=== PATIENT | female | born 1965 | race Caucasian/White ===

== ENCOUNTER 2023-05-10 09:08 | Outpatient (OUT) | payer OTHER, SELFPAY ==
[2023-05-10 09:35] LABS: Basophils Percent Auto 0.9 % (0.2-2.0); Eosinophils Absolute Auto 0.1 10^3/uL (0.0-0.7); Eosinophils Percent Auto 1.9 % (0.9-7.0); Hemoglobin 13.7 g/dL (12.0-16.0); Immature Granulocytes Abs Auto 0.01 10^3/uL (0.00-0.03); Immature Granulocytes Pct Auto 0.2 % (0.0-0.5); Mean Corpuscular HGB Conc 32.6 g/dL (29.9-35.2); Mean Corpuscular Volume 91.9 fL (81.0-99.0); Mean Platelet Volume 9.3 fL (9.5-13.5); Monocytes Absolute Auto 0.4 10^3/uL (0.3-0.8); Monocytes Percent Auto 9.8 % (1.7-12.0); Neutrophils Absolute Auto 2.7 10^3/uL (1.4-6.5); Neutrophils Percent Auto 63.2 % (43.0-75.0); Platelet Count 328 10^3/uL (150-450); Red Blood Count 4.57 10^6/uL (4.20-5.40); Red Cell Distribution Width 13.1 % (11.0-15.0); White Blood Count 4.3 10^3/uL (4.0-11.0)
[2023-05-10 12:14] LABS: Alanine Aminotransferase 19 U/L (14-59); Albumin Globulin Ratio 1.1; Albumin Level 4.1 g/dL (3.4-5.0); Alkaline Phosphatase 72 U/L (46-116); Aspartate Amino Transferase 21 U/L (15-37); BUN Creatinine Ratio 9.6; Bilirubin Total 0.5 mg/dL (0.2-1.0); Calcium 9.7 mg/dL (8.5-10.1); Carbon Dioxide 28.6 mmol/L (21.0-32.0); Chloride 102 mmol/L (98-107); Chol HDL Ratio 2.2; Cholesterol 181 mg/dL (<=200); Estimated GFR (African America >60 (>=60); Estimated GFR (Non-African Ame >60 (>=60); Free T3 2.38 pg/mL (2.18-3.98); Globulin 3.9 g/dL; Glucose 100 mg/dL (74-106); HDL Cholesterol 84 mg/dL (40-60); Potassium 4.6 mmol/L (3.5-5.1); Sodium 139 mmol/L (136-145); Thyroid Stimulating Hormone 3.138 uIU/mL (0.358-3.740); Triglycerides 51 mg/dL (<=150); VLDL CHOLESTEROL 10.2 mg/dL
[2023-05-10 12:55] LABS: Estimated Average Glucose 114 mg/dL; Glycohemoglobin A1C 5.6 % (4.5-6.2)
[2023-05-11 12:09] LABS: Insulin 4.5 uIU/mL (2.6-24.9)
== END 2023-05-10 09:09 | disposition home or self-care (01) ==
LOC: LAB 09:13
PROVIDERS: PCP Family Medicine; Visit Provider Nurse Practitioner Family
DX: Z00.00 Encounter for general adult medical examination without abnormal findings (principal)
CPT/HCPCS: 36415; 80053; 80061; 82306; 83036; 83525; 83540; 84436; 84443; 84481; 85025

== ENCOUNTER 2023-08-09 09:24 | Outpatient (OUT) | payer OTHER, SELFPAY ==
--- NOTE | 2023-08-09 | XR_ITS ---
The [address] [address] Patient Name: CORA HERNÁNDEZ MRN: [id number] date: 1965 Sex: F Assigned Patient Location: [facility] Current Patient Location: LAB Accession/Order Number: [id number] Exam Date: 08/09/2023 09:34 Report Date: 08/10/2023 06:46 At the request of: SÁNCHEZ SHARIF Procedure: XR hip LT 2V w/ pelvis PROCEDURE: XR hip LT 2V w/ pelvis HISTORY: M25.50 Arthralgia ; chronic hip pain COMPARISON: None. FINDINGS: BONES:No fracture, acute abnormality, or significant arthropathy. SOFT TISSUES:No visible soft tissue swelling. EFFUSION:None visible. OTHER: Suspect narrowing of the L4-5 disc space. XR/XR hip LT 2V w/ pelvis IMPRESSION: 1. Normal appearance of the hip joints. 2. Suspect degenerative disc disease of lower lumbar spine. Electronically authenticated by: TIMOTHY ABARCA Date: 08/10/2023 06:46
== END 2023-08-09 09:25 | disposition home or self-care (01) ==
LOC: RAD 09:25
PROVIDERS: PCP Family Medicine; Visit Provider Family Medicine
DX: M25.50 Pain in unspecified joint (principal)
CPT/HCPCS: 73502

== ENCOUNTER 2023-08-10 06:31 | Outpatient (OUT) | payer OTHER, SELFPAY ==
[2023-08-10 07:05] LABS: Basophils Absolute Auto 0.1 10^3/uL (0.0-0.1); Basophils Percent Auto 0.8 % (0.2-2.0); Eosinophils Absolute Auto 0.2 10^3/uL (0.0-0.7); Eosinophils Percent Auto 3.3 % (0.9-7.0); Hematocrit 39.9 % (36.0-48.0); Hemoglobin 13.1 g/dL (12.0-16.0); Immature Granulocytes Abs Auto 0.01 10^3/uL (0.00-0.03); Immature Granulocytes Pct Auto 0.2 % (0.0-0.5); Lymphocytes Absolute Auto 1.3 10^3/uL (1.2-3.8); Mean Corpuscular HGB Conc 32.8 g/dL (29.9-35.2); Mean Corpuscular Volume 91.5 fL (81.0-99.0); Mean Platelet Volume 9.3 fL (9.5-13.5); Monocytes Absolute Auto 0.6 10^3/uL (0.3-0.8); Monocytes Percent Auto 10.3 % (1.7-12.0); Neutrophils Absolute Auto 3.8 10^3/uL (1.4-6.5); Neutrophils Percent Auto 63.4 % (43.0-75.0); Platelet Count 321 10^3/uL (150-450); Red Blood Count 4.36 10^6/uL (4.20-5.40); Red Cell Distribution Width 13.2 % (11.0-15.0)
[2023-08-10 07:57] LABS: Alanine Aminotransferase 21 U/L (14-59); Albumin Globulin Ratio 1.1; Albumin Level 3.6 g/dL (3.4-5.0); Alkaline Phosphatase 60 U/L (46-116); Anion Gap 12.3; Aspartate Amino Transferase 24 U/L (15-37); BUN Creatinine Ratio 17.7; Bilirubin Total 0.5 mg/dL (0.2-1.0); Calcium 9.3 mg/dL (8.5-10.1); Carbon Dioxide 31.7 mmol/L (21.0-32.0); Chloride 102 mmol/L (98-107); Estimated GFR (African America >60 (>=60); Estimated GFR (Non-African Ame >60 (>=60); Globulin 3.4 g/dL; Glucose 83 mg/dL (74-106); Sodium 142 mmol/L (136-145); Thyroid Stimulating Hormone 2.753 uIU/mL (0.358-3.740); Uric Acid 4.8 mg/dL (2.6-6.0)
[2023-08-10 08:12] LABS: C Reactive Protein <0.2 mg/dL (<=1.0)
[2023-08-10 10:33] LABS: Free T4 0.89 ng/dL (0.76-1.46)
[2023-08-11 06:09] LABS: Antistreptolysin O Ab 271.4 IU/mL (0.0-200.0); Rheumatoid Factor (RF) 11.8 IU/mL (<14.0)
[2023-08-14 09:10] LABS: Antinuclear Antibodies, IFA Positive (.)
== END 2023-08-10 06:32 | disposition home or self-care (01) ==
PROVIDERS: PCP Family Medicine; Visit Provider Family Medicine
DX: M25.50 Pain in unspecified joint (principal)
CPT/HCPCS: 36415; 80053; 84439; 84443; 84550; 85025; 86038; 86060; 86140; 86430; 86431

== ENCOUNTER 2023-09-01 07:35 | Outpatient (OUT) | payer OTHER, SELFPAY ==
[2023-09-01 08:29] LABS: Creatinine Urine Random 147.94 mg/dL (20.00-300.00); Protein Creatinine Ratio Urine 0.09; Total Protein Urine Random 13.2 mg/dL (<=11.9)
[2023-09-03 12:08] LABS: Anti-Centromere B Antibodies <0.2 AI (0.0-0.9); Anti-DNA (DS) Ab Qn 2 IU/mL (0-9); Anti-Jo-1 <0.2 AI (0.0-0.9); Antichromatin Antibodies <0.2 AI (0.0-0.9); Antiribosomal P Antibodies <0.2 AI (0.0-0.9); Antiscleroderma-70 Antibodies <0.2 AI (0.0-0.9); RNP Antibodies <0.2 AI (0.0-0.9); Sjogren's Anti-SS-A <0.2 AI (0.0-0.9); Sjogren's Anti-SS-B <0.2 AI (0.0-0.9); Smith/RNP Antibodies <0.2 AI (0.0-0.9)
== END 2023-09-01 07:36 | disposition home or self-care (01) ==
PROVIDERS: PCP Family Medicine
DX: R76.8 Other specified abnormal immunological findings in serum (principal)
CPT/HCPCS: 36415; 82570; 83516; 84156; 86225; 86235

== ENCOUNTER 2024-04-28 09:18 | Outpatient (OUT) | payer OTHER, SELFPAY ==
--- OUTSIDE RECORDS SUMMARY | 2024-04-28 09:31 | XMS_ITS ---
Patient Summarization (C-CDA 2.1 CCD) Created on: April 28, 2024 JAICNTA DHALIWAL : 1965 Sex: Female Author Organization Sample organization Care Team Providers Care Backend Python Developer Name Role Phone CHANTE, DR POZO Attending Unavailable HOY, DR POZO Consulting Unavailable HOY, DR POZO Primary Care Unavailable HOY, DR POZO Admitting Unavailable WEST, DR KEVIN Alberto Consulting Unavailable HOY, DR POZO Consulting Unavailable HOY, DR POZO Primary Care Unavailable HOY, DR POZO Admitting Unavailable HOY, DR POZO Attending Unavailable WEST, DR KEVIN Alberto Consulting Unavailable HOY, DR POZO Consulting Unavailable HOY, DR POZO Primary Care Unavailable HOY, DR POZO Admitting Unavailable HOY, DR POZO Referring Unavailable HOY, DR POZO Attending Unavailable WEST, DR KEVIN Alberto Consulting Unavailable Allyn, Paula Unavailable Encounters Encounter Date Encounter Type Care Provider Facility Start: 03-24-2023 End: 03-24-2023 ambulatory Paula Gruber Other [facility] Other Start: 03-24-2023 Office outpatient vi sit 15 minutes Paulabrea Gruber [facility] Start: 02-11-2023 End: 02-11-2023 ambulatory Paula Gruber Other [facility] Other Start: 02-11-2023 Office outpatient vi sit 15 minutes Paulabrea Gruber [facility] Start: 05-08-2022 End: 05-09-[address] SÁNCHEZ CORDOBA Facility:[facility] Start: 05-04-2022 Encounter for genera l adult medical examination without abnormal findings DR SÁNCHEZ CORDOBA [facility] Start: 04-27-2022 End: 04-28-[address] SÁNCHEZ CORDOBA Facility:[facility] Start: 04-27-2022 End: 04-28-2022 Encounter for general adult medical examination without abnormal findings DR SÁNCHEZ CORDOBA Facility:[facility] Start: 05-18-2021 End: 05-19-[address] SÁNCHEZ CORDOBA Facility:[facility] Medications Current Medications Medication Drug Class(es) Dates Sig (Normalized) Sig (Original) [id number] 200 actuat albuterol 0.09 mg/actuat metered dose inhaler (1 source) beta2-Adrenergic Agonist Start: 03-24-2023 take 2 puff(s) by inhalation four times daily as needed Albuterol Sulfate HFA 108 (90 Base) MCG/ACT 2 puffs Inhalation 4 times a day prn February, Active amoxicillin 875 mg / clavulanate 125 mg oral tablet (1 source) Penicillin-class Antibacterial Start: 03-24-2023 take 1 tablet by mouth every twelve hours Amoxicillin-Pot Clavulanate 875-125 MG 1 tablet Orally every 12 hrs for 10 day(s) February, Active ciprofloxacin 3 mg/ml ophthalmic solution (2 sources) Quinolone Antimicrobial Start: 02-11-2023 take 1 drop(s) into the eye(s) every four hours Ciloxan 0.3 % 1 drop each eye every 4 hrs for 5 days Start this prescription if you begin to have drainage or crusting of your eyes. Jan, Active Escitalopram (3 sources) Serotonin Reuptake Inhibitor Escitalopram Oxalate 10 MG Oral for 30 Days Not-Taking Lexapro Active fluticasone propionate 0.05 mg/actuat metered dose nasal spray (1 source) Corticosteroid Start: 03-24-2023 take 2 spray(s) nasal route once daily Fluticasone Propionate 50 MCG/ACT 2 sprays Nasally Once a day for 14 day(s) February, Active meloxicam (2 sources) Nonsteroidal Anti-inflammatory Drug Mobic Active olopatadine 2 mg/ml ophthalmic solution (2 sources) Histamine-1 Receptor Inhibitor Start: 02-11-2023 take 1 drop(s) into the eye(s) once daily Pataday 0.2 % 1 drop into affected eye Ophthalmic Once a day Start this prescription today Jan, Active predniSONE 20 mg oral tablet (1 source) Start: 03-24-2023 take 1 tablet by mouth every twelve hours predniSONE 20 MG 1 tablet Orally bid for 5 day(s) February, Active Payers Date Payer Category Payer Unknown [id number] 1965 Unknown [id number] 1965 Unknown [id number] 1957 Unknown [id number] Problems Active Problems Problem Classification Problem Date Documented Date Episodic/Chronic Inflammation; infection of eye (except that caused by tuberculosis or sexually transmitteddisease) (1 source) Unspecified conjunctivitis Episodic Other connective tissue disease (1 source) Impingement syndrome of left shoulder; Translations: [IMPINGEMENT SYNDROME LEFT SHOULDER] Onset: 05-04-2022 Episodic Other screening for suspected conditions (not mental disorders or infectious disease) (4 sources) Encounter for screening mammogram for malignant neoplasm of breast; Translations: [ENC SCR MAMMO MALIG NEOPLASM BREAST] Onset: 05-08-2022 Episodic Other upper respiratory infections (1 source) Acute sinusitis, unspecified Episodic Residual codes; unclassified (1 source) Family history of malignant neoplasm of trachea, bronchus and lung; Translations: [FAM HX MALIG NEOPLSM TRACH BRON LNG] Onset: 05-10-2022 Episodic Past or Other Problems Problem Classification Problem Date Documented Date Episodic/Chronic Sprains and strains (4 sources) Sprain of interphalangeal joint of right great toe, sequela; Translations: [SPRAIN IP JOINT RT GREAT TOE SEQ] Onset: 05-18-2021 Episodic Results Test Name Value Interpretation Reference Range Facility MG MAMM SCREEN 3D BUFFY CADon 05-08-2022 MG MAMM SCREEN 3D BUFFY CAD Patient: JACINTA DHALIWAL Exam Date: 05/08/2022 : 1965 Gender:F Ordering : DR SÁNCHEZ CORDOBA . Admission #: [id number] Family : Order #: [id number] CLICK HERE TO VIEW EXAM RADIOLOGY REPORT PROCEDURE: MAMMOGRAM SCREENING 3D BILATERAL CAD COMPARISON: MG MAMM BUFFY DIAG W CAD, 08/12/2020. MG MAMM BUFFY DIAG FU, 03/23/2020. INDICATIONS: Screening mammography Calculator Name NCI Breast Cancer Risk Assessment Tool 5 Year Breast Cancer Risk 1.00% Lifetime Breast Cancer Risk 7.50% Personal Breast Cancer No Personal Ovarian Cancer No Treatments None Family Cancers Father with lung cancer at age 70. LOCATION: [facility] BREAST COMPOSITION: Heterogeneously dense,which may obscure small masses. FINDINGS: DIAGNOSTIC CATEGORY 2--BENIGN FINDING. NO CHANGE FROM COMPARISON. Scattered benign-appearing nodules are present. Scattered benign-appearing calcifications are present. Scattered benign-appearing lymph nodes are present. RIGHT BREAST: No significant suspicious finding. LEFT BREAST: No significant suspicious finding. Stable focal asymmetry inner outer quadrant, posterior breast RECOMMENDATIONS: ROUTINE MAMMOGRAM AND CLINICAL EVALUATION IN 12 MONTHS. PLEASE NOTE: A NORMAL MAMMOGRAM DOES NOT EXCLUDE THE POSSIBILITY OF BREAST CANCER. A CLINICALLY SUSPICIOUS PALPABLE LUMP SHOULD BE BIOPSIED. Dictated by: Kevin Ta MD on 05/08/2022 at 09:02 Approved by: Kevin Ta MD on 05/08/2022 at 09:04 Normal [facility] CBC AUTO DIFFon 04-27-2022 BASO # 0.0 103/ul Normal 0.0-0.1 [facility] Comment on above: Performed By: #### C BC #### [facility] [address] [address] [address] Lisbeth Parks Basophils/100 WBC (Bld) 0.9 % Normal 0.2-2.0 [facility] Comment on above: Performed By: #### C BC #### [facility] [address] [place] [address] Dr. Lisbeth Parks EO # 0.1 103/ul Normal 0.0-0.7 [facility] Comment on above: Performed By: #### C BC #### [facility] [address] [address] [address] Lisbeth Parks Eosinophils/100 WBC (Bld) 3.0 % Normal 0.9-7.0 [facility] Comment on above: Performed By: #### C BC #### [facility] [address] [place] [address] Dr. Lisbeth Parks Erythrocyte distribution width (RBC) [Ratio] 13.1 % Normal 11.0-15.0 [facility] Comment on above: Performed By: #### C BC #### [facility] [address] [address] [address] Lisbeth Parks Hematocrit (Bld) [Volume fraction] 41.5 % Normal 36.0-48.0 [facility] Comment on above: Performed By: #### C BC #### [facility] [address] [place] [address] Dr. Lisbeth Parks Hemoglobin (Bld) [Mass/Vol] 13.4 g/dL Normal 12.0-16.0 [facility] Comment on above: Performed By: #### C BC #### [facility] [address] [place] [address] Dr. Lisbeth Parks IG # 0.01 10e3/ul Normal 0.00-0.03 [facility] Comment on above: Performed By: #### C BC #### [facility] [address] [place] [address] Dr. Lisbeth Parks IG % 0.2 % Normal 0.0-0.5 [facility] Comment on above: Performed By: #### C BC #### [facility] [address] [place] [address] Dr. Lisbeth Parks LYMPH # 1.5 103/ul Normal 1.2-3.8 [facility] Comment on above: Performed By: #### C BC #### [facility] [address] [place] [address] Dr. Lisbeth Parks Lymphocytes/100 WBC (Bld) 34.4 % Normal 20.5-60.0 [facility] Comment on above: Performed By: #### C BC #### [facility] [address] [place] [address] Dr. Lisbeth Parks MANUAL DIFF REQ NO Normal [facility] Comment on above: Performed By: #### C BC #### [facility] [address] [place] [address] Dr. Lisbeth Parks MCH (RBC) [Entitic mass] 30.7 pg Normal 26.7-34.0 [facility] Comment on above: Performed By: #### C BC #### [facility] [address] [address] [address] Lisbeth Parks MCHC (RBC) [Mass/Vol] 32.3 g/dL Normal 29.9-35.2 [facility] Comment on above: Performed By: #### C BC #### [facility] [address] [address] [address] Lisbeth Parks MCV (RBC) [Entitic vol] 95.0 fL Normal 81.0-99.0 [facility] Comment on above: Performed By: #### C BC #### [facility] [address] [address] [address] Lisbeth Parks MONO # 0.4 103/ul Normal 0.3-0.8 [facility] Comment on above: Performed By: #### C BC #### [facility] [address] [place] [address] Dr. Lisbeth Parks Monocytes/100 WBC (Bld) 10.1 % Normal 1.7-12.0 [facility] Comment on above: Performed By: #### C BC #### [facility] [address] [place] [address] Dr. Lisbeth Parks NEUT # 2.2 103/ul Normal 1.4-6.5 [facility] Comment on above: Performed By: #### C BC #### [facility] [address] [place] [address] Dr. Lisbeth Parks Neutrophils/100 WBC (Bld) 51.4 % Normal 43.0-75.0 [facility] Comment on above: Performed By: #### C BC #### [facility] [address] [place] [address] Dr. Lisbeth Parks Platelet mean volume (Bld) [Entitic vol] 9.4 fL Critically low 9.5-13.5 [facility] Comment on above: Performed By: #### C BC #### [facility] [address] [place] [address] Dr. Lisbeth Parks PLT 363 103/ul Normal 150-450 [facility] Comment on above: Performed By: #### C BC #### [facility] [address] [address] [address] Lisbeth Parks RBC 4.37 106/ul Normal 4.20-5.40 [facility] Comment on above: Performed By: #### C BC #### [facility] [address] [place] [address] Dr. Lisbeth Parks WBC 4.3 103/ul Normal 4.0-11.0 [facility] Comment on above: Performed By: #### C BC #### [facility] [address] [place] [address] Dr. Lisbeth Parks FREE THYROXINE INDEX T7on FTI 2.53 Normal 1.30-4.50 [facility] Comment on above: Performed By: #### T SH, LIPID, T7, CMP #### [facility] [address] [place] [address] Dr. Lisbeth Parks T3U 32.0 % Normal 30.0-39.0 [facility] Comment on above: Performed By: #### T SH, LIPID, T7, CMP #### [facility] [address] [place] [address] Dr. Lisbeth Parks T4 [Mass/Vol] 7.90 ug/dL Normal 4.80-13.90 [facility] Comment on above: Performed By: #### T SH, LIPID, T7, CMP #### [facility] [address] [place] [address] Dr. Lisbeth Parks GLYCOHEMOGLOBIN A1Con 2021 ADA RECOMMENDATION SEE BELOW Normal [facility] Comment on above: Result Comment: ADA RECOMMENDED LIMIT 4.0 - 6.0 ADA THERAPEUTIC TARGET < 7.0 ACTION SUGGESTED > 7.0 Performed By: #### T SH, LIPID, T7, CMP #### [facility] [address] [place] [address] Dr. Lisbeth Parks Glucose [Mass/Vol] 120 mg/dL Normal [facility] Comment on above: Performed By: #### T SH, LIPID, T7, CMP #### [facility] [address] [place] [address] Dr. Lisbeth Parks HbA1c (Bld) [Mass fraction] 5.8 % Normal 4.5-6.2 [facility] Comment on above: Performed By: #### T SH, LIPID, T7, CMP #### [facility] [address] [address] [address] Lisbeth Parks IRONon 04-27-2022 Iron [Mass/Vol] 113.0 ug/dL Normal 50.0-170.0 [facility] Comment on above: Performed By: #### T SH, LIPID, T7, CMP #### [facility] [address] [place] [address] Dr. Lisbeth Parks LIPID PROFILEon 04-27-2022 CHOL-HDL RATIO NORM SEE BELOW Normal [facility] Comment on above: Result Comment: 3.3 - 4.4 LOW RISK 4.4 - 7.1 AVERAGE RISK 7.1 - 11.0 MODERATE RISK >11.0 HIGH RISK Performed By: #### T SH, LIPID, T7, CMP #### [facility] [address] [place] [address] Dr. Lisbeth Parks Cholesterol [Mass/Vol] 177 mg/dL Normal <=200 [facility] Comment on above: Performed By: #### T SH, LIPID, T7, CMP #### [facility] [address] [place] [address] Dr. Lisbeth Parks Cholesterol in HDL [Mass/Vol] 83 mg/dL Critically high 40-60 [facility] Comment on above: Performed By: #### T SH, LIPID, T7, CMP #### [facility] [address] [place] [address] Dr. Lisbeth Parks Cholesterol in LDL [Mass/Vol] 83.4 mg/dL Normal [facility] Comment on above: Performed By: #### T SH, LIPID, T7, CMP #### [facility] [address] [place] [address] Dr. Lisbeth Parks Cholesterol.total/Cho lesterol in HDL [Mass ratio] 2.1 {ratio} Normal [facility] Comment on above: Performed By: #### T SH, LIPID, T7, CMP #### [facility] [address] [place] [address] Dr. Lisebth Parks HDL NORMAL > or = 60 mg/dl - LO W CARDIOVASCULAR RISK <40 mg/dl - HIGH CARDIOVASCULAR RISK Normal [facility] Comment on above: Performed By: #### T SH, LIPID, T7, CMP #### [facility] [address] [address] [address] Lisbeth Parks LDL CALC NORMAL SEE BELOW Normal [facility] Comment on above: Result Comment: <100 mg/dl OPTIMAL 100 - 129 mg/dl NEAR OR ABOVE OPTIMAL 130 - 159 mg/dl BORDERLINE HIGH 160 - 189 mg/dl HIGH >190 mg/dl VERY HIGH Performed By: #### T SH, LIPID, T7, CMP #### [facility] [address] [address] [address] Lisbeth Parks Triglyceride [Mass/Vol] 53 mg/dL Normal <=150 [facility] Comment on above: Performed By: #### T SH, LIPID, T7, CMP #### [facility] [address] [address] [address] Lisbeth Parks VLDL CALC 10.6 mg/dL Normal [facility] Comment on above: Performed By: #### T SH, LIPID, T7, CMP #### [facility] [address] [address] [address] Lisbeth Parks PROF 14(COMP METB)on 022 Albumin [Mass/Vol] 4.1 g/dL Normal 3.4-5.0 [facility] Comment on above: Performed By: #### T SH, LIPID, T7, CMP #### [facility] [address] [address] [address] Lisbeth Parks Albumin/Globulin [Mass ratio] 1.1 {ratio} Normal [facility] Comment on above: Performed By: #### T SH, LIPID, T7, CMP #### [facility] [address] [address] [address] Lisbeth Parks ALP [Catalytic activity/Vol] 72 U/L Normal 46-116 [facility] Comment on above: Performed By: #### T SH, LIPID, T7, CMP #### [facility] [address] [address] [address] Lisbeth Parks ALT [Catalytic activity/Vol] 19 U/L Normal 14-59 [facility] Comment on above: Performed By: #### T SH, LIPID, T7, CMP #### [facility] [address] [address] [address] Lisbeth Parks Anion gap [Moles/Vol] 8.7 mmol/L Normal [facility] Comment on above: Performed By: #### T SH, LIPID, T7, CMP #### [facility] [address] [address] [address] Lisbeth Parks AST [Catalytic activity/Vol] 18 U/L Normal 15-37 [facility] Comment on above: Performed By: #### T SH, LIPID, T7, CMP #### [facility] [address] [place] [address] Dr. Lisbeth Parks Bilirubin [Mass/Vol] 0.4 mg/dL Normal 0.2-1.0 [facility] Comment on above: Performed By: #### T SH, LIPID, T7, CMP #### [facility] [address] [place] [address] Dr. Lisbeth Parks Calcium [Mass/Vol] 9.3 mg/dL Normal 8.5-10.1 [facility] Comment on above: Performed By: #### T SH, LIPID, T7, CMP #### [facility] [address] [place] [address] Dr. Lisbeth Parks Chloride [Moles/Vol] 102 mmol/L Normal 98-107 [facility] Comment on above: Performed By: #### T SH, LIPID, T7, CMP #### [facility] [address] [place] [address] Dr. Lisbeth Parks CO2 [Moles/Vol] 31.9 mmol/L Normal 21.0-32.0 [facility] Comment on above: Performed By: #### T SH, LIPID, T7, CMP #### [facility] [address] [place] [address] Dr. Lisbeth Parks Creatinine [Mass/Vol] 0.87 mg/dL Normal 0.55-1.02 [facility] Comment on above: Performed By: #### T SH, LIPID, T7, CMP #### [facility] [address] [address] [address] Lisbeth Parks EGFR-AF P[place] >60 Normal >=60 [facility] Comment on above: Performed By: #### T SH, LIPID, T7, CMP #### [facility] [address] [address] [address] Lisbeth Parks EGFR-NON AF [place] >60 Normal >=60 [facility] Comment on above: Performed By: #### T SH, LIPID, T7, CMP #### [facility] [address] [address] [address] Lisbeth Parks Globulin (S) [Mass/Vol] 3.7 g/dL Normal [facility] Comment on above: Performed By: #### T SH, LIPID, T7, CMP #### [facility] [address] [place] [address] Dr. Lisbeth Parks Glucose [Mass/Vol] 93 mg/dL Normal 74-106 [facility] Comment on above: Performed By: #### T SH, LIPID, T7, CMP #### [facility] [address] [address] [address] Lisbeth Parks Potassium [Moles/Vol] 4.6 mmol/L Normal 3.5-5.1 [facility] Comment on above: Performed By: #### T SH, LIPID, T7, CMP #### [facility] [address] [address] [address] Lisbeth Parks Protein [Mass/Vol] 7.8 g/dL Normal 6.4-8.2 [facility] Comment on above: Performed By: #### T SH, LIPID, T7, CMP #### [facility] [address] [address] [address] Lisbeth Parks Sodium [Moles/Vol] 138 mmol/L Normal 136-145 [facility] Comment on above: Performed By: #### T SH, LIPID, T7, CMP #### [facility] [address] [address] [address] Lisbeth Parks Urea nitrogen [Mass/Vol] 7.0 mg/dL Normal 7.0-18.0 [facility] Comment on above: Performed By: #### T SH, LIPID, T7, CMP #### [facility] [address] [place] [address] Dr. Lisbeth Parks Urea nitrogen/Creatinine [Mass ratio] 8.0 mg/mg Normal [facility] Comment on above: Performed By: #### T SH, LIPID, T7, CMP #### [facility] [address] [place] [address] Dr. Lisbeth Parks TSHon 04-27-2022 TSH 3.256 uIU/mL Normal 0.358-3.740 [facility] Comment on above: Performed By: #### T SH, LIPID, T7, CMP #### [facility] [address] [place] [address] Dr. Lisbeth Parks CBC AUTO DIFFon 05-18-2021 BASO # 0.0 103/ul Normal 0.0-0.1 [facility] Comment on above: Performed By: #### C BC #### [facility] [address] [place] [address] Ross Lisa Basophils/100 WBC (Bld) 0.5 % Normal 0.2-2.0 [facility] Comment on above: Performed By: #### C BC #### [facility] [address] [place] [address] Ross Lisa EO # 0.0 103/ul Normal 0.0-0.7 [facility] Comment on above: Performed By: #### C BC #### [facility] [address] [place] [address] Ross Lisa Eosinophils/100 WBC (Bld) 0.7 % Critically low 0.9-7.0 [facility] Comment on above: Performed By: #### C BC #### [facility] [address] [place] [address] Ross Lisa Erythrocyte distribution width (RBC) [Ratio] 13.2 % Normal 11.0-15.0 [facility] Comment on above: Performed By: #### C BC #### [facility] [address] [place] [address] Rosschele Gonzalez Hematocrit (Bld) [Volume fraction] 41.8 % Normal 36.0-48.0 [facility] Comment on above: Performed By: #### C BC #### [facility] [address] [place] [address] Ross Lisa Hemoglobin (Bld) [Mass/Vol] 13.6 g/dL Normal 12.0-16.0 [facility] Comment on above: Performed By: #### C BC #### [facility] [address] [place] [address] Ross Lisa IG # 0.01 10e3/ul Normal 0.00-0.03 [facility] Comment on above: Performed By: #### C BC #### [facility] [address] [place] [address] Ross Lisa IG % 0.2 % Normal 0.0-0.5 [facility] Comment on above: Performed By: #### C BC #### [facility] [address] [place] [address] Ross Lisa LYMPH # 1.4 103/ul Normal 1.2-3.8 [facility] Comment on above: Performed By: #### C BC #### [facility] [address] [place] [address] Ross Gonzalez Lymphocytes/100 WBC (Bld) 24.5 % Normal 20.5-60.0 [facility] Comment on above: Performed By: #### C BC #### [facility] [address] [place] [address] Ross Gonzalez MANUAL DIFF REQ NO Normal [facility] Comment on above: Performed By: #### C BC #### [facility] [address] [place], [place] [id number] Rosschele Gonzalez MCH (RBC) [Entitic mass] 30.4 pg Normal 26.7-34.0 [facility] Comment on above: Performed By: #### C BC #### [facility] [address] [place] [address] Rosschele Dollen MCHC (RBC) [Mass/Vol] 32.5 g/dL Normal 29.9-35.2 [facility] Comment on above: Performed By: #### C BC #### [facility] [address] [place], [place] [id number] Ross Gonzalez MCV (RBC) [Entitic vol] 93.5 fL Normal 81.0-99.0 [facility] Comment on above: Performed By: #### C BC #### [facility] [facility] [address] [place], [place] [id number] Rosschele Gonzalez MONO # 0.5 103/ul Normal 0.3-0.8 [facility] Comment on above: Performed By: #### C BC #### [facility] [address] [place] [address] Ross Gonzalez Monocytes/100 WBC (Bld) 9.6 % Normal 1.7-12.0 [facility] Comment on above: Performed By: #### C BC #### [facility] [address] [place] [address] Rosschele Dollen NEUT # 3.6 103/ul Normal 1.4-6.5 [facility] Comment on above: Performed By: #### C BC #### [facility] [address] [place], [place] [id number] Ross Gonzalez Neutrophils/100 WBC (Bld) 64.5 % Normal 43.0-75.0 [facility] Comment on above: Performed By: #### C BC #### [facility] [address] [place], [place] [id number] Rosschele Gonzalez Platelet mean volume (Bld) [Entitic vol] 9.7 fL Normal 9.5-13.5 [facility] Comment on above: Performed By: #### C BC #### [facility] [address] [place], [place] [id number] Ross Lisa PLT 298 103/ul Normal 150-450 [facility] Comment on above: Performed By: #### C BC #### [facility] [address] [place] [address] Ross Lisa RBC 4.47 106/ul Normal 4.20-5.40 [facility] Comment on above: Performed By: #### C BC #### [facility] [address] [address] Ross Gonzalez WBC 5.5 103/ul Normal 4.0-11.0 [facility] Comment on above: Performed By: #### C BC #### [facility] [address] [place], [place] [address] Ross Gonzalez SED RATE WESTERGRENon 2020 SED RATE 9 mm/hr Normal <=30 [facility] Comment on above: Performed By: #### S EDR #### [facility] [address] [address] Ross Gonzalez URIC ACID SERUMon 05-18-2021 Urate [Mass/Vol] 5.0 mg/dL Normal 2.5-6.2 [facility] Comment on above: Performed By: #### T SH, LIPID, T7, CMP #### [facility] [id number] Lisbeth Parks Outside Colonoscopyon 2020 Outside Colonoscopy [id number]. 00CD:127 Normal [facility] Lab Reportson 04-12-2021 Lab Reports [id number]. 00CD:127 Normal [facility] Pre-Certification Formon Pre-Certification Form [id number] .[id number]:127 Normal [facility] Consent for Procedure/Surger yon 03-30-2021 Consent for Procedure/Surgery [id number] .[id number]:127 Normal [facility] March 30, 2021 Sánchez Cordoba, [address] [place] [id number] Re: JACINTA DHALIWAL Date of : 1965 Thank you for your referral of Jacinta Dhaliwal who was seen on consultation for screening colonoscopy. I have enclosed my consultation notes for your review and will be happy to follow Jacinta. Sincerely, Edvin Padgett MD General Surgery Normal [facility] Ambulatory Clinical Summaryo n 03-29-2021 Ambulatory Clinical Summary {[id number]}CD:[id number] Normal [facility] Patient Educationon 03-29-20 21 Patient Education Colonoscopy A colonoscopy is an exam to evaluate your entire colon. In this exam, your colon is cleansed. A long fiberoptic tube is inserted through your rectum and into your colon. The fiberoptic scope (endoscope ) is a long bundle of enclosed and very flexible fibers. These fibers transmit light to the area examined and send images from that area to your caregiver. Discomfort is usually minimal. You may be given a drug to help you sleep (sedative ) during or prior to the procedure. This exam helps to detect lumps (tumors ), polyps, inflammation, and areas of bleeding. Your caregiver may also take a small piece of tissue (biopsy ) that will be examined under a microscope. LET YOUR CAREGIVER KNOW ABOUT: ? Allergies to food or medicine. ? Medicines taken, including vitamins, herbs, eyedrops, payz-npd-wzxyuuj medicines, and creams. ? Use of steroids (by mouth or creams). ? Previous problems with anesthetics or numbing medicines. ? History of bleeding problems or blood clots. ? Previous surgery. ? Other health problems, including diabetes and kidney problems. ? Possibility of , if this applies. BEFORE THE PROCEDURE ? A clear liquid diet may be required for 2 days before the exam. ? Ask your caregiver about changing or stopping your regular medications. ? Liquid injections (enemas ) or laxatives may be required. ? A large amount of electrolyte solution may be given to you to drink over a short period of time. This solution is used to clean out your colon. ? You should be present 60 minutes prior to your procedure or as directed by your caregiver. AFTER THE PROCEDURE ? If you received a sedative or pain relieving medication, you will need to arrange for someone to drive you home. ? Occasionally, there is a little blood passed with the first bowel movement. Do not be concerned. FINDING OUT THE RESULTS OF YOUR TEST Not all test results are available during your visit. If your test results are not back during the visit, make an appointment with your caregiver to find out the results. Do not assume everything is normal if you have not heard from your caregiver or the medical facility. It is important for you to follow up on all of your test results. HOME CARE INSTRUCTIONS ? It is not unusual to pass moderate amounts of gas and experience mild abdominal cramping following the procedure. This is due to air being used to inflate your colon during the exam. Walking or a warm pack on your belly (abdomen ) may help. ? You may resume all normal meals and activities after sedatives and medicines have worn off. ? Only take iekh-emv-kszhoni or prescription medicines for pain, discomfort, or fever as directed by your caregiver. Do not use aspirin or blood thinners if a biopsy was taken. Consult your caregiver for medicine usage if biopsies were taken. SEEK IMMEDIATE MEDICAL CARE IF: ? You have a fever. ? You pass large blood clots or fill a toilet with blood following the procedure. This may also occur 10 to 14 days following the procedure. This is more likely if a biopsy was taken. ? You develop abdominal pain that keeps getting worse and cannot be relieved with medicine. Document Released: 10/12/2001 Document Revised: 01/06/2013 Document Reviewed: 05/27/2009 ExitCare? Patient Information ?2013 [employer]. Radiology Colonoscopy, Adult, Care After This sheet gives you information about how to care for yourself after your procedure. Your health care provider may also give you more specific instructions. If you have problems or questions, contact your health care provider. What can I expect after the procedure? After the procedure, it is common to have: ? A small amount of blood in your stool for 24 hours after the procedure. ? Some gas. ? Mild abdominal cramping or bloating. Follow these instructions at home: General instructions ? For the first 24 hours after the procedure: ? Do not drive or use machinery. ? Do not sign important documents. ? Do not drink alcohol. ? Do your regular daily activities at a slower pace than normal. ? Eat soft, loas-nr-driwox foods. ? Take vaca-emj-dbsdrub or prescription medicines only as told by your health care provider. Relieving cramping and bloating ? Try walking around when you have cramps or feel bloated. ? Apply heat to your abdomen as told by your health care provider. Use a heat source that your health care provider recommends, such as a moist heat pack or a heating pad. ? Place a towel between your skin and the heat source. ? Leave the heat on for 20?30 minutes. ? Remove the heat if your skin turns bright red. This is especially important if you are unable to feel pain, heat, or cold. You may have a greater risk of getting burned. Eating and drinking ? Drink enough fluid to keep your urine pale yellow. ? Resume your normal diet as instructed by your h (more content not included)... Normal [facility] Physician Referralon 021 Physician Referral [id number] .[id number]:127 [facility] Social History Date Type Detail Facility Unknown if ever smoked [facility] Other Sex Assigned At Sex Assigned At Bir th [facility] Other Vital Signs Date Time Vital Sign Value Performing Clinician Facility 03-24-2023 09:15-0400 Body height 160.02 cm Paula Gruber Other [facility] Other 03-24-2023 09:15-0400 Body mass index (BMI) [Ratio] 20.69 kg/m2 Paula Gruber Other [facility] Other 03-24-2023 09:15-0400 Body temperature 98 [degF] Paula Gruber Other [facility] Other 03-24-2023 09:15-0400 Body weight 52.98 kg Paula Gruber Other [facility] Other 03-24-2023 09:15-0400 Respiratory rate 18 /min Paula Gruber Other [facility] Other 03-24-2023 09:15-0400 SaO2% (BldA) [Mass fraction] 98 % Paula Gruber Other [facility] Other 02-11-2023 10:05-0400 Body height 160.02 cm Paula Gruber Other [facility] Other 02-11-2023 10:05-0400 Body mass index (BMI) [Ratio] 20.9 kg/m2 Paula Grubre Other [facility] Other 02-11-2023 10:05-0400 Body temperature 98.6 [degF] Paula Gruber Other [facility] Other 02-11-2023 10:05-0400 Body weight 53.52 kg Paula Gruber Other [facility] Other 02-11-2023 10:05-0400 Respiratory rate 18 /min Paula Gruber Other [facility] Other 02-11-2023 10:05-0400 SaO2% (BldA) [Mass fraction] 99 % Paula Gruber Other [facility] Other Evaluation note 03-24-2023 Note Date & Type Note Facility 03-24-2023 Evaluation note Encounter Date Diagnosis Assessment Notes February, Acute sinusitis, recurrence not specified, unspecified location (ICD-10 - J01.90) Sinusitis home care material was printed Drink plenty fluids, get plenty of rest. Take the amoxicillin with clavulanate and prednisone as prescribed until gone. Use the Flonase inhaler as prescribed until your symptoms improve. Continue take your Shirley daily. Follow-up with your family physician if no improvement in 2 to 3-day [facility] Other Evaluation note 02-11-2023 Note Date & Type Note Facility 02-11-2023 Evaluation note Encounter Date Diagnosis Assessment Notes Jan, Conjunctivitis of both eyes, unspecified conjunctivitis type (ICD-10 - H10.9) Drink plenty fluids, get plenty of rest. Use the Pataday as prescribed until your symptoms improved. If you develop drainage and crusting of your eyes, stop the Pataday and begin the Ciloxan drops. Take Zyrtec or Claritin daily anterior symptoms improved. Follow-up with your family physician if no improvement in 2 to 3 days. Jan, Other Conjunctivitis material was printed [facility] Other Clinical Note 04-27-2022 Note Date & Type Note Facility 04-27-2022 Note PROCEDURE: XR SHOULD ER LT 2V or > COMPARISON: None. HISTORY: Impingement syndrome of shoulder region FINDINGS: BONES:No fracture, acute abnormality, or significant arthropathy. SOFT TISSUES:Negative. No visible soft tissue swelling. EFFUSION:None visible. OTHER: Negative. IMPRESSION: No acute abnormality Electronically authenticated by: KEVIN TA Date: 2022-04-27 17:20 [facility] Clinical Note 05-18-2021 Note Date & Type Note Facility 05-18-2021 Note PROCEDURE: XR FOOT R T MIN 3 VIEWS COMPARISON: None. HISTORY: Sprain of collateral ligament of interphalangeal joint of great toe FINDINGS: BONES:No acute fracture or dislocation. Moderate degenerative changes of the first metatarsal-phalangeal joint with joint space narrowing and marginal osteophyte formation and subchondral sclerosis SOFT TISSUES:Negative. No visible soft tissue swelling. EFFUSION:None visible. OTHER: Negative. IMPRESSION: Moderate osteoarthritis first metatarsal phalangeal joint Electronically authenticated by: KEVIN TA Date: 2021-05-18 13:48 [facility] Clinical Note 03-29-2021 Note Date & Type Note Facility 03-29-2021 Note Chief Complaint Consultation for Screening Colonoscopy HPI Staff 55 year old female referred by Dr. Cordoba for Screening Colonoscopy. No previous colonoscopy completed. Denies symptoms of rectal pain/bleeding, abdominal pain, constipation or diarrhea. No family history of colon cancer. History of Present Illness 55 yo female referred for colorectal screening, denies change in bms or blood in stools, no abdominal complaints; no previous colonoscopy or abdominal operations; no asa or NSAID use, no SBE prophylaxis; no fmhx of GI malignancy or IBD. Review of Systems PHQ Score Initial Depression Screen Score: 0 Physical Exam Vitals & Measurements T: 36.7 ?C (Tympanic) BP: 118/78 HT: 160.02 cm HT: 160.0 cm WT: 52.18 kg WT: 52.2 kg BMI: 20.38 HEENT: normal conjunctiva, sclera clear, no scleral icterus, EOM intact, PERRLA, oral mucosa moist without lesions. Neck: trachea midline, no mass, symmetric, no thyromegaly or nodules, no adenopathy Respiratory: lungs CTA, respirations non labored. Cardiovascular: regular rate and rhythm, no murmur, no pedal edema or varicosities. Gastrointestinal: soft, non distended, no tenderness, no masses, no palpable hernias, diastasis recti no, no hepatosplenomegaly; normal bs Lymphatic: no cervical adenopathy, Musculoskeletal: normal gait, digits and nails without infection, nodes, cyanosis, clubbing. Skin: no rashes, no lesions, no ulcers, no subcutaneous nodules, induration. Psychiatric/Neuro: oriented to time, place, person, judgement normal, affect appropriate for age, insight intact, no focal deficits. Tests: review of old records completed, Discussed surgical options, risks, and possible complications with patient. Assessment/Plan 1. Screening for malignant neoplasm of colon (Z12.11: Encounter for screening for malignant neoplasm of colon) plan colonoscopy under anesthesia, informed consent obtained. Follow-up No qualifying data available Patient Education Colonoscopy, Adult, Care After Colonoscopy Problem List/Past Medical History Ongoing Anxiety BMI 20.0-20.9, adult COVID-19 Eczema Insomnia Screening for malignant neoplasm of colon Historical No qualifying data Medications escitalopram 10 mg Tab, 10 mg= 1 tab(s), Oral, Daily Allergies No Known Allergies Social History Tobacco Never (less than 100 in lifetime) Tobacco Use:., 03/29/2021 Family History Cancer: Father. Hypertension: Mother. Immunizations Vaccine Date Status SARS-CoV-2 (COVID-19) mRNA-1273 vaccine 01/21/2021 Recorded SARS-CoV-2 (COVID-19) mRNA-1273 vaccine 12/22/2020 Recorded [facility] Comment on above: Result Comment: Elec tronically Signed By: JOHN UGARTE, Edvin Boo\Date and Time Signed: 03/29/21 13:57 EDT History general Narrative - Reported Note Date & Type Note Facility History general Narrative - Reported Type Medical History anxiety Medical History Arthritis [facility] Other Summary Purpose Family History No Family History Records FoundNo Family History Records Found Advance Directives No Advanced Directives Records FoundNo Advanced Directives Records Found Additional Source Comments INFORMATION SOURCE (unrecogn ized section and content) DATE CREATED AUTHOR 04/15/2021 [facility] DATE CREATED AUTHOR AUTHOR'S ORGANIZ ATION 05/17/2022 [facility] REASON FOR VISIT (unrecogniz ed section and content) EYE IRRITATION, POSS PINK EY Ebelieves she has a sinus infection FOR RECORDS PERTAINING TO PATIENTS WHO ARE OR HAVE BEEN ENROLLED IN A CHEMICAL DEPENDENCY/SUBSTANCEABUSE PROGRAM, SOME INFORMATION MAY BE OMITTED. This clinical summary was aggregated from multiple sources. Caution should be exercised in using it in the provision of clinical care. This summary normalizes information from multiple sources, and as a consequence, information in this document may materially change the coding, format and clinical context of patient data. In addition, data may be omitted in some cases. CLINICAL DECISIONS SHOULD BE BASED ON THE PRIMARY CLINICAL RECORDS. [employer] provides no warranty or guarantee of the accuracy or completeness of information in this document.
[2024-04-28 09:56] LABS: Basophils Absolute Auto 0.1 10^3/uL (0.0-0.1); Basophils Percent Auto 0.9 % (0.2-2.0); Eosinophils Absolute Auto 0.1 10^3/uL (0.0-0.7); Eosinophils Percent Auto 1.1 % (0.9-7.0); Hematocrit 42.6 % (36.0-48.0); Hemoglobin 13.8 g/dL (12.0-16.0); Immature Granulocytes Abs Auto 0.03 10^3/uL (0.00-0.03); Immature Granulocytes Pct Auto 0.4 % (0.0-0.5); Lymphocytes Absolute Auto 2.9 10^3/uL (1.2-3.8); Lymphocytes Percent Auto 41.5 % (20.5-60.0); Mean Corpuscular HGB Conc 32.4 g/dL (29.9-35.2); Mean Corpuscular Hemoglobin 30.1 pg (26.7-34.0); Mean Platelet Volume 9.5 fL (9.5-13.5); Monocytes Absolute Auto 0.6 10^3/uL (0.3-0.8); Monocytes Percent Auto 9.1 % (1.7-12.0); Neutrophils Absolute Auto 3.3 10^3/uL (1.4-6.5); Platelet Count 437 10^3/uL (150-450); Red Blood Count 4.58 10^6/uL (4.20-5.40); Red Cell Distribution Width 13.2 % (11.0-15.0)
[2024-04-28 10:00] LABS: Estimated Average Glucose 108 mg/dL; Glycohemoglobin A1C 5.4 % (4.5-6.2)
[2024-04-28 10:59] LABS: Alanine Aminotransferase 21 U/L (14-59); Alkaline Phosphatase 78 U/L (46-116); Anion Gap 11.9; Aspartate Amino Transferase 19 U/L (15-37); BUN Creatinine Ratio 14.3; Bilirubin Total 0.5 mg/dL (0.2-1.0); Calcium 9.4 mg/dL (8.5-10.1); Carbon Dioxide 30.9 mmol/L (21.0-32.0); Chloride 100 mmol/L (98-107); Chol HDL Ratio 2.5; Cholesterol 215 mg/dL (<=200); Estimated GFR (African America >60 (>=60); Estimated GFR (Non-African Ame >60 (>=60); Globulin 4.1 g/dL; Glucose 94 mg/dL (74-106); HDL Cholesterol 86 mg/dL (40-60); Potassium 3.8 mmol/L (3.5-5.1); Sodium 139 mmol/L (136-145); Thyroid Stimulating Hormone 3.829 uIU/mL (0.358-3.740); Total Protein 8.1 g/dL (6.4-8.2); Triglycerides 102 mg/dL (<=150); VLDL CHOLESTEROL 20.4 mg/dL
[2024-04-28 11:08] LABS: Free T4 1.07 ng/dL (0.76-1.46)
== END 2024-04-28 09:19 | disposition home or self-care (01) ==
LOC: LAB 09:19
PROVIDERS: PCP Family Medicine; Visit Provider Family Medicine
DX: Z00.00 Encounter for general adult medical examination without abnormal findings (principal)
CPT/HCPCS: 36415; 80053; 80061; 83036; 84439; 84443; 85025

== ENCOUNTER 2024-05-21 09:23 | Outpatient (OUT) | payer OTHER, SELFPAY ==
--- NOTE | 2024-05-21 09:31 | MM_ITS ---
Patient Name: CORA HERNÁNDEZ MR#: [id number] : 1965 Exam Date: 05/21/2024 Ordering Doctor: DR Johnny Cordoba . RADIOLOGY REPORT PROCEDURE: MM TOMOSYNTHESIS SCREENING BI COMPARISON: MG MAMM SCREEN 3D BUFFY CAD, 05/08/2022. MG MAMM BUFFY DIAG W CAD, 08/12/2020. INDICATIONS: Screening Calculator Name NCI Breast Cancer Risk Assessment Tool 5 Year Breast Cancer Risk 1.10% Lifetime Breast Cancer Risk 7.20% Personal Breast Cancer No Personal Ovarian Cancer No Treatments None Family Cancers Father with lung cancer at age 70. LOCATION: [facility] BREAST COMPOSITION: The breasts are heterogeneously dense,which may obscure small masses. FINDINGS: DIAGNOSTIC CATEGORY 1--NEGATIVE. NO CHANGE FROM COMPARISON ASSESSMENT. RIGHT BREAST: No significant suspicious finding. LEFT BREAST: No significant suspicious finding. Focal asymmetry upper outer quadrant in the axillary tail, stable RECOMMENDATIONS: ROUTINE MAMMOGRAM AND CLINICAL EVALUATION IN 12 MONTHS. PLEASE NOTE: A NORMAL MAMMOGRAM DOES NOT EXCLUDE THE POSSIBILITY OF BREAST CANCER. A CLINICALLY SUSPICIOUS PALPABLE LUMP SHOULD BE BIOPSIED. Dictated by: Eliel Christiansen MD on 05/21/2024 at 10:29 Approved by: Eliel Christiansen MD on 05/21/2024 at 10:30
== END 2024-05-21 09:24 | disposition home or self-care (01) ==
LOC: MAMMO 09:23
PROVIDERS: PCP Family Medicine; Visit Provider Family Medicine
DX: Z12.31 Encounter for screening mammogram for malignant neoplasm of breast (principal); Z80.1 Family history of malignant neoplasm of trachea, bronchus and lung
CPT/HCPCS: 77063; 77067

== ENCOUNTER 2024-05-26 06:38 | Outpatient (OUT) | payer OTHER, SELFPAY ==
--- NOTE | 2024-05-26 06:42 | MR_ITS ---
The [address] [address] Patient Name: CORA HERNÁNDEZ MRN: [id number] date: 1965 Sex: F Assigned Patient Location: MRI Current Patient Location: MRI Accession/Order Number: [id number] Exam Date: 05/26/2024 06:50 Report Date: 05/26/2024 13:44 At the request of: SÁNCHEZ SHARIF Procedure: MR head/brain wo/w con EXAMINATION: MR head/brain wo/w con HISTORY: M79.7 Fibromyalgia COMPARISON: No relevant comparison available. TECHNIQUE: A variety of imaging planes and parameters were utilized for visualization of suspected pathology. Images were performed without and with Dotarem contrast. FINDINGS: CEREBRUM: No edema, hemorrhage, mass, acute infarction, or inappropriate atrophy. CEREBELLUM: No edema, hemorrhage, mass, acute infarction, or inappropriate atrophy. BRAINSTEM: No edema, hemorrhage, mass, acute infarction, or inappropriate atrophy. CSF SPACES: Ventricles, cisterns, and sulci are appropriate for age. No hydrocephalus, subarachnoid hemorrhage, or mass. SKULL: No mass or other significant visible lesion. SINUSES: Limited views demonstrate no significant mucosal thickening or fluid. ORBITS: Limited views are unremarkable. OTHER: No abnormal meningeal or parenchymal enhancement. MR/MR head/brain wo/w con IMPRESSION: 1. No suspicious findings to account for patient's symptoms. Electronically authenticated by: TIMOTHY ABARCA Date: 05/26/2024 13:44
--- OUTSIDE RECORDS SUMMARY | 2024-05-26 06:43 | XMS_ITS | CCD ---
Author Organization [facility] Care Team Providers Care Rolls Baker Name Role Phone CHANTE, DR POZO Attending Unavailable CHANTE, DR POZO Consulting Unavailable CHANTE, DR POZO Primary Care Unavailable CHANTE, DR POZO Admitting Unavailable CELY, DR KEVIN Alberto Consulting Unavailable CHANTE, DR POZO Consulting Unavailable CHANTE, DR POZO Primary Care Unavailable CHANTE, DR POZO Admitting Unavailable CHANTE, DR POZO Attending Unavailable CELY, DR KEVIN Alberto Consulting Unavailable CHANTE, DR POZO Consulting Unavailable CHANTE, DR OPZO Primary Care Unavailable CHANTE, DR POZO Admitting Unavailable CHANTE, DR POZO Referring Unavailable CHANTE, DR POZO Attending Unavailable CELY, DR KEVIN Alberto Consulting Unavailable Paula Gruber Unavailable Medications Current Medications Medication Drug Class(es) Dates Sig (Normalized) Sig (Original) [id number] 200 actuat albuterol 0.09 mg/actuat metered dose [...] have drainage or crusting of your eyes. 16 Jan, 2023 Active Escitalopram (3 sources) Serotonin Reuptake Inhibitor [...] Orally bid for 5 day(s) February, Active Problems Active Problems Problem Classification Problem Date [...] : DR SÁNCHEZ CORDOBA . Admission #: [id number] Family : Order #: [id number] CLICK HERE TO VIEW EXAM RADIOLOGY REPORT [...] lung cancer at age 72. LOCATION: [facility] BREAST COMPOSITION: Heterogeneously dense,which may [...] MD on 05/08/2022 at 09:04 Normal [facility] CBC AUTO DIFFon 04-27-2022 BASO # 0.0 103/ul Normal 0.0-0.1 [facility] Comment on above: Performed By: #### C BC #### [facility] [address] [place] [address] Dr. Lisbeth Parks Basophils/100 WBC (Bld) 0.9 % Normal 0.2-2.0 [facility] Comment on above: Performed By: #### C BC #### [facility] [address] [place] [address] Dr. Lisbeth Parks EO # 0.1 103/ul Normal 0.0-0.7 [facility] Comment on above: Performed By: #### C BC #### [facility] [address] [place] [address] Dr. Lisbeth Parks Eosinophils/100 WBC (Bld) 3.0 % Normal 0.9-7.0 [facility] Comment on above: Performed By: #### C BC #### [facility] [address] [place] [address] Dr. Lisbeth Parks Erythrocyte distribution width (RBC) [Ratio] 13.1 % Normal 11.0-15.0 [facility] Comment on above: Performed By: #### C BC #### [facility] [address] [place] [address] Dr. Lisbeth Parks Hematocrit (Bld) [Volume fraction] 41.5 % Normal 36.0-48.0 [facility] Comment on above: Performed By: #### C BC #### [facility] [address] [place] [address] Dr. Lisbeth Parks Hemoglobin (Bld) [Mass/Vol] 13.4 g/dL Normal 12.0-16.0 [facility] Comment on above: Performed By: #### C BC #### [facility] [address] [place] [address] Dr. Lisbeth Parks IG # 0.01 10e3/ul Normal 0.00-0.03 [facility] Comment on above: Performed By: #### C BC #### [facility] [address] [place] [address] Dr. Lisbeth Parks IG % 0.2 % Normal 0.0-0.5 [facility] Comment on above: Performed By: #### C BC #### [facility] [address] [place] [address] Dr. Lisbeth Parks LYMPH # 1.5 103/ul Normal 1.2-3.8 [facility] Comment on above: Performed By: #### C BC #### [facility] [address] [place] [address] Dr. Lisbeth Parks Lymphocytes/100 WBC (Bld) 34.4 % Normal 20.5-60.0 [facility] Comment on above: Performed By: #### C BC #### [facility] [address] [place] [address] Dr. Lisbeth Parks MANUAL DIFF REQ NO Normal [facility] Comment on above: Performed By: #### C BC #### [facility] [address] [place] [address] Dr. Lisbeth Parks MCH (RBC) [Entitic mass] 30.7 pg Normal 26.7-34.0 [facility] Comment on above: Performed By: #### C BC #### [facility] [address] [place] [address] Dr. Lisbeth Parks MCHC (RBC) [Mass/Vol] 32.3 g/dL Normal 29.9-35.2 [facility] Comment on above: Performed By: #### C BC #### [facility] [address] [place] [address] Dr. Lisbeth Parks MCV (RBC) [Entitic vol] 95.0 fL Normal 81.0-99.0 [facility] Comment on above: Performed By: #### C BC #### [facility] [address] [place] [address] Dr. Lisbeth Parks MONO # 0.4 103/ul Normal 0.3-0.8 [facility] Comment on above: Performed By: #### C BC #### [facility] [address] [place] [address] Dr. Lisbeth Parks Monocytes/100 WBC (Bld) 10.1 % Normal 1.7-12.0 [facility] Comment on above: Performed By: #### C BC #### [facility] [address] [place] [address] Dr. Lisbeth Parks NEUT # 2.2 103/ul Normal 1.4-6.5 [facility] Comment on above: Performed By: #### C BC #### [facility] [address] [place] [address] Dr. Lisbeth Parks Neutrophils/100 WBC (Bld) 51.4 % Normal 43.0-75.0 [facility] Comment on above: Performed By: #### C BC #### [facility] [address] [place] [address] Dr. Lisbeth Parks Platelet mean volume (Bld) [Entitic vol] 9.4 fL Critically low 9.5-13.5 [facility] Comment on above: Performed By: #### C BC #### [facility] [address] [place] [address] Dr. Lisbeth Parks PLT 363 103/ul Normal 150-450 [facility] Comment on above: Performed By: #### C BC #### [facility] [address] [place] [address] Dr. Lisbeth Parks RBC 4.37 106/ul Normal 4.20-5.40 [facility] Comment on above: Performed By: #### C BC #### [facility] [address] [place] [address] Dr. Lisbeth Parks WBC 4.3 103/ul Normal 4.0-11.0 [facility] Comment on above: Performed By: #### C BC #### [facility] [address] [place] [address] Dr. Lisbeth Parks FREE THYROXINE INDEX T7on FTI 2.53 Normal 1.30-4.50 [facility] Comment on above: Performed By: #### T SH, LIPID, T7, CMP #### [facility] [address] [place] [address] Dr. Lisbeth Parks T3U 32.0 % Normal 30.0-39.0 [facility] Comment on above: Performed By: #### T SH, LIPID, T7, CMP #### [facility] [address] [place] [address] Dr. Lisbeth Parks T4 [Mass/Vol] 7.90 ug/dL Normal 4.80-13.90 [facility] Comment on above: Performed By: #### T SH, LIPID, T7, CMP #### [facility] [address] [place] [address] Dr. Lisbeth Parks GLYCOHEMOGLOBIN A1Con 2021 ADA RECOMMENDATION SEE BELOW Normal [facility] Comment on above: Result Comment: ADA RECOMMENDED LIMIT 4.0 - 6.0 ADA THERAPEUTIC TARGET < 7.0 ACTION SUGGESTED > 7.0 Performed By: #### T SH, LIPID, T7, CMP #### [facility] [address] [address] [address] Lisbeth Parks Glucose [Mass/Vol] 120 mg/dL Normal [facility] Comment on above: Performed By: #### T SH, LIPID, T7, CMP #### [facility] [address] [address] [address] Lisbeth Parks HbA1c (Bld) [Mass fraction] 5.8 % Normal 4.5-6.2 [facility] Comment on above: Performed By: #### T SH, LIPID, T7, CMP #### [facility] [address] [address] [address] Lisbeth Parks IRONon 04-27-2022 Iron [Mass/Vol] 113.0 ug/dL Normal 50.0-170.0 [facility] Comment on above: Performed By: #### T SH, LIPID, T7, CMP #### [facility] [address] [place] [address] Dr. Lisbeth Parks LIPID PROFILEon 04-27-2022 CHOL-HDL RATIO NORM SEE BELOW Normal [facility] Comment on above: Result Comment: 3.3 - 4.4 LOW RISK 4.4 - 7.1 AVERAGE RISK 7.1 - 11.0 MODERATE RISK >11.0 HIGH RISK Performed By: #### T SH, LIPID, T7, CMP #### [facility] [address] [place] [address] Dr. Lisbeth Parks Cholesterol [Mass/Vol] 177 mg/dL Normal <=200 [facility] Comment on above: Performed By: #### T SH, LIPID, T7, CMP #### [facility] [address] [address] [address] Lisbeth Parks Cholesterol in HDL [Mass/Vol] 83 mg/dL Critically high 40-60 [facility] Comment on above: Performed By: #### T SH, LIPID, T7, CMP #### [facility] [address] [address] [address] Lisbeth Parks Cholesterol in LDL [Mass/Vol] 83.4 mg/dL Normal [facility] Comment on above: Performed By: #### T SH, LIPID, T7, CMP #### [facility] [address] [address] [address] Lisbeth Parks Cholesterol.total/Cho lesterol in HDL [Mass ratio] 2.1 {ratio} Normal [facility] Comment on above: Performed By: #### T SH, LIPID, T7, CMP #### [facility] [address] [address] [address] Lisbeth Parks HDL NORMAL > or = 60 mg/dl - LO W CARDIOVASCULAR RISK <40 mg/dl - HIGH CARDIOVASCULAR RISK Normal [facility] Comment on above: Performed By: #### T SH, LIPID, T7, CMP #### [facility] [address] [place] [address] Dr. Lisbeth Parks LDL CALC NORMAL SEE BELOW Normal [facility] Comment on above: Result Comment: <100 mg/dl OPTIMAL 100 - 129 mg/dl NEAR OR ABOVE OPTIMAL 130 - 159 mg/dl BORDERLINE HIGH 160 - 189 mg/dl HIGH >190 mg/dl VERY HIGH Performed By: #### T SH, LIPID, T7, CMP #### [facility] [address] [place] [address] Dr. Lisbeth Parks Triglyceride [Mass/Vol] 53 mg/dL Normal <=150 [facility] Comment on above: Performed By: #### T SH, LIPID, T7, CMP #### [facility] [address] [address] [address] Lisbeth Parks VLDL CALC 10.6 mg/dL Normal [facility] Comment on above: Performed By: #### T SH, LIPID, T7, CMP #### [facility] [address] [address] [address] Lisbeth Parks PROF 14(COMP METB)on 022 Albumin [Mass/Vol] 4.1 g/dL Normal 3.4-5.0 [facility] Comment on above: Performed By: #### T SH, LIPID, T7, CMP #### [facility] [address] [place] [address] Dr. Lisbeth Parks Albumin/Globulin [Mass ratio] 1.1 {ratio} Normal [facility] Comment on above: Performed By: #### T SH, LIPID, T7, CMP #### [facility] [address] [address] [address] Lisbeht Parks ALP [Catalytic activity/Vol] 72 U/L Normal 46-116 [facility] Comment on above: Performed By: #### T SH, LIPID, T7, CMP #### [facility] [address] [address] [address] Lisbeth aPrks ALT [Catalytic activity/Vol] 19 U/L Normal 14-59 [facility] Comment on above: Performed By: #### T SH, LIPID, T7, CMP #### [facility] [address] [place] [address] Dr. Lisbeth Parks Anion gap [Moles/Vol] 8.7 mmol/L Normal [facility] Comment on above: Performed By: #### T SH, LIPID, T7, CMP #### [facility] [address] [place] [address] Dr. Lisbeth Parks AST [Catalytic activity/Vol] 18 U/L Normal 15-37 [facility] Comment on above: Performed By: #### T SH, LIPID, T7, CMP #### [facility] [address] [place] [address] Dr. Lisbeth Parks Bilirubin [Mass/Vol] 0.4 mg/dL Normal 0.2-1.0 [facility] Comment on above: Performed By: #### T SH, LIPID, T7, CMP #### [facility] [address] [place] [address] Dr. Lisbeth Parks Calcium [Mass/Vol] 9.3 mg/dL Normal 8.5-10.1 [facility] Comment on above: Performed By: #### T SH, LIPID, T7, CMP #### [facility] [address] [place] [address] Dr. Lisbeth Parks Chloride [Moles/Vol] 102 mmol/L Normal 98-107 [facility] Comment on above: Performed By: #### T SH, LIPID, T7, CMP #### [facility] [address] [place] [address] Dr. Lisbeth Parks CO2 [Moles/Vol] 31.9 mmol/L Normal 21.0-32.0 [facility] Comment on above: Performed By: #### T SH, LIPID, T7, CMP #### [facility] [address] [address] [address] Lisbeth Parks Creatinine [Mass/Vol] 0.87 mg/dL Normal 0.55-1.02 [facility] Comment on above: Performed By: #### T SH, LIPID, T7, CMP #### [facility] [address] [address] [address] Lisbeth Parks EGFR-AF [place] >60 Normal >=60 [facility] Comment on above: Performed By: #### T SH, LIPID, T7, CMP #### [facility] [address] [place] [address] Dr. Lisbeth Parks EGFR-NON AF [place] >60 Normal >=60 [facility] Comment on above: Performed By: #### T SH, LIPID, T7, CMP #### [facility] [address] [address] [address] Lisbeth Parks Globulin (S) [Mass/Vol] 3.7 g/dL Normal [facility] Comment on above: Performed By: #### T SH, LIPID, T7, CMP #### [facility] [address] [place] [address] Dr. Lisbeth Parks Glucose [Mass/Vol] 93 mg/dL Normal 74-106 [facility] Comment on above: Performed By: #### T SH, LIPID, T7, CMP #### [facility] [address] [address] [address] Lisbeth Parks Potassium [Moles/Vol] 4.6 mmol/L Normal 3.5-5.1 [facility] Comment on above: Performed By: #### T SH, LIPID, T7, CMP #### [facility] [address] [place] [address] Dr. Lisbeth Parks Protein [Mass/Vol] 7.8 g/dL Normal 6.4-8.2 [facility] Comment on above: Performed By: #### T SH, LIPID, T7, CMP #### [facility] [address] [place] [address] Dr. Lisbeth Parks Sodium [Moles/Vol] 138 mmol/L Normal 136-145 [facility] Comment on above: Performed By: #### T SH, LIPID, T7, CMP #### [facility] [address] [place] [address] Dr. Lisbeth Parks Urea nitrogen [Mass/Vol] 7.0 mg/dL Normal 7.0-18.0 [facility] Comment on above: Performed By: #### T SH, LIPID, T7, CMP #### [facility] [address] [place] [address] Dr. Lisbeth Parks Urea nitrogen/Creatinine [Mass ratio] 8.0 mg/mg Normal [facility] Comment on above: Performed By: #### T SH, LIPID, T7, CMP #### [facility] [address] [place] [address] Dr. Lisbeth Parks TSHon 04-27-2022 TSH 3.256 uIU/mL Normal 0.358-3.740 [facility] Comment on above: Performed By: #### T SH, LIPID, T7, CMP #### [facility] [address] [place] [address] Dr. Lisbeth Parks CBC AUTO DIFFon 05-18-2021 BASO # 0.0 103/ul Normal 0.0-0.1 [facility] Comment on above: Performed By: #### C BC #### [facility] [address] [place] [address] Ross Lisa Basophils/100 WBC (Bld) 0.5 % Normal 0.2-2.0 [facility] Comment on above: Performed By: #### C BC #### [facility] [address] [place] [address] Ross Lisa EO # 0.0 103/ul Normal 0.0-0.7 [facility] Comment on above: Performed By: #### C BC #### [facility] [address] [place] [address] Ross Lisa Eosinophils/100 WBC (Bld) 0.7 % Critically low 0.9-7.0 [facility] Comment on above: Performed By: #### C BC #### [facility] [address] [place] [address] Ross Gonzalez Erythrocyte distribution width (RBC) [Ratio] 13.2 % Normal 11.0-15.0 [facility] Comment on above: Performed By: #### C BC #### [facility] [address] [place] [address] Ross Gonzalez Hematocrit (Bld) [Volume fraction] 41.8 % Normal 36.0-48.0 [facility] Comment on above: Performed By: #### C BC #### [facility] [address] [place] [address] Ross Gonzalez Hemoglobin (Bld) [Mass/Vol] 13.6 g/dL Normal 12.0-16.0 [facility] Comment on above: Performed By: #### C BC #### [facility] [address] [place] [address] Rosschele Gonzalez IG # 0.01 10e3/ul Normal 0.00-0.03 [facility] Comment on above: Performed By: #### C BC #### [facility] [address] [place] [address] Rosschele Gonzalez IG % 0.2 % Normal 0.0-0.5 [facility] Comment on above: Performed By: #### C BC #### [facility] [address] [place] [address] Ross Lisa LYMPH # 1.4 103/ul Normal 1.2-3.8 [facility] Comment on above: Performed By: #### C BC #### [facility] [address] [place] [address] Ross Gonzalez Lymphocytes/100 WBC (Bld) 24.5 % Normal 20.5-60.0 [facility] Comment on above: Performed By: #### C BC #### [facility] [address] [place] [address] Ross Gonzalez MANUAL DIFF REQ NO Normal [facility] Comment on above: Performed By: #### C BC #### [facility] [address] [id number] Rosschele Gonzalez MCH (RBC) [Entitic mass] 30.4 pg Normal 26.7-34.0 [facility] Comment on above: Performed By: #### C BC #### [facility] [address] [place], [place] [id number] Rosschele Dollen MCHC (RBC) [Mass/Vol] 32.5 g/dL Normal 29.9-35.2 [facility] Comment on above: Performed By: #### C BC #### [facility] [address] [place], [place] [id number] Ross Lisa MCV (RBC) [Entitic vol] 93.5 fL Normal 81.0-99.0 [facility] Comment on above: Performed By: #### C BC #### [facility] [address] [place], [place] [address] Ross Lisa MONO # 0.5 103/ul Normal 0.3-0.8 [facility] Comment on above: Performed By: #### C BC #### [facility] [address] [place], [place] [address] Ross Lisa Monocytes/100 WBC (Bld) 9.6 % Normal 1.7-12.0 [facility] Comment on above: Performed By: #### C BC #### [facility] [address] [place], [place] [address] Ross Lisa NEUT # 3.6 103/ul Normal 1.4-6.5 [facility] Comment on above: Performed By: #### C BC #### [facility] [address] [place], [place] [address] Rsos Lisa Neutrophils/100 WBC (Bld) 64.5 % Normal 43.0-75.0 [facility] Comment on above: Performed By: #### C BC #### [facility] [address] [place], [place] [address] Ross Lisa Platelet mean volume (Bld) [Entitic vol] 9.7 fL Normal 9.5-13.5 [facility] Comment on above: Performed By: #### C BC #### [facility] [address] [place], [place] [address] Ross Lisa PLT 298 103/ul Normal 150-450 [facility] Comment on above: Performed By: #### C BC #### [facility] [address] [id number] Rosschele Dollen RBC 4.47 106/ul Normal 4.20-5.40 [facility] Comment on above: Performed By: #### C BC #### [facility] [address] [id number] Ross Lisa WBC 5.5 103/ul Normal 4.0-11.0 [facility] Comment on above: Performed By: #### C BC #### [facility] [address] [address] Ross Lisa [facility] 9 mm/hr Normal <=30 [facility] Comment on above: Performed By: #### S EDR #### [facility] [address] [address] Ross Gonzalez URIC ACID SERUMon 05-18-2021 Urate [Mass/Vol] 5.0 mg/dL Normal 2.5-6.2 [facility] Comment on above: Performed By: #### T SH, LIPID, T7, CMP #### [facility] [address] [place], [place] [address] Dr. Lisbeth Parks Outside Colonoscopyon 2020 Outside Colonoscopy [id number]. 00CD:127 Normal [facility] Lab Reportson 04-12-2021 Lab Reports [id number]. 00CD:127 Normal [facility] Pre-Certification Formon Pre-Certification Form [id number] .00CD:127 Normal [facility] Consent for Procedure/Surger yon 03-30-2021 Consent for Procedure/Surgery [id number] .00CD:127 Normal [facility] Letter [facility] March 30, 2021 Sánchez Hosoto, [address] [place] [address] [place] [address] Re: JACINTA DHALIWAL Date of : 1965 Thank you for your referral of Jacinta Dhaliwal who was seen on consultation for screening colonoscopy. I have enclosed my consultation notes for your review and will be happy to follow Jacinta. Sincerely, Edvin Padgett MD General Surgery Normal [facility] Ambulatory Clinical Summaryo n 03-29-2021 Ambulatory Clinical Summary {[id number] Normal [facility] Patient Educationon 03-29-20 21 Patient [...] ? Medicines taken, including vitamins, herbs, eyedrops, bfzm-pgo-dmucjio medicines, and creams. ? Use of steroids [...] medicines have worn off. ? Only take boiu-jbb-hqtnrfm or prescription medicines for pain, discomfort, or [...] 01/06/2013 Document Reviewed: 05/27/2009 ExitCare? Patient Information ?2014 [employer]. Radiology Colonoscopy, Adult, Care After This sheet [...] slower pace than normal. ? Eat soft, ewch-ex-cyhqbq foods. ? Take brnp-yzd-qzqlkll or prescription medicines only as told by [...] your h (more content not included)... Normal [facility] Physician Referralon 021 Physician Referral [id number] .00CD:127 Normal [facility] Vital Signs Date Time Vital Sign Value Performing Clinician Facility 03-24-2023 09:15-0400 Body height 160.02 cm Paula Gruber Other [facility] Other 03-24-2023 09:15-0400 Body mass index (BMI) [Ratio] 20.69 kg/m2 Paula Gruber Other [facility] Other 03-24-2023 09:15-0400 Body temperature 98 [degF] Paula Gruber Other [facility] Other 03-24-2023 09:15-0400 Body weight 52.98 kg Paula Gruber Other [facility] Other 03-24-2023 09:15-0400 Respiratory rate 18 /min Paula Allyn Other [facility] Other 03-24-2023 09:15-0400 SaO2% (BldA) [Mass fraction] 98 % Paula Allyn Other [facility] Other 02-11-2023 10:05-0400 Body height 160.02 cm Paula Allyn [facility] Other 02-11-2023 10:05-0400 Body mass index (BMI) [Ratio] 20.9 kg/m2 Paula Allyn Other [facility] Other 02-11-2023 10:05-0400 Body temperature 98.6 [degF] Paula Allyn Other [facility] Other 02-11-2023 10:05-0400 Body weight 53.52 kg Paula Allyn Other [facility] Other 02-11-2023 10:05-0400 Respiratory rate 18 /min Paula Allyn Other [facility] Other 02-11-2023 10:05-0400 SaO2% (BldA) [Mass fraction] 99 % Paula Allyn Other [facility] Other Encounters Encounter Date Encounter Type Care Provider Facility Start: 03-24-2023 End: 03-24-2023 ambulatory Paula Gruber Other [facility] Other Start: 03-24-2023 Office outpatient vi sit 15 minutes Paula Gruber [facility] Start: 02-11-2023 End: 02-11-2023 ambulatory Paula Gruber Other [facility] Other Start: 02-11-2023 Office outpatient vi sit 15 minutes Paula Gruber [facility] Start: 05-08-2022 End: 05-09-[address] SÁNCHEZ CORDOBA Facility:[facility] Start: 05-04-2022 Encounter for genera l adult medical examination without abnormal findings DR SÁNCHEZ CORDOBA [facility] Start: 04-27-2022 End: 04-28-[address] SÁNCHEZ CORDOBA Facility:[facility] Start: 04-27-2022 End: 04-28-2022 Encounter for general adult medical examination without abnormal findings DR SÁNCHEZ CORDOBA Facility:[facility] Start: 05-18-2021 End: 05-19-[address] SÁNCHEZ CORDOBA Facility:[facility] Payers Date Payer Category Payer Unknown [id number] 1965 Unknown [id number] 1965 Unknown [id number] 1957 Unknown [id number] Social History Date Type Detail Facility Unknown if ever smoked [facility] Other Sex Assigned At Sex Assigned At [facility] Other Evaluation note 03-24-2023 Note Date & [...] if no improvement in 2 to 3-day [facility] Other Evaluation note 02-11-2023 Note Date & [...] days. Jan, Other Conjunctivitis material was printed [facility] Other Clinical Note 04-27-2022 Note Date & Type Note Facility 04-27-2022 Note PROCEDURE: XR SHOULD ER LT 2V or > COMPARISON: None. HISTORY: Impingement syndrome of shoulder region FINDINGS: BONES:No fracture, acute abnormality, or significant arthropathy. SOFT TISSUES:Negative. No visible soft tissue swelling. EFFUSION:None visible. OTHER: Negative. IMPRESSION: No acute abnormality Electronically authenticated by: KEVIN TA Date: 2022-04-27 17:20 [facility] Clinical Note 05-18-2021 Note Date & Type [...] authenticated by: KEVIN TA Date: 2021-05-18 13:48 [facility] Clinical Note 03-29-2021 Note Date & [...] Recorded SARS-CoV-2 (COVID-19) mRNA-1273 vaccine 12/22/2020 Recorded [facility] Comment on above: Result Comment: Elec tronically Signed By: JOHN UGARTE, Edvin Boo\Date and Time Signed: 03/29/21 13:57 EDT History general Narrative - Reported Note Date & Type Note Facility History general Narrative - Reported Type Medical History anxiety Medical History Arthritis [facility] Other Summary Purpose Family History No Family History Records FoundNo Family History Records Found Advance Directives No Advanced Directives Records FoundNo Advanced Directives Records Found Additional Source Comments INFORMATION SOURCE (unrecogn ized section and content) DATE CREATED AUTHOR 04/15/2021 [facility] DATE CREATED AUTHOR AUTHOR'S ORGANIZ ATION 05/17/2022 [...] BE BASED ON THE PRIMARY CLINICAL RECORDS. [facility]. provides no warranty or guarantee of the accuracy or completeness of information in this document.
== END 2024-05-26 06:39 | disposition home or self-care (01) ==
LOC: MRI 06:39
PROVIDERS: PCP Family Medicine; Visit Provider Family Medicine
DX: M79.7 Fibromyalgia (principal)
CPT/HCPCS: 70553; A9575

== ENCOUNTER 2024-06-03 07:22 | Outpatient (OUT) | payer OTHER, SELFPAY ==
--- OUTSIDE RECORDS SUMMARY | 2024-06-03 07:25 | XMS_ITS | CCD ---
Author Organization [facility] Care Team Providers Care Mechanical Estimator Name Role Phone CHANTE, DR POZO Attending [...] Drug Class(es) Dates Sig (Normalized) Sig (Original) [id number] 200 actuat albuterol 0.09 mg/actuat metered dose [...] : DR SÁNCHEZ CORDOBA . Admission #: [id number] Family : Order #: [id number] CLICK HERE TO VIEW EXAM RADIOLOGY REPORT [...] lung cancer at age 72. LOCATION: [facility] BREAST COMPOSITION: Heterogeneously dense,which may obscure small [...] MD on 05/08/2022 at 09:04 Normal [facility] CBC AUTO DIFFon 04-27-2022 BASO # 0.0 103/ul Normal 0.0-0.1 [facility] Comment on above: Performed By: #### C BC #### [facility] [address] [place] [address] Dr. Lisbeth Parks Basophils/100 WBC (Bld) 0.9 % Normal 0.2-2.0 [facility] Comment on above: Performed By: #### C BC #### [facility] [address] [place] [address] Dr. Lisbeth Parks EO # 0.1 103/ul Normal 0.0-0.7 [facility] Comment on above: Performed By: #### C BC #### [facility] [address] [place] [address] Dr. Lisbeth Parks Eosinophils/100 WBC (Bld) 3.0 % Normal 0.9-7.0 [facility] Comment on above: Performed By: #### C BC #### [facility] [address] [place] [address] Dr. Lisbeth Parks Erythrocyte distribution width (RBC) [Ratio] 13.1 % Normal 11.0-15.0 [facility] Comment on above: Performed By: #### C BC #### [facility] [address] [place] [address] Dr. Lisbeth Parks Hematocrit (Bld) [Volume fraction] 41.5 % Normal 36.0-48.0 [facility] Comment on above: Performed By: #### C BC #### [facility] [address] [place] [address] Dr. Lisbeth Parks Hemoglobin (Bld) [Mass/Vol] 13.4 g/dL Normal 12.0-16.0 [facility] Comment on above: Performed By: #### C BC #### [facility] [address] [place] [address] Dr. Lisbeth Parks IG # 0.01 10e3/ul Normal 0.00-0.03 [facility] Comment on above: Performed By: #### C BC #### [facility] [address] [place] [address] Dr. Lisbeth Parks IG % 0.2 % Normal 0.0-0.5 [facility] Comment on above: Performed By: #### C BC #### [facility] [address] [place] [address] Dr. Lisbeth Parks LYMPH # 1.5 103/ul Normal 1.2-3.8 [facility] Comment on above: Performed By: #### C BC #### [facility] [address] [place] [address] Dr. Lisbeth Parks Lymphocytes/100 WBC (Bld) 34.4 % Normal 20.5-60.0 [facility] Comment on above: Performed By: #### C BC #### [facility] [address] [place] [address] Dr. Lisbeth Parks MANUAL DIFF REQ NO Normal [facility] Comment on above: Performed By: #### C BC #### [facility] [address] [place] [address] Dr. Lisbeth Parks MCH (RBC) [Entitic mass] 30.7 pg Normal 26.7-34.0 [facility] Comment on above: Performed By: #### C BC #### [facility] [address] [place] [address] Dr. Lisbeth Parks MCHC (RBC) [Mass/Vol] 32.3 g/dL Normal 29.9-35.2 [facility] Comment on above: Performed By: #### C BC #### [facility] [address] [place] [address] Dr. Lisbeth Parks MCV (RBC) [Entitic vol] 95.0 fL Normal 81.0-99.0 [facility] Comment on above: Performed By: #### C BC #### [facility] [address] [place] [address] Dr. Lisbeth Parks MONO # 0.4 103/ul Normal 0.3-0.8 [facility] Comment on above: Performed By: #### C BC #### [facility] [address] [place] [address] Dr. Lisbeth Parks Monocytes/100 WBC (Bld) 10.1 % Normal 1.7-12.0 [facility] Comment on above: Performed By: #### C BC #### [facility] [address] [place] [address] Dr. Lisbeth Parks NEUT # 2.2 103/ul Normal 1.4-6.5 [facility] Comment on above: Performed By: #### C BC #### [facility] [address] [place] [address] Dr. Lisbeth Parks Neutrophils/100 WBC (Bld) 51.4 % Normal 43.0-75.0 [facility] Comment on above: Performed By: #### C BC #### [facility] [address] [place] [address] Dr. Lisbeth Parks Platelet mean volume (Bld) [Entitic vol] 9.4 fL Critically low 9.5-13.5 [facility] Comment on above: Performed By: #### C BC #### [facility] [address] [place] [address] Dr. Lisbeth Parks PLT 363 103/ul Normal 150-450 [facility] Comment on above: Performed By: #### C BC #### [facility] [address] [place] [address] Dr. Lisbeth Parks RBC 4.37 106/ul Normal 4.20-5.40 [facility] Comment on above: Performed By: #### C BC #### [facility] [address] [place] [address] Dr. Lisbeth Parks WBC 4.3 103/ul Normal 4.0-11.0 [facility] Comment on above: Performed By: #### C BC #### [facility] [address] [place] [address] Dr. Lisbeth Parks FREE THYROXINE INDEX T7on FTI 2.53 Normal 1.30-4.50 [facility] Comment on above: Performed By: #### T SH, LIPID, T7, CMP #### [facility] [address] [place] [address] Dr. Lisbeth Parks T3U 32.0 % Normal 30.0-39.0 [facility] Comment on above: Performed By: #### T SH, LIPID, T7, CMP #### [facility] [address] [place] [address] Dr. Lisbeth Parks T4 [Mass/Vol] 7.90 ug/dL Normal 4.80-13.90 [facility] Comment on above: Performed By: #### T SH, LIPID, T7, CMP #### [facility] [address] [place] [address] Dr. Lisbeth Parks GLYCOHEMOGLOBIN A1Con 2021 ADA RECOMMENDATION SEE BELOW Normal [facility] Comment on above: Result Comment: ADA RECOMMENDED LIMIT 4.0 - 6.0 ADA THERAPEUTIC TARGET < 7.0 ACTION SUGGESTED > 7.0 Performed By: #### T SH, LIPID, T7, CMP #### [facility] [address] [address] [address] Lisbeth Parks Glucose [Mass/Vol] 120 mg/dL Normal [facility] Comment on above: Performed By: #### T SH, LIPID, T7, CMP #### [facility] [address] [address] [address] Lisbeth Parks HbA1c (Bld) [Mass fraction] 5.8 % Normal 4.5-6.2 [facility] Comment on above: Performed By: #### T SH, LIPID, T7, CMP #### [facility] [address] [address] [address] Lisbeth Parks IRONon 04-27-2022 Iron [Mass/Vol] 113.0 ug/dL Normal 50.0-170.0 [facility] Comment on above: Performed By: #### T SH, LIPID, T7, CMP #### [facility] [address] [place] [address] Dr. Lisbeth Parks LIPID PROFILEon 04-27-2022 CHOL-HDL RATIO NORM SEE BELOW Normal [facility] Comment on above: Result Comment: 3.3 - 4.4 LOW RISK 4.4 - 7.1 AVERAGE RISK 7.1 - 11.0 MODERATE RISK >11.0 HIGH RISK Performed By: #### T SH, LIPID, T7, CMP #### [facility] [address] [place] [address] Dr. Lisbeth Parks Cholesterol [Mass/Vol] 177 mg/dL Normal <=200 [facility] Comment on above: Performed By: #### T SH, LIPID, T7, CMP #### [facility] [address] [address] [address] Lisbeth Parks Cholesterol in HDL [Mass/Vol] 83 mg/dL Critically high 40-60 [facility] Comment on above: Performed By: #### T SH, LIPID, T7, CMP #### [facility] [address] [address] [address] Lisbeth Parks Cholesterol in LDL [Mass/Vol] 83.4 mg/dL Normal [facility] Comment on above: Performed By: #### T SH, LIPID, T7, CMP #### [facility] [address] [address] [address] Lisbeth Parks Cholesterol.total/Cho lesterol in HDL [Mass ratio] 2.1 {ratio} Normal [facility] Comment on above: Performed By: #### T SH, LIPID, T7, CMP #### [facility] [address] [address] [address] Lisbeth Parks HDL NORMAL > or = 60 mg/dl - LO W CARDIOVASCULAR RISK <40 mg/dl - HIGH CARDIOVASCULAR RISK Normal [facility] Comment on above: Performed By: #### T SH, LIPID, T7, CMP #### [facility] [address] [place] [address] Dr. Lisbeth Parks LDL CALC NORMAL SEE BELOW Normal [facility] Comment on above: Result Comment: <100 mg/dl OPTIMAL 100 - 129 mg/dl NEAR OR ABOVE OPTIMAL 130 - 159 mg/dl BORDERLINE HIGH 160 - 189 mg/dl HIGH >190 mg/dl VERY HIGH Performed By: #### T SH, LIPID, T7, CMP #### [facility] [address] [place] [address] Dr. Lisbeth Parks Triglyceride [Mass/Vol] 53 mg/dL Normal <=150 [facility] Comment on above: Performed By: #### T SH, LIPID, T7, CMP #### [facility] [address] [address] [address] Lisbeth Parks VLDL CALC 10.6 mg/dL Normal [facility] Comment on above: Performed By: #### T SH, LIPID, T7, CMP #### [facility] [address] [address] [address] Lisbeth Parks PROF 14(COMP METB)on 022 Albumin [Mass/Vol] 4.1 g/dL Normal 3.4-5.0 [facility] Comment on above: Performed By: #### T SH, LIPID, T7, CMP #### [facility] [address] [place] [address] Dr. Lisbeth Parks Albumin/Globulin [Mass ratio] 1.1 {ratio} Normal [facility] Comment on above: Performed By: #### T SH, LIPID, T7, CMP #### [facility] [address] [address] [address] Lisbeth Parks ALP [Catalytic activity/Vol] 72 U/L Normal 46-116 [facility] Comment on above: Performed By: #### T SH, LIPID, T7, CMP #### [facility] [address] [address] [address] Lisbeth Parks ALT [Catalytic activity/Vol] 19 U/L Normal 14-59 [facility] Comment on above: Performed By: #### T SH, LIPID, T7, CMP #### [facility] [address] [place] [address] Dr. Lisbeth Parks Anion gap [Moles/Vol] 8.7 mmol/L Normal [facility] Comment on above: Performed By: #### T SH, LIPID, T7, CMP #### [facility] [address] [place] [address] Dr. Lisbeth Parks AST [Catalytic activity/Vol] 18 U/L Normal 15-37 [facility] Comment on above: Performed By: #### T SH, LIPID, T7, CMP #### [facility] [address] [place] [address] Dr. Lisbeth Parks Bilirubin [Mass/Vol] 0.4 mg/dL Normal 0.2-1.0 [facility] Comment on above: Performed By: #### T SH, LIPID, T7, CMP #### [facility] [address] [place] [address] Dr. Lisbeth Parks Calcium [Mass/Vol] 9.3 mg/dL Normal 8.5-10.1 [facility] Comment on above: Performed By: #### T SH, LIPID, T7, CMP #### [facility] [address] [place] [address] Dr. Lisbeth Parks Chloride [Moles/Vol] 102 mmol/L Normal 98-107 [facility] Comment on above: Performed By: #### T SH, LIPID, T7, CMP #### [facility] [address] [place] [address] Dr. Lisbeth Parks CO2 [Moles/Vol] 31.9 mmol/L Normal 21.0-32.0 [facility] Comment on above: Performed By: #### T SH, LIPID, T7, CMP #### [facility] [address] [address] [address] Lisbeth Parks Creatinine [Mass/Vol] 0.87 mg/dL Normal 0.55-1.02 [facility] Comment on above: Performed By: #### T SH, LIPID, T7, CMP #### [facility] [address] [address] [address] Lisbeth Parks EGFR-AF NORWEGIAN >60 Normal >=60 [facility] Comment on above: Performed By: #### T SH, LIPID, T7, CMP #### [facility] [address] [place] [address] Dr. Lisbeth Parks EGFR-NON AF NORWEGIAN >60 Normal >=60 [facility] Comment on above: Performed By: #### T SH, LIPID, T7, CMP #### [facility] [address] [address] [address] Lisbeth Parks Globulin (S) [Mass/Vol] 3.7 g/dL Normal [facility] Comment on above: Performed By: #### T SH, LIPID, T7, CMP #### [facility] [address] [place] [address] Dr. Lisbeth Parks Glucose [Mass/Vol] 93 mg/dL Normal 74-106 [facility] Comment on above: Performed By: #### T SH, LIPID, T7, CMP #### [facility] [address] [address] [address] Lisbeth Parks Potassium [Moles/Vol] 4.6 mmol/L Normal 3.5-5.1 [facility] Comment on above: Performed By: #### T SH, LIPID, T7, CMP #### [facility] [address] [place] [address] Dr. Lisbeth Parks Protein [Mass/Vol] 7.8 g/dL Normal 6.4-8.2 [facility] Comment on above: Performed By: #### T SH, LIPID, T7, CMP #### [facility] [address] [place] [address] Dr. Lisbeth Parks Sodium [Moles/Vol] 138 mmol/L Normal 136-145 [facility] Comment on above: Performed By: #### T SH, LIPID, T7, CMP #### [facility] [address] [place] [address] Dr. Lisbeth Parks Urea nitrogen [Mass/Vol] 7.0 mg/dL Normal 7.0-18.0 [facility] Comment on above: Performed By: #### T SH, LIPID, T7, CMP #### [facility] [address] [place] [address] Dr. Lisbeth Parks Urea nitrogen/Creatinine [Mass ratio] 8.0 mg/mg Normal [facility] Comment on above: Performed By: #### T SH, LIPID, T7, CMP #### [facility] [address] [place] [address] Dr. Lisbeth Parks TSHon 04-27-2022 TSH 3.256 uIU/mL Normal 0.358-3.740 [facility] Comment on above: Performed By: #### T SH, LIPID, T7, CMP #### [facility] [address] [place] [address] Dr. Lisbeth Parks CBC AUTO DIFFon 05-18-2021 BASO # 0.0 103/ul Normal 0.0-0.1 [facility] Comment on above: Performed By: #### C BC #### [facility] [address] [place] [address] Ross Lisa Basophils/100 WBC (Bld) 0.5 % Normal 0.2-2.0 [facility] Comment on above: Performed By: #### C BC #### [facility] [address] [place] [address] Ross Lisa EO # 0.0 103/ul Normal 0.0-0.7 [facility] Comment on above: Performed By: #### C BC #### [facility] [address] [place] [address] Ross Lisa Eosinophils/100 WBC (Bld) 0.7 % Critically low 0.9-7.0 [facility] Comment on above: Performed By: #### C BC #### [facility] [address] [place] [address] Ross Gonzalez Erythrocyte distribution width (RBC) [Ratio] 13.2 % Normal 11.0-15.0 [facility] Comment on above: Performed By: #### C BC #### [facility] [address] [place] [address] Ross Gonzalez Hematocrit (Bld) [Volume fraction] 41.8 % Normal 36.0-48.0 [facility] Comment on above: Performed By: #### C BC #### [facility] [address] [place] [address] Ross Gonzalez Hemoglobin (Bld) [Mass/Vol] 13.6 g/dL Normal 12.0-16.0 [facility] Comment on above: Performed By: #### C BC #### [facility] [address] [place] [address] Rosschele Gonzalez IG # 0.01 10e3/ul Normal 0.00-0.03 [facility] Comment on above: Performed By: #### C BC #### [facility] [address] [place] [address] Rosschele Gonzalez IG % 0.2 % Normal 0.0-0.5 [facility] Comment on above: Performed By: #### C BC #### [facility] [address] [place] [address] Ross Lisa LYMPH # 1.4 103/ul Normal 1.2-3.8 [facility] Comment on above: Performed By: #### C BC #### [facility] [address] [place] [address] Ross Gonzalez Lymphocytes/100 WBC (Bld) 24.5 % Normal 20.5-60.0 [facility] Comment on above: Performed By: #### C BC #### [facility] [address] [place] [address] Ross Gonzalez MANUAL DIFF REQ NO Normal [facility] Comment on above: Performed By: #### C BC #### [facility] [address] [id number] Rosschele Gonzalez MCH (RBC) [Entitic mass] 30.4 pg Normal 26.7-34.0 [facility] Comment on above: Performed By: #### C BC #### [facility] [address] [place], [place] [id number] Rosschele Dollen MCHC (RBC) [Mass/Vol] 32.5 g/dL Normal 29.9-35.2 [facility] Comment on above: Performed By: #### C BC #### [facility] [address] [place], [place] [address] Ross Lisa MCV (RBC) [Entitic vol] 93.5 fL Normal 81.0-99.0 [facility] Comment on above: Performed By: #### C BC #### [facility] [address] [place], [place] [address] Ross Lisa MONO # 0.5 103/ul Normal 0.3-0.8 [facility] Comment on above: Performed By: #### C BC #### [facility] [address] [place], [place] [address] Ross Lisa Monocytes/100 WBC (Bld) 9.6 % Normal 1.7-12.0 [facility] Comment on above: Performed By: #### C BC #### [facility] [address] [place], [place] [address] Ross Lisa NEUT # 3.6 103/ul Normal 1.4-6.5 [facility] Comment on above: Performed By: #### C BC #### [facility] [address] [place], [place] [address] Ross Lisa Neutrophils/100 WBC (Bld) 64.5 % Normal 43.0-75.0 [facility] Comment on above: Performed By: #### C BC #### [facility] [address] [place], [place] [address] Ross Lisa Platelet mean volume (Bld) [Entitic vol] 9.7 fL Normal 9.5-13.5 [facility] Comment on above: Performed By: #### C BC #### [facility] [address] [place], [place] [address] Ross Lisa PLT 298 103/ul Normal 150-450 [facility] Comment on above: Performed By: #### C BC #### [facility] [address] [id number] Rosschele Dollen RBC 4.47 106/ul Normal 4.20-5.40 [facility] Comment on above: Performed By: #### C BC #### [facility] [address] [id number] Ross Lisa WBC 5.5 103/ul Normal 4.0-11.0 [facility] Comment on above: Performed By: #### C BC #### [facility] [address] [address] Ross Lisa [facility] ISLANDRENon 2020 SED RATE 9 mm/hr Normal <=30 [facility] Comment on above: Performed By: #### S EDR #### [facility] [address] [address] Ross Gonzalez URIC ACID SERUMon 05-18-2021 Urate [Mass/Vol] 5.0 mg/dL Normal 2.5-6.2 [facility] Comment on above: Performed By: #### T SH, LIPID, T7, CMP #### [facility] [address] [place], [place] [address] Dr. Lisbeth Parks Outside Colonoscopyon 2020 Outside Colonoscopy [id number]. 00CD:127 Normal [facility] Lab Reportson 04-12-2021 Lab Reports [id number]. 00CD:127 Normal [facility] Pre-Certification Formon Pre-Certification Form [id number] .00CD:127 Normal [facility] Consent for Procedure/Surger yon 03-30-2021 Consent for Procedure/Surgery [id number] .00CD:127 Normal [facility] Letter [facility] March 30, 2021 Sánchez Hosoto, [address] [place] [address] [place] [address] Re: JACINTA DHALIWAL Date of : 1965 Thank you for your referral of Jacinta Dhaliwal who was seen on consultation for screening colonoscopy. I have enclosed my consultation notes for your review and will be happy to follow Jacinta. Sincerely, Edvin Padgett MD General Surgery Normal [facility] Ambulatory Clinical Summaryo n 03-29-2021 Ambulatory Clinical Summary {[id number]}CD:[id number] Normal [facility] Patient Educationon 03-29-20 21 Patient [...] ? Medicines taken, including vitamins, herbs, eyedrops, vhld-yti-pdsomll medicines, and creams. ? Use of steroids [...] medicines have worn off. ? Only take lrpv-yvp-uririxn or prescription medicines for pain, discomfort, or [...] Document Reviewed: 05/27/2009 ExitCare? Patient Information ?2014 [employer] Radiology Colonoscopy, Adult, Care After This sheet [...] slower pace than normal. ? Eat soft, xntb-qv-xormfp foods. ? Take gyvh-rgk-vlhzfye or prescription medicines only as told by [...] your h (more content not included)... Normal [facility] Physician Referralon 021 Physician Referral [id number] .00CD:127 Normal [facility] Vital Signs Date Time Vital Sign Value Performing Clinician Facility 03-24-2023 09:15-0400 Body height 160.02 cm Paula Gruber Other [employer] Other 03-24-2023 09:15-0400 Body mass index (BMI) [Ratio] 20.69 kg/m2 Paula Gruber Other [employer] Other 03-24-2023 09:15-0400 Body temperature 98 [degF] Paula Gruber Other [employer] Other 03-24-2023 09:15-0400 Body weight 52.98 kg Paula Gruber Other [employer] Other 03-24-2023 09:15-0400 Respiratory rate 18 /min Paula Allyn Other [employer] Other 03-24-2023 09:15-0400 SaO2% (BldA) [Mass fraction] 98 % Paula Allyn Other [employer] Other 02-11-2023 10:05-0400 Body height 160.02 cm Paula Allyn Other [employer] Other 02-11-2023 10:05-0400 Body mass index (BMI) [Ratio] 20.9 kg/m2 Paula Allyn Other [employer] Other 02-11-2023 10:05-0400 Body temperature 98.6 [degF] Paula Allyn Other [employer] Other 02-11-2023 10:05-0400 Body weight 53.52 kg Paula Allyn Other [employer] Other 02-11-2023 10:05-0400 Respiratory rate 18 /min Paula Allyn Other [employer] Other 02-11-2023 10:05-0400 SaO2% (BldA) [Mass fraction] 99 % Paula Allyn Other [employer] Other Encounters Encounter Date Encounter Type Care Provider Facility Start: 03-24-2023 End: 03-24-2023 ambulatory Paula Gruber Other [employer] Other Start: 03-24-2023 Office outpatient vi sit 15 minutes Paula Gruber [facility] Start: 02-11-2023 End: 02-11-2023 ambulatory Paula Gruber Other [employer] Other Start: 02-11-2023 Office outpatient vi sit 15 minutes Paula Gruber [facility] Start: 05-08-2022 End: 05-09-[address] SÁNCHEZ CORDOBA Facility:[facility]1 Start: 05-04-2022 Encounter for genera l adult medical examination without abnormal findings DR SÁNCHEZ CORDOBA [facility] Start: 04-27-2022 End: 04-28-[address] SÁNCHEZ CORDOBA Facility:[facility] Start: 04-27-2022 End: 04-28-2022 Encounter for general adult medical examination without abnormal findings DR SÁNCHEZ CORDOBA Facility:[facility] Start: 05-18-2021 End: 05-19-[address] SÁNCHEZ CORDOBA Facility:[facility] Payers Date Payer Category Payer Unknown [id number] 1965 Unknown [id number] 1965 Unknown [id number] 1957 Unknown [id number] Social History Date Type Detail Facility Unknown if ever smoked [employer] Other Sex Assigned At Sex Assigned At Bir th [employer] Other Evaluation note 03-24-2023 Note Date & [...] if no improvement in 2 to 3-day [employer] Other Evaluation note 02-11-2023 Note Date & [...] days. Jan, Other Conjunctivitis material was printed [employer] Other Clinical Note 04-27-2022 Note Date & Type Note Facility 04-27-2022 Note PROCEDURE: XR SHOULD ER LT 2V or > COMPARISON: None. HISTORY: Impingement syndrome of shoulder region FINDINGS: BONES:No fracture, acute abnormality, or significant arthropathy. SOFT TISSUES:Negative. No visible soft tissue swelling. EFFUSION:None visible. OTHER: Negative. IMPRESSION: No acute abnormality Electronically authenticated by: KEVIN TA Date: 2022-04-27 17:20 [facility] Clinical Note 05-18-2021 Note Date & [...] by: KEVIN TA Date: 2021-05-18 13:48 [facility] Clinical Note 03-29-2021 Note Date & Type [...] Recorded SARS-CoV-2 (COVID-19) mRNA-1273 vaccine 12/22/2020 Recorded [facility] Comment on above: Result Comment: Elec tronically Signed By: JOHN UGARTE, Edvin Boo\Date and Time Signed: 03/29/21 13:57 EDT History general Narrative - Reported Note Date & Type Note Facility History general Narrative - Reported Type Medical History anxiety Medical History Arthritis [employer] Other Summary Purpose Family History No Family History Records FoundNo Family History Records Found Advance Directives No Advanced Directives Records FoundNo Advanced Directives Records Found Additional Source Comments INFORMATION SOURCE (unrecogn ized section and content) DATE CREATED AUTHOR 04/15/2021 [facility] DATE CREATED AUTHOR AUTHOR'S ORGANIZ ATION 05/17/2022 [...] BE BASED ON THE PRIMARY CLINICAL RECORDS. [employer] [facility]. provides no warranty or guarantee of the accuracy or completeness of information in this document.
[2024-06-03 08:13] LABS: Free T3 2.31 pg/mL (2.18-3.98); Thyroid Stimulating Hormone 3.694 uIU/mL (0.358-3.740)
== END 2024-06-03 07:23 | disposition home or self-care (01) ==
LOC: LAB 07:22
PROVIDERS: PCP Family Medicine; Visit Provider Family Medicine
DX: G47.00 Insomnia, unspecified (principal)
CPT/HCPCS: 36415; 84436; 84443; 84481

== ENCOUNTER 2024-08-20 15:50 | Outpatient (OUT) | payer OTHER, SELFPAY ==
[2024-08-20 16:06] LABS: Basophils Absolute Auto 0.1 10^3/uL (0.0-0.1); Basophils Percent Auto 0.8 % (0.2-2.0); Eosinophils Absolute Auto 0.2 10^3/uL (0.0-0.7); Eosinophils Percent Auto 2.7 % (0.9-7.0); Hematocrit 34.6 % (36.0-48.0); Hemoglobin 11.4 g/dL (12.0-16.0); Immature Granulocytes Abs Auto 0.01 10^3/uL (0.00-0.03); Immature Granulocytes Pct Auto 0.2 % (0.0-0.5); Lymphocytes Absolute Auto 1.9 10^3/uL (1.2-3.8); Lymphocytes Percent Auto 29.7 % (20.5-60.0); Mean Corpuscular HGB Conc 32.9 g/dL (29.9-35.2); Mean Corpuscular Hemoglobin 30.1 pg (26.7-34.0); Mean Corpuscular Volume 91.3 fL (81.0-99.0); Mean Platelet Volume 9.2 fL (9.5-13.5); Monocytes Absolute Auto 0.7 10^3/uL (0.3-0.8); Monocytes Percent Auto 10.4 % (1.7-12.0); Neutrophils Absolute Auto 3.5 10^3/uL (1.4-6.5); Neutrophils Percent Auto 56.2 % (43.0-75.0); Platelet Count 297 10^3/uL (150-450); Red Blood Count 3.79 10^6/uL (4.20-5.40); Red Cell Distribution Width 12.6 % (11.0-15.0); White Blood Count 6.2 10^3/uL (4.0-11.0)
--- OUTSIDE RECORDS SUMMARY | 2024-08-20 16:10 | XMS_ITS | CCD ---
Author Organization [facility] Care Team Providers Care Hot Dip Galvanizer Name Role Phone CHANTE, DR POZO Attending [...] Drug Class(es) Dates Sig (Normalized) Sig (Original) [id number] 200 actuat albuterol 0.09 mg/actuat metered dose [...] : DR SÁNCHEZ CORDOBA . Admission #: [id number] Family : Order #: [id number] CLICK HERE TO VIEW EXAM RADIOLOGY REPORT [...] lung cancer at age 72. LOCATION: [facility] BREAST COMPOSITION: Heterogeneously dense,which may [...] MD on 05/08/2022 at 09:04 Normal [facility] CBC AUTO DIFFon 04-27-2022 BASO # 0.0 103/ul Normal 0.0-0.1 [facility] Comment on above: Performed By: #### C BC #### [facility] [address] [place] [address] Dr. Lisbeth Parks Basophils/100 WBC (Bld) 0.9 % Normal 0.2-2.0 [facility] Comment on above: Performed By: #### C BC #### [facility] [address] [place] [address] Dr. Lisbeth Parks EO # 0.1 103/ul Normal 0.0-0.7 [facility] Comment on above: Performed By: #### C BC #### [facility] [address] [place] [address] Dr. Lisbeth Parks Eosinophils/100 WBC (Bld) 3.0 % Normal 0.9-7.0 [facility] Comment on above: Performed By: #### C BC #### [facility] [address] [place] [address] Dr. Lisbeth Parks Erythrocyte distribution width (RBC) [Ratio] 13.1 % Normal 11.0-15.0 [facility] Comment on above: Performed By: #### C BC #### [facility] [address] [place] [address] Dr. Lisbeth Parks Hematocrit (Bld) [Volume fraction] 41.5 % Normal 36.0-48.0 [facility] Comment on above: Performed By: #### C BC #### [facility] [address] [place] [address] Dr. Lisbeth Parks Hemoglobin (Bld) [Mass/Vol] 13.4 g/dL Normal 12.0-16.0 [facility] Comment on above: Performed By: #### C BC #### [facility] [address] [place] [address] Dr. Lisbeth Parks IG # 0.01 10e3/ul Normal 0.00-0.03 [facility] Comment on above: Performed By: #### C BC #### [facility] [address] [place] [address] Dr. Lisbeth Parks IG % 0.2 % Normal 0.0-0.5 [facility] Comment on above: Performed By: #### C BC #### [facility] [address] [place] [address] Dr. Lisbeth Parks LYMPH # 1.5 103/ul Normal 1.2-3.8 [facility] Comment on above: Performed By: #### C BC #### [facility] [address] [place] [address] Dr. Lisbeth Parks Lymphocytes/100 WBC (Bld) 34.4 % Normal 20.5-60.0 [facility] Comment on above: Performed By: #### C BC #### [facility] [address] [place] [address] Dr. Lisbeth Parks MANUAL DIFF REQ NO Normal [facility] Comment on above: Performed By: #### C BC #### [facility] [address] [place] [address] Dr. Lisbeth Parks MCH (RBC) [Entitic mass] 30.7 pg Normal 26.7-34.0 [facility] Comment on above: Performed By: #### C BC #### [facility] [address] [place] [address] Dr. Lisbeth Parks MCHC (RBC) [Mass/Vol] 32.3 g/dL Normal 29.9-35.2 [facility] Comment on above: Performed By: #### C BC #### [facility] [address] [place] [address] Dr. Lisbeth Parks MCV (RBC) [Entitic vol] 95.0 fL Normal 81.0-99.0 [facility] Comment on above: Performed By: #### C BC #### [facility] [address] [place] [address] Dr. Lisbeth Parks MONO # 0.4 103/ul Normal 0.3-0.8 [facility] Comment on above: Performed By: #### C BC #### [facility] [address] [place] [address] Dr. Lisbeth Parks Monocytes/100 WBC (Bld) 10.1 % Normal 1.7-12.0 [facility] Comment on above: Performed By: #### C BC #### [facility] [address] [place] [address] Dr. Lisbeth Parks NEUT # 2.2 103/ul Normal 1.4-6.5 [facility] Comment on above: Performed By: #### C BC #### [facility] [address] [place] [address] Dr. Lisbeth Parks Neutrophils/100 WBC (Bld) 51.4 % Normal 43.0-75.0 [facility] Comment on above: Performed By: #### C BC #### [facility] [address] [place] [address] Dr. Lisbeth Parks Platelet mean volume (Bld) [Entitic vol] 9.4 fL Critically low 9.5-13.5 [facility] Comment on above: Performed By: #### C BC #### [facility] [address] [place] [address] Dr. Lisbeth Parks PLT 363 103/ul Normal 150-450 [facility] Comment on above: Performed By: #### C BC #### [facility] [address] [place] [address] Dr. Lisbeth Parks RBC 4.37 106/ul Normal 4.20-5.40 [facility] Comment on above: Performed By: #### C BC #### [facility] [address] [place] [address] Dr. Lisbeth Parks WBC 4.3 103/ul Normal 4.0-11.0 [facility] Comment on above: Performed By: #### C BC #### [facility] [address] [place] [address] Dr. Lisbeth Parks FREE THYROXINE INDEX T7on FTI 2.53 Normal 1.30-4.50 [facility] Comment on above: Performed By: #### T SH, LIPID, T7, CMP #### [facility] [address] [place] [address] Dr. Lisbeth Parks T3U 32.0 % Normal 30.0-39.0 [facility] Comment on above: Performed By: #### T SH, LIPID, T7, CMP #### [facility] [address] [place] [address] Dr. Lisbeth Parks T4 [Mass/Vol] 7.90 ug/dL Normal 4.80-13.90 [facility] Comment on above: Performed By: #### T SH, LIPID, T7, CMP #### [facility] [address] [place] [address] Dr. Lisbeth Parks GLYCOHEMOGLOBIN A1Con 2021 ADA RECOMMENDATION SEE BELOW Normal [facility] Comment on above: Result Comment: ADA RECOMMENDED LIMIT 4.0 - 6.0 ADA THERAPEUTIC TARGET < 7.0 ACTION SUGGESTED > 7.0 Performed By: #### T SH, LIPID, T7, CMP #### [facility] [address] [address] [address] Lisbeth Parks Glucose [Mass/Vol] 120 mg/dL Normal [facility] Comment on above: Performed By: #### T SH, LIPID, T7, CMP #### [facility] [address] [address] [address] Lisbeth Parks HbA1c (Bld) [Mass fraction] 5.8 % Normal 4.5-6.2 [facility] Comment on above: Performed By: #### T SH, LIPID, T7, CMP #### [facility] [address] [address] [address] Lisbeth Parks IRONon 04-27-2022 Iron [Mass/Vol] 113.0 ug/dL Normal 50.0-170.0 [facility] Comment on above: Performed By: #### T SH, LIPID, T7, CMP #### [facility] [address] [place] [address] Dr. Lisbeth Parks LIPID PROFILEon 04-27-2022 CHOL-HDL RATIO NORM SEE BELOW Normal [facility] Comment on above: Result Comment: 3.3 - 4.4 LOW RISK 4.4 - 7.1 AVERAGE RISK 7.1 - 11.0 MODERATE RISK >11.0 HIGH RISK Performed By: #### T SH, LIPID, T7, CMP #### [facility] [address] [place] [address] Dr. Lisbeth Parks Cholesterol [Mass/Vol] 177 mg/dL Normal <=200 [facility] Comment on above: Performed By: #### T SH, LIPID, T7, CMP #### [facility] [address] [address] [address] Lisbeth Parks Cholesterol in HDL [Mass/Vol] 83 mg/dL Critically high 40-60 [facility] Comment on above: Performed By: #### T SH, LIPID, T7, CMP #### [facility] [address] [address] [address] Lisbeth Parks Cholesterol in LDL [Mass/Vol] 83.4 mg/dL Normal [facility] Comment on above: Performed By: #### T SH, LIPID, T7, CMP #### [facility] [address] [address] [address] Lisbeth Parks Cholesterol.total/Cho lesterol in HDL [Mass ratio] 2.1 {ratio} Normal [facility] Comment on above: Performed By: #### T SH, LIPID, T7, CMP #### [facility] [address] [address] [address] Lisbeth Parks HDL NORMAL > or = 60 mg/dl - LO W CARDIOVASCULAR RISK <40 mg/dl - HIGH CARDIOVASCULAR RISK Normal [facility] Comment on above: Performed By: #### T SH, LIPID, T7, CMP #### [facility] [address] [place] [address] Dr. Lisbeth Parks LDL CALC NORMAL SEE BELOW Normal [facility] Comment on above: Result Comment: <100 mg/dl OPTIMAL 100 - 129 mg/dl NEAR OR ABOVE OPTIMAL 130 - 159 mg/dl BORDERLINE HIGH 160 - 189 mg/dl HIGH >190 mg/dl VERY HIGH Performed By: #### T SH, LIPID, T7, CMP #### [facility] [address] [place] [address] Dr. Lisbeth Parks Triglyceride [Mass/Vol] 53 mg/dL Normal <=150 [facility] Comment on above: Performed By: #### T SH, LIPID, T7, CMP #### [facility] [address] [address] [address] Lisbeth Parks VLDL CALC 10.6 mg/dL Normal [facility] Comment on above: Performed By: #### T SH, LIPID, T7, CMP #### [facility] [address] [address] [address] Lisbeth Parks PROF 14(COMP METB)on 022 Albumin [Mass/Vol] 4.1 g/dL Normal 3.4-5.0 [facility] Comment on above: Performed By: #### T SH, LIPID, T7, CMP #### [facility] [address] [place] [address] Dr. Lisbeth Parks Albumin/Globulin [Mass ratio] 1.1 {ratio} Normal [facility] Comment on above: Performed By: #### T SH, LIPID, T7, CMP #### [facility] [address] [address] [address] Lisbeth Parks ALP [Catalytic activity/Vol] 72 U/L Normal 46-116 [facility] Comment on above: Performed By: #### T SH, LIPID, T7, CMP #### [facility] [address] [address] [address] Lisbeth Parks ALT [Catalytic activity/Vol] 19 U/L Normal 14-59 [facility] Comment on above: Performed By: #### T SH, LIPID, T7, CMP #### [facility] [address] [place] [address] Dr. Lisbeth Parks Anion gap [Moles/Vol] 8.7 mmol/L Normal [facility] Comment on above: Performed By: #### T SH, LIPID, T7, CMP #### [facility] [address] [place] [address] Dr. Lisbeth Parks AST [Catalytic activity/Vol] 18 U/L Normal 15-37 [facility] Comment on above: Performed By: #### T SH, LIPID, T7, CMP #### [facility] [address] [place] [address] Dr. Lisbeth Parks Bilirubin [Mass/Vol] 0.4 mg/dL Normal 0.2-1.0 [facility] Comment on above: Performed By: #### T SH, LIPID, T7, CMP #### [facility] [address] [place] [address] Dr. Lisbeth Parks Calcium [Mass/Vol] 9.3 mg/dL Normal 8.5-10.1 [facility] Comment on above: Performed By: #### T SH, LIPID, T7, CMP #### [facility] [address] [place] [address] Dr. Lisbeth Parks Chloride [Moles/Vol] 102 mmol/L Normal 98-107 [facility] Comment on above: Performed By: #### T SH, LIPID, T7, CMP #### [facility] [address] [place] [address] Dr. Lisbeth Parks CO2 [Moles/Vol] 31.9 mmol/L Normal 21.0-32.0 [facility] Comment on above: Performed By: #### T SH, LIPID, T7, CMP #### [facility] [address] [address] [address] Lisbeth Parks Creatinine [Mass/Vol] 0.87 mg/dL Normal 0.55-1.02 [facility] Comment on above: Performed By: #### T SH, LIPID, T7, CMP #### [facility] [address] [address] [address] Lisbeth Parks EGFR-AF MALAGASY >60 Normal >=60 [facility] Comment on above: Performed By: #### T SH, LIPID, T7, CMP #### [facility] [address] [place] [address] Dr. Lisbeth Parks EGFR-NON AF MALAGASY >60 Normal >=60 [facility] Comment on above: Performed By: #### T SH, LIPID, T7, CMP #### [facility] [address] [address] [address] Lisbeth Parks Globulin (S) [Mass/Vol] 3.7 g/dL Normal [facility] Comment on above: Performed By: #### T SH, LIPID, T7, CMP #### [facility] [address] [place] [address] Dr. Lisbeth Parks Glucose [Mass/Vol] 93 mg/dL Normal 74-106 [facility] Comment on above: Performed By: #### T SH, LIPID, T7, CMP #### [facility] [address] [address] [address] Lisbeth Parks Potassium [Moles/Vol] 4.6 mmol/L Normal 3.5-5.1 [facility] Comment on above: Performed By: #### T SH, LIPID, T7, CMP #### [facility] [address] [place] [address] Dr. Lisbeth Parks Protein [Mass/Vol] 7.8 g/dL Normal 6.4-8.2 [facility] Comment on above: Performed By: #### T SH, LIPID, T7, CMP #### [facility] [address] [place] [address] Dr. Lisbeth Parks Sodium [Moles/Vol] 138 mmol/L Normal 136-145 [facility] Comment on above: Performed By: #### T SH, LIPID, T7, CMP #### [facility] [address] [place] [address] Dr. Lisbeth Parks Urea nitrogen [Mass/Vol] 7.0 mg/dL Normal 7.0-18.0 [facility] Comment on above: Performed By: #### T SH, LIPID, T7, CMP #### [facility] [address] [place] [address] Dr. Lisbeth Parks Urea nitrogen/Creatinine [Mass ratio] 8.0 mg/mg Normal [facility] Comment on above: Performed By: #### T SH, LIPID, T7, CMP #### [facility] [address] [place] [address] Dr. Lisbeth Parks TSHon 04-27-2022 TSH 3.256 uIU/mL Normal 0.358-3.740 [facility] Comment on above: Performed By: #### T SH, LIPID, T7, CMP #### [facility] [address] [place] [address] Dr. Lisbeth Parks CBC AUTO DIFFon 05-18-2021 BASO # 0.0 103/ul Normal 0.0-0.1 [facility] Comment on above: Performed By: #### C BC #### [facility] [address] [place] [address] Ross Lisa Basophils/100 WBC (Bld) 0.5 % Normal 0.2-2.0 [facility] Comment on above: Performed By: #### C BC #### [facility] [address] [place] [address] Ross Lisa EO # 0.0 103/ul Normal 0.0-0.7 [facility] Comment on above: Performed By: #### C BC #### [facility] [address] [place] [address] Ross Lisa Eosinophils/100 WBC (Bld) 0.7 % Critically low 0.9-7.0 [facility] Comment on above: Performed By: #### C BC #### [facility] [address] [place] [address] Ross Gonzalez Erythrocyte distribution width (RBC) [Ratio] 13.2 % Normal 11.0-15.0 [facility] Comment on above: Performed By: #### C BC #### [facility] [address] [place] [address] Ross Gonzalez Hematocrit (Bld) [Volume fraction] 41.8 % Normal 36.0-48.0 [facility] Comment on above: Performed By: #### C BC #### [facility] [address] [place] [address] Ross Gonzalez Hemoglobin (Bld) [Mass/Vol] 13.6 g/dL Normal 12.0-16.0 [facility] Comment on above: Performed By: #### C BC #### [facility] [address] [place] [address] Rosschele Gonzalez IG # 0.01 10e3/ul Normal 0.00-0.03 [facility] Comment on above: Performed By: #### C BC #### [facility] [address] [place] [address] Rosschele Gonzalez IG % 0.2 % Normal 0.0-0.5 [facility] Comment on above: Performed By: #### C BC #### [facility] [address] [place] [address] Ross Lisa LYMPH # 1.4 103/ul Normal 1.2-3.8 [facility] Comment on above: Performed By: #### C BC #### [facility] [address] [place] [address] Ross Gonzalez Lymphocytes/100 WBC (Bld) 24.5 % Normal 20.5-60.0 [facility] Comment on above: Performed By: #### C BC #### [facility] [address] [place] [address] Ross Gonzalez MANUAL DIFF REQ NO Normal [facility] Comment on above: Performed By: #### C BC #### [facility] [address] [id number] Rosschele Gonzalez MCH (RBC) [Entitic mass] 30.4 pg Normal 26.7-34.0 [facility] Comment on above: Performed By: #### C BC #### [facility] [address] [place], [place] [id number] Rosschele Dollen MCHC (RBC) [Mass/Vol] 32.5 g/dL Normal 29.9-35.2 [facility] Comment on above: Performed By: #### C BC #### [facility] [address] [place], [place] [id number] Ross Lisa MCV (RBC) [Entitic vol] 93.5 fL Normal 81.0-99.0 [facility] Comment on above: Performed By: #### C BC #### [facility] [address] [place], [place] [id number] Ross Lisa MONO # 0.5 103/ul Normal 0.3-0.8 [facility] Comment on above: Performed By: #### C BC #### [facility] [address] [place], [place] [id number] Ross Lisa Monocytes/100 WBC (Bld) 9.6 % Normal 1.7-12.0 [facility] Comment on above: Performed By: #### C BC #### [facility] [address] [place], [place] [id number] Ross Lisa NEUT # 3.6 103/ul Normal 1.4-6.5 [facility] Comment on above: Performed By: #### C BC #### [facility] [address] [place], [place] [id number] Ross Lisa Neutrophils/100 WBC (Bld) 64.5 % Normal 43.0-75.0 [facility] Comment on above: Performed By: #### C BC #### [facility] [address] [place], [place] [id number] Ross Lisa Platelet mean volume (Bld) [Entitic vol] 9.7 fL Normal 9.5-13.5 [facility] Comment on above: Performed By: #### C BC #### [facility] [address] [place], [place] [address] Ross Lisa PLT 298 103/ul Normal 150-450 [facility] Comment on above: Performed By: #### C BC #### [facility] [address] [id number] Rosschele Dollen RBC 4.47 106/ul Normal 4.20-5.40 [facility] Comment on above: Performed By: #### C BC #### [facility] [address] [id number] Ross Lisa WBC 5.5 103/ul Normal 4.0-11.0 [facility] Comment on above: Performed By: #### C BC #### [facility] [address] [address] Ross Lisa [facility] 9 mm/hr Normal <=30 [facility] Comment on above: Performed By: #### S EDR #### [facility] [address] [address] Ross Gonzalez URIC ACID SERUMon 05-18-2021 Urate [Mass/Vol] 5.0 mg/dL Normal 2.5-6.2 [facility] Comment on above: Performed By: #### T SH, LIPID, T7, CMP #### [facility] [address] [place], [place] [address] Dr. Lisbeth Parks Outside Colonoscopyon 2020 Outside Colonoscopy [id number]. 00CD:127 Normal [facility] Lab Reportson 04-12-2021 Lab Reports [id number]. 00CD:127 Normal [facility] Pre-Certification Formon Pre-Certification Form [id number] .00CD:127 Normal [facility] Consent for Procedure/Surger yon 03-30-2021 Consent for Procedure/Surgery [id number] .[id number]:127 Normal [facility] Letter [facility] March 30, 2021 Sánchez Hosoto, [address] [facility] [place] [place] [address] Re: JACINTA DHALIWAL Date of : 1965 Thank you for your referral of Jacinta Dhaliwal who was seen on consultation for screening colonoscopy. I have enclosed my consultation notes for your review and will be happy to follow Jacinta. Sincerely, Edvin Padgett MD General Surgery Normal [facility] Ambulatory Clinical Summaryo n 03-29-2021 Ambulatory Clinical Summary {[id number]}CD:[id number] Normal [facility] Patient Educationon 03-29-20 21 Patient Education Colonoscopy [...] ? Medicines taken, including vitamins, herbs, eyedrops, xhtx-akr-ahdjmlq medicines, and creams. ? Use of steroids [...] medicines have worn off. ? Only take eajv-ykf-lxqeqfy or prescription medicines for pain, discomfort, or [...] Document Reviewed: 05/27/2009 ExitCare? Patient Information ?2014 [employer], [employer]. Radiology Colonoscopy, Adult, Care After This sheet [...] slower pace than normal. ? Eat soft, tzbw-ax-qprsai foods. ? Take gcxn-ida-avyggft or prescription medicines only as told by [...] your h (more content not included)... Normal [facility] Physician Referralon 021 Physician Referral [id number] .[id number]:127 Normal [facility] Vital Signs Date Time Vital Sign Value Performing Clinician Facility 03-24-2023 09:15-0400 Body height 160.02 cm Paula Gruber Other [facility] Other 03-24-2023 09:15-0400 Body mass index (BMI) [Ratio] 20.69 kg/m2 Paula Gruber Other [facility] Other 03-24-2023 09:15-0400 Body temperature 98 [degF] Paula Gruber Other [facility] Other 03-24-2023 09:15-0400 Body weight 52.98 kg Paula Gruber Other [facility] Other 03-24-2023 09:15-0400 Respiratory rate 18 /min Paula Allyn Other [facility] Other 03-24-2023 09:15-0400 SaO2% (BldA) [Mass fraction] 98 % Paula Allyn Other [facility] Other 02-11-2023 10:05-0400 Body height 160.02 cm Paula Allyn Other [facility] Other 02-11-2023 10:05-0400 Body mass index (BMI) [Ratio] 20.9 kg/m2 Paula Allyn Other [facility] Other 02-11-2023 10:05-0400 Body temperature 98.6 [degF] Paula Allyn Other [facility] Other 02-11-2023 10:05-0400 Body weight 53.52 kg Paula Allyn Other [facility] Other 02-11-2023 10:05-0400 Respiratory rate 18 /min Paula Allyn Other [facility] Other 02-11-2023 10:05-0400 SaO2% (BldA) [Mass fraction] 99 % Paula Allyn Other [facility] Other Encounters Encounter Date Encounter Type Care Provider Facility Start: 03-24-2023 End: 03-24-2023 ambulatory Paula Gruber Other [facility] Other Start: 03-24-2023 Office outpatient vi sit 15 minutes Paula Gruber [employer] [facility] Start: 02-11-2023 End: 02-11-2023 ambulatory Paula Gruber Other [facility] Other Start: 02-11-2023 Office outpatient vi sit 15 minutes Paula Gruber [facility] Start: 05-08-2022 End: 05-09-[address] SÁNCHEZ CORDOBA Facility:[facility] Start: 05-04-2022 Encounter for genera l adult medical examination without abnormal findings DR SÁNCHEZ CORDOBA [facility] Start: 04-27-2022 End: 04-28-[address] SÁNCHEZ CORDOBA Facility:[facility] Start: 04-27-2022 End: 04-28-2022 Encounter for general adult medical examination without abnormal findings DR SÁNCHEZ CORDOBA Facility:[facility] Start: 05-18-2021 End: 05-19-[address] SÁNCHEZ CORDOBA Facility:[facility] Payers Date Payer Category Payer Unknown [id number] 1965 Unknown [id number] 1965 Unknown [id number] 1957 Unknown [id number] Social History Date Type Detail Facility Unknown if ever smoked [facility] Other Sex Assigned At Sex Assigned At Bir th [facility] Other Evaluation note 03-24-2023 Note Date & [...] if no improvement in 2 to 3-day [facility] Other Evaluation note 02-11-2023 Note Date & [...] days. Jan, Other Conjunctivitis material was printed [facility] Other Clinical Note 04-27-2022 Note Date & Type Note Facility 04-27-2022 Note PROCEDURE: XR SHOULD ER LT 2V or > COMPARISON: None. HISTORY: Impingement syndrome of shoulder region FINDINGS: BONES:No fracture, acute abnormality, or significant arthropathy. SOFT TISSUES:Negative. No visible soft tissue swelling. EFFUSION:None visible. OTHER: Negative. IMPRESSION: No acute abnormality Electronically authenticated by: KEVIN TA Date: 2022-04-27 17:20 [facility] Clinical Note 05-18-2021 Note Date & Type [...] by: KEVIN TA Date: 2021-05-18 13:48 [facility] Clinical Note 03-29-2021 Note Date [...] Recorded SARS-CoV-2 (COVID-19) mRNA-1273 vaccine 12/22/2020 Recorded [facility] [place] Comment on above: Result Comment: Elec tronically Signed By: JOHN UGARTE, Edvin Boo\Date and Time Signed: 03/29/21 13:57 EDT History general Narrative - Reported Note Date & Type Note Facility History general Narrative - Reported Type Medical History anxiety Medical History Arthritis [facility] Other Summary Purpose Family History No Family History Records FoundNo Family History Records Found Advance Directives No Advanced Directives Records FoundNo Advanced Directives Records Found Additional Source Comments INFORMATION SOURCE (unrecogn ized section and content) DATE CREATED AUTHOR 04/15/2021 [facility] DATE CREATED AUTHOR AUTHOR'S ORGANIZ ATION 05/17/2022 [...] BE BASED ON THE PRIMARY CLINICAL RECORDS. [employer] [facility]. provides no warranty or guarantee of the accuracy or completeness of information in this document.
[2024-08-20 16:28] LABS: Alanine Aminotransferase 12 U/L (14-59); Albumin Level 3.5 g/dL (3.4-5.0); Alkaline Phosphatase 64 U/L (46-116); Anion Gap 10.6; Aspartate Amino Transferase 18 U/L (15-37); BUN Creatinine Ratio 13.6; Bilirubin Total 0.3 mg/dL (0.2-1.0); Calcium 10.1 mg/dL (8.5-10.1); Carbon Dioxide 31.3 mmol/L (21.0-32.0); Chloride 101 mmol/L (98-107); Estimated GFR (African America 57 (>=60 mL/min/1.73m^2); Estimated GFR (Non-African Ame 47 (>=60 mL/min/1.73m^2); Globulin 3.5 g/dL; Glucose 89 mg/dL (74-106); Potassium 3.9 mmol/L (3.5-5.1); Sodium 139 mmol/L (136-145)
== END 2024-08-20 15:51 | disposition home or self-care (01) ==
LOC: LAB 15:50
PROVIDERS: PCP Family Medicine; Visit Provider Internal Medicine Rheumatology
DX: M19.90 Unspecified osteoarthritis, unspecified site (principal); Z51.81 Encounter for therapeutic drug level monitoring
CPT/HCPCS: 36415; 80053; 85025

== ENCOUNTER 2025-04-02 09:23 | Outpatient (OUT) | payer OTHER, SELFPAY ==
--- OUTSIDE RECORDS SUMMARY | 2024-06-03 11:26 | XMS_ITS ---
Author Organization The [facility] in [place] Address [address] [place] [address] Care Team Providers Care Street Commissioner Name Role Phone Aidan Cordoba Primary Care Provider REASON FOR VISIT Thyroid results Encounters Encounter Location Date Provider Diagnosis [facility] [address] [place] [address] 06/03/2024 Aidan Cordoba Plan Of Treatment No Information Progress Notes * Jacinta HERNÁNDEZ KDOB:[birth year] (58 yo F)Acc No.[id number]:06/03/2024 Patient: Princess CEDENO Jacinta Heck :1965 A ge:58 Y S ex:Female Address:[address] [place] [address] [address], [place] [address] * true * Date: Generated for Kayla heart/Gildardo/eTransmitting on: 0 04/02/2025 09:27 AM EDT
--- OUTSIDE RECORDS SUMMARY | 2024-08-20 14:58 | XMS_ITS ---
Author Organization The [facility] in [place] Address [address] [place] [address] Care Team Providers Care Hand Worker Name Role Phone Aidan Cordoba Primary Care Provider [phone] REASON FOR VISIT Lab Results- Medications Medication SIG (Take, Route, Frequency, Duration) Notes Start Date End Date Status Valium 5 MG 1 tablet as needed Orally once about 1 hour before procedure for 1 days F41.9 05/20/2024 Active SEROquel 25 MG 1 tablet at bedtime Orally Once a day for 30 days 11/27/2023 Active tiZANidine HCl 4 MG 1 tablet Orally Q HS for 3 days 10/11/2023 Active Nabumetone 500 MG 1 tablet Orally Twic e a day Active Naltrexone HCl (Pain) 4.5 MG as directed Orally Active Meloxicam 15 MG 1 tablet Orally Once a day Active Escitalopram Oxalate 20 MG 1 tablet Oral ly Once a day for 90 days 05/07/2023 Active Gabapentin 100 MG take 1 capsule by [facility] three times a day for 30 Active Plaquenil Active ALPRAZolam 0.5 MG 1 tablet Orally TID - as needed PRN 11/27/2023 Active Encounters Encounter Location Date Provider Diagnosis [facility] [address] [place] [address] 08/20/2024 Aidan Cordoba Plan Of Treatment No Information Progress Notes * Jacinta HERNÁNDEZ KDOB:[birth year] (58 yo F)Acc No.[id number]:08/20/2024 Patient: Jacinta HOOK :1965 A ge:58 Y S ex:Female Address:[address] [place] [id number] Subjective: * Chief Complaints: * L ab Results- * Medical History: * Surgical History: * Hospitalization/Major Diagno stic Procedure: * Medications: T akingALPRAZolam 0.5 MG Tablet 1 tablet Orally TID - as needed , Notes to Pharmacist: PRNEscitalopram Oxalate 20 MG Tablet 1 tablet Orally Once a day Gabapentin 100 MG Capsule take 1 capsule by mouth three times a day Meloxicam 15 MG Tablet 1 tablet Orally Once a day Nabumetone 500 MG Tablet 1 tablet Orally Twice a day Naltrexone HCl (Pain) 4.5 MG Capsule as directed Orally Plaquenil SEROquel(QUEtiapine Fumarate) 25 MG Tablet 1 tablet at bedtime Orally Once a day tiZANidine HCl 4 MG Tablet 1 tablet Orally Q HS Valium(diazePAM) 5 MG Tablet 1 tablet as needed Orally once about 1 hour before procedure F41.9Medication List reviewed and reconciled with the patientTaking ALPRAZolam 0.5 MG Tablet 1 tablet Orally TID - as needed , Notes to Pharmacist: PRNTaking Escitalopram Oxalate 20 MG Tablet 1 tablet Orally Once a day Taking Gabapentin 100 MG Capsule take 1 capsule by mouth three times a day Taking Meloxicam 15 MG Tablet 1 tablet Orally Once a day Taking Nabumetone 500 MG Tablet 1 tablet Orally Twice a day Taking Naltrexone HCl (Pain) 4.5 MG Capsule as directed Orally Taking Plaquenil Taking SEROquel(QUEtiapine Fumarate) 25 MG Tablet 1 tablet at bedtime Orally Once a day Taking tiZANidine HCl 4 MG Tablet 1 tablet Orally Q HS Taking Valium(diazePAM) 5 MG Tablet 1 tablet as needed Orally once about 1 hour before procedure F41.9Medication List reviewed and reconciled with the patient Objective: * Vitals: * Physical Examination: Assessment: Plan: * Treatment: * Procedure Codes: * true * Date: Generated for Kayla heart/Gildardo/Francis on: 0 04/02/2025 09:28 AM EDT
--- OUTSIDE RECORDS SUMMARY | 2025-04-02 05:00 | XMS_ITS ---
Author Organization [facility] [place] Address [address] [place] [address] Care Team Providers Care Maintenance Engineer Name Role Phone Aidan Cordoba Primary Care Provider Paula Ravi [phone] Allergies No Known Allergies REASON FOR VISIT annual-needed early time this week- pt Medications Medication SIG (Take, Route, Frequency, Duration) Notes Start Date End Date Status Nabumetone 500 MG 1 tablet Orally Twic e a day Not-Taking Meloxicam 15 MG 1 tablet Orally Once a day Active tiZANidine HCl 4 MG 1 tablet Orally Q HS for 3 days 10/11/2023 Active Plaquenil Active Naltrexone HCl (Pain) 4.5 MG as directed Orally Active ALPRAZolam 0.5 MG 1 tablet Orally TID - as needed PRN 11/27/2023 Not-Taking Escitalopram Oxalate 20 MG 1 tablet Orally Once a day for 90 days Active Social History Tobacco Use: Social History Observation Description Date Details (start date - stop date) Never Smoker NA - NA Tobacco Use/Smoking Question Answer Notes Patient is a nonsmoker AUDIT-C (Standard) Question Answer Notes Did you have a drink containing alcohol in the p ast year? No Points 0 Interpretation Negative Vital Signs Blood pressure systolic 112 mm Hg 04/02/20 25 Blood pressure diastolic 68 mm Hg 025 Height 63 in 04/02/2025 Weight 120 lbs 04/02/2025 BMI 21.25 kg/m2 04/02/2025 Encounters Encounter Location Date Provider Diagnosis [facility] [address] [place] [address] 04/02/2025 Paula Ravi Wellness examination Z00.00 and Anxiety disorder, unspecified F41.9 Assessments Encounter Date Diagnosis (ICD Code) Assessment Notes Treatment Notes Treatment Clinical Notes Section Notes 04/02/2025 Wellness examination (ICD-10 - Z00.00) ROS done exam done getting mamms and paps colonoscopy due 31 04/02/2025 Anxiety disorder, unspecified (ICD-10 - F41.9) Plan Of Treatment Medication Medication Name Sig Start Date Stop Date Notes Escitalopram Oxalate 20 MG 1 tablet Oral ly Once a day for 90 days Treatment Notes Assessment Notes Wellness examination ROS done exam done getting mamms and paps colonoscopy due 31 Pending Test Test Name Order Date HEMOGLOBIN A1C (GLYCO) 04/02/2025 IRON, TOTAL 04/02/2025 LIPID PANEL (CHOL/TRIG/HDL/LDL) 04/02/20 25 VITAMIN D, 25 LEVEL (TOTAL) 04/02/2025 Insulin Level 04/02/2025 THYROID PANEL (T4/TSH/FREE T3) 5 CMP (COMP MET DUNN) w/eGFR CKD-EPI 2024 CBC WITH DIFF 04/02/2025 Next Appt Details Follow Up: prn,1 Year, Reaso n: Progress Notes * BETTY, Jacinta KDOB:[birth year] (59 yo F)Acc No.[id number]:04/02/2025 UNLOCKED PROGRESS NOTE Progress Note Patient: Jacinta HOOK Provider: Seth Ravi ([facility]), ATTORNEY GENERAL :1965 A ge:59 Y S ex:Female Date:04/02/2025 Address:[address] [place], [place] [id number] Pcp:Aidan Cordoba Check In:08:51 AM ESTCheck O ut:09:12 AM EST Subjective: * Chief Complaints: * 1 . Annual-needed early time this week- pt. * HPI: D epression Screening: PHQ-2 (2015 Edition) L ittle interest or pleasure in doing things??Not at all F eeling down, depressed, or hopeless? N ot at all T otal Score 0 G eneral: anxiety ok with meds paps and mammograms colonoscopy last 2020 Dr Leon for rheum fibro and arthritic pain now under control walking for exercise no concerns today 11 grands. * ROS: G eneral/Constitutional: Fever d enies. H eadache d enies. W eight loss?denies. O phthalmologic: Discharge d enies. E ye Pain d enies. I tching and redness d enies. E NT: Nasal discharge d enies. N ladonna congestion d enies.?Sore throat d enies. C ardiovascular: Chest tightness/ heavy pressure d enies. R apid heart rate d enies. S welling of extremities d enies. C hest pain d enies. ? R espiratory: Productive cough d enies. C hest pain d enies. C ough d enies. S hortness of breath d enies. W heezing d enies. ? G astrointestinal: Abdominal pain d enies. C onstipation d enies. D ecreased appetite d enies. D iarrhea d enies. N ausea d enies. V omiting?denies. G enitourinary: Urinary incontinence d enies. P ainful urination d enies. M usculoskeletal: Back pain d enies. N evelin pain d enies. M uscle aches d enies. S kin: Rash d enies. S kin lesion(s) d enies. ? * Medical History: S wollen joints, Red warm joint, Problems with dry eyes, Anxiety. * Surgical History: d enies . * Hospitalization/Major Diagno stic Procedure: d enies . * Family History: F ather: , lung cancer, diagnosed with Other malignant neoplasm of unspecified site.?Mother: alive, osteoporosis. B rother(s): alive. S ister(s): alive. S on(s): alive. Daughter(s): alive. 2 brother(s) , 1 sister(s) - healthy. 1 son(s) , 4 daughter(s) - healthy. . * Social History: T obacco Use: T obacco Use/Smoking P atient is a n onsmoker D rug/Alcohol: A YAW-C (Standard) D id you have a drink containing alcohol in the past year? N o P oints 0 I nterpretation N egative * Medications: T aking Escitalopram Oxalate 20 MG Tablet 1 tablet Orally Once a day , Taking Meloxicam 15 MG Tablet 1 tablet Orally Once a day , Taking Naltrexone HCl (Pain) 4.5 MG Capsule as directed Orally , Taking Plaquenil , Taking tiZANidine HCl 4 MG Tablet 1 tablet Orally Q HS , Not-Taking/PRN ALPRAZolam 0.5 MG Tablet 1 tablet Orally TID - as needed , Notes to Pharmacist: PRN, Not-Taking/PRN Nabumetone 500 MG Tablet 1 tablet Orally Twice a day , Medication List reviewed and reconciled with the patient * Allergies: N .K.D.A. Objective: * Vitals: W t:120lbs, Ht: 63 in, BP:112/68mm Hg, BMI:21.25Index, Wt-k.43 kg. * Examination: G eneral Examinations: GENERAL APPEARANCE: a lert and oriented, i n no acute distress. EYES: conjunctiva normal, sclera non-icteric. ENT: n ormal TMs. NOSE: n ormal external appearance. LYMPH NODES: normal, no cervical, axillary, or inguinal adenopathy. LUNGS: c lear to auscultation bilaterally. CARDIO: regular rate and rhythm, S1, S2 normal. ABDOMEN: s oft, nontender. MUSCULOSKELETAL: G ait and station normal. SKIN: warm and dry. Assessment: * Assessment: 1. W ellness examination - Z00.00 (Primary) 2 . A nxiety disorder, unspecified - F41.9 Plan: * Treatment: 2. A nxiety disorder, unspecified Refill Escitalopram Oxalate Tablet, 20 MG, 1 tablet, Orally, Once a day, 90 days, 90 Tablet, Refills 3. * Follow Up: p silvia,1 Year * * Electronic signature of Jessica Dick NP, [employer] TECHNICIAN.ATTORNEY [id number] on 04/02/2025 at 09:28 AM EDT Sign off status: Pending Visit Status: C HK (Check Out) * Provider: Seth Ravi ([facility]), ATTORNEY GENERAL Date: 0 04/02/2025 Generated for Kayla heart/Gildardo/eTransmitting on: 0 04/02/2025 09:28 AM EDT History and Physical Notes * HPI (History of Present Illness) Category Sub-Category Detail Notes Category Not es General anxiety ok with meds paps and mammograms colonoscopy last 2020 Dr Leon for rheum fibro and arthritic pain now under control walking for exercise no concerns today 11 grands Depression Screening PHQ-2 (2015 Edition) Little interest or pleasure in doing things?: Not at all Feeling down, depressed, or hopeless?: N ot at all Total Score: 0 Examination Category Sub-Category Detail Notes Category Not es General Examinations GENERAL APPEARANCE: alert a nd oriented, in no acute distress EYES: conjunctiva normal, sclera non-icteric NOSE: normal external appe arance THROAT: CARDIO: regular rate and rhy thm, S1, S2 normal LUNGS: clear to auscultatio n bilaterally ABDOMEN: soft, nontender SKIN: warm and dry BACK: MUSCULOSKELETAL: Gait and station nor mal LYMPH NODES: normal, no cervical, axillary, or inguinal adenopathy ENT: normal TMs
--- OUTSIDE RECORDS SUMMARY | 2025-04-02 09:28 | XMS_ITS | Patient Health Record ---
Author Organization [facility] in [place] Address [address] [place] [address] Care Team Providers Care Calender Supervisor Name Role Phone Aidan Sharif Primary Care Provider [phone] Paula Ravi Unavailable [phone] Allergies No Known Allergies Results Component Value Reference Range Notes CBC AUTO DIFF Reviewed date:04/28/2024 09:15:04 PM Interpretation: Performing Lab: Notes/Report: [facility] , White Blood Count 7.0 4.0-11.0 10 3/uL Red Blood Count 4.58 4.20-5.40 10 6/uL Hemoglobin 13.8 12.0-16.0 g/dL Hematocrit 42.6 36.0-48.0 % Mean Corpuscular Volume 93.0 81.0-99.0 fL Mean Corpuscular Hemoglobin 30.1 26.7-34.0 pg Mean Corpuscular HGB Conc 32.4 29.9-35.2 g/dL Red Cell Distribution Width 13.2 11.0-15.0 % Platelet Count 437 150-450 10 3/uL Mean Platelet Volume 9.5 9.5-13.5 fL Neutrophils Percent Auto 47.0 43.0-75.0 % Lymphocytes Percent Auto 41.5 20.5-60.0 % Monocytes Percent Auto 9.1 1.7-12.0 % Eosinophils Percent Auto 1.1 0.9-7.0 % Basophils Percent Auto 0.9 0.2-2.0 % Immature Granulocytes Pct Auto 0.4 0.0-0.5 % Neutrophils Absolute Auto 3.3 1.4-6.5 10 3/uL Lymphocytes Absolute Auto 2.9 1.2-3.8 10 3/uL Monocytes Absolute Auto 0.6 0.3-0.8 10 3/uL Eosinophils Absolute Auto 0.1 0.0-0.7 10 3/uL Basophils Absolute Auto 0.1 0.0-0.1 10 3/uL Immature Granulocytes Abs Auto 0.03 0.00-0.03 10 3/uL Performing Lab: see note ML - [facility] GLYCOHEMOGLOBIN A1C Reviewed date:04/28/2024 09:15:04 PM Interpretation: Performing Lab: Notes/Report: [facility] , Glycohemoglobin A1C 5.4 4.5-6.2 % ADA RECOMMENDED LIMIT 4.0 - 6.0 ADA THERAPEUTIC TARGET < 7.0 ACTION SUGGESTED > 7.0 Estimated Average Glucose 108 Performing Lab: see note ML - [facility] LIPID PROFILE Reviewed date:04/28/2024 09:15:04 PM Interpretation: Performing Lab: Notes/Report: [facility] , Triglycerides 102 <=150 mg/dL Cholesterol 215 <=200 mg/dL HDL Cholesterol 86 40-60 mg/dL > or =60 mg/dl - LOW CARDIOVASCULAR RISK <40 mg/dl - HIGH CARDIOVASCULAR RISK LDL Cholesterol Calculated 109.0 <100 mg/dl OPTIMAL 100-129 mg/dl NEAR OR ABOVE OPTIMAL 130-159 mg/dl BORDERLINE HIGH 160-189 mg/dl HIGH >190 mg/dl VERY HIGH VLDL CHOLESTEROL 20.4 Chol HDL Ratio 2.5 3.3 - 4.4 LOW RISK 4.4 - 7.1 AVERAGE RISK 7.1 - 11.0 MODERATE RISK >11.0 HIGH RISK Performing Lab: see note - [facility] PROF 14(COMP METB) Reviewed date:04/28/2024 09:15:04 PM Interpretation: Performing Lab: Notes/Report: [facility] , Sodium 139 136-145 mmol/L Potassium 3.8 3.5-5.1 mmol/L Chloride 100 98-107 mmol/L Carbon Dioxide 30.9 21.0-32.0 mmol/L Anion Gap 11.9 Glucose 94 74-106 mg/dL Blood Urea Nitrogen 12.0 7.0-18.0 mg/dL Creatinine 0.84 0.55-1.02 mg/dL Estimated GFR ( Alaina >60 >=60 Estimated GFR (Non- Martita >60 >=60 BUN Creatinine Ratio 14.3 Calcium 9.4 8.5-10.1 mg/dL Bilirubin Total 0.5 0.2-1.0 mg/dL Aspartate Amino Transferase 19 15-37 U/L Alanine Aminotransferase 21 14-59 U/L Alkaline Phosphatase 78 46-116 U/L Total Protein 8.1 6.4-8.2 g/dL Albumin Level 4.0 3.4-5.0 g/dL Globulin 4.1 Albumin Globulin Ratio 1.0 Performing Lab: see note ML - [facility] FREE T4 Reviewed date:04/28/2024 09:15:04 PM Interpretation: Performing Lab: Notes/Report: [facility] , Free T4 1.07 0.76-1.46 ng/dL Performing Lab: see note ML - [facility] LB TSH Reviewed date:04/28/2024 09:15:04 PM Interpretation: Performing Lab: Notes/Report: [facility] , Thyroid Stimulating Hormone 3.829 0.358-3.740 uIU/mL Performing Lab: see note ML - [facility] LB MM tomosynthesis screening B I Reviewed date:05/21/2024 09:19:50 PM Interpretation: Performing Lab: Notes/Report: Source Facility: [facility]-[address] [place] [address] [place] [address] Mammography Report Signed Patient: JACINTA HERNÁNDEZ MR#: [id number] : 1965 Acct:[id number] Age/Sex: 58 / F ADM Date: 05/21/24 Loc: MAMMO Attending Dr: Sánchez Sharif M.D. Ordering Physician: Sánchez Sharif M.D. Results: Date of Service: 05/21/24 Follow Up: Procedure(s): MM tomosynthesis screening BI Accession Number(s): [id number] cc: Sánchez Sharif M.D. Patient Name: JACINTA HERNÁNDEZ MR#: [id number] : 1965 Exam Date: 05/21/2024 Ordering Doctor: DR Sánchez Sharif . RADIOLOGY REPORT PROCEDURE: MM TOMOSYNTHESIS SCREENING BI COMPARISON: MG MAMM SCREEN 3D BUFFY CAD, 05/08/2022. MG MAMM BUFFY DIAG W CAD, 08/12/2020. INDICATIONS: Screening Calculator Name NCI Breast Cancer Risk Assessment Tool 5 Year Breast Cancer Risk 1.10% Lifetime Breast Cancer Risk 7.20% Personal Breast Cancer No Personal Ovarian Cancer No Treatments None Family Cancers Father with lung cancer at age 70. LOCATION: [facility] BREAST COMPOSITION: The breasts are heterogeneously dense,which may obscure small masses. FINDINGS: DIAGNOSTIC CATEGORY 1--NEGATIVE. NO CHANGE FROM COMPARISON ASSESSMENT. RIGHT BREAST: No significant suspicious finding. LEFT BREAST: No significant suspicious finding. Focal asymmetry upper outer quadrant in the axillary tail, stable RECOMMENDATIONS: ROUTINE MAMMOGRAM AND CLINICAL EVALUATION IN 12 MONTHS. PLEASE NOTE: A NORMAL MAMMOGRAM DOES NOT EXCLUDE THE POSSIBILITY OF BREAST CANCER. A CLINICALLY SUSPICIOUS PALPABLE LUMP SHOULD BE BIOPSIED. Dictated by: Eliel Christiansen MD on 05/21/2024 at 10:29 Approved by: Eliel Christiansen MD on 05/21/2024 at 10:30 Dictated By: Eliel Christiansen M.D. Signed By: 05/21/24 1031 DD/ 1030 TD/TT: Machine Tool Technician Instructor: [place] [address] Mammography Report Signed Patient: HAYLEE HERNÁNDEZ MR#: [id number] : 1965 Acct:[id number] Age/Sex: 58 / F ADM Date: 05/21/24 Loc: MAMMO Attending Dr: Katy Sharif M.D. Ordering Physician: Sánchez Sharif M.D. Results: Date of Service: 05/21/24 Follow Up: Procedure(s): MM tomosynthesis screening BI Accession Number(s): [id number] cc: Sánchez Sharif M.D. Patient Name: JACINTA HERNÁNDEZ MR#: [id number] : 1965 Exam Date: 05/21/2024 Ordering Doctor: DR Sánchez Sharif . RADIOLOGY REPORT PROCEDURE: MM TOMOSYNTHESIS SCREENING BI COMPARISON: MG MAMM SCREEN 3D BUFFY CAD, 05/08/2022. MG MAMM BUFFY DIAG W CAD, 08/12/2020. INDICATIONS: Screening Calculator Name NCI Breast Cancer Risk Assessment Tool 5 Year Breast Cancer Risk 1.10% Lifetime Breast Canc er Risk 7.20% Personal Breast Canc er No Personal Ovarian Can cer No Treatments None Family Cancers Fathe r with lung cancer at age 70. LOCATION: [facility] BREAST COMPOSITION: The breasts are heterogeneously dense,which may obscure small masses. FINDINGS: DIAGNOSTIC CATEGORY 1--NEGATIVE. NO CHANGE FROM COMPARISON ASSESSMENT. RIGHT BREAST: No significant suspicious finding. LEFT BREAST: No significant suspicious finding. Focal asymmetry upper outer quadrant in the axillary tail, stable RECOMMENDATIONS: ROUTINE MAMMOGRAM AN D CLINICAL EVALUATION IN 12 MONTHS. PLEASE NOTE: A REJI L MAMMOGRAM DOES NOT EXCLUDE THE POSSIBILITY OF BREAST CANCER. A CLINICALLY SUSPICIOUS PALPABLE LUMP SHOULD BE BIOPSIED. Dictated by: Eliel Christiansen MD on 05/21/2024 at 10:29 Approved by: Eliel Christiansen MD on 05/21/2024 at 10:30 Dictated By: Ruel Christiansen M.D. Signed By: 05/21/24 1031 DD/ 1030 TD/TT: Machine Tool Technician Instructor: CBC AUTO DIFF Reviewed date:08/20/2024 06:59:24 PM Interpretation: Performing Lab: Notes/Report: [facility] , White Blood Count 6.2 4.0-11.0 10 3/uL Red Blood Count 3.79 4.20-5.40 10 6/uL Hemoglobin 11.4 12.0-16.0 g/dL Hematocrit 34.6 36.0-48.0 % Mean Corpuscular Volume 91.3 81.0-99.0 fL Mean Corpuscular Hemoglobin 30.1 26.7-34.0 pg Mean Corpuscular HGB Conc 32.9 29.9-35.2 g/dL Red Cell Distribution Width 12.6 11.0-15.0 % Platelet Count 297 150-450 10 3/uL Mean Platelet Volume 9.2 9.5-13.5 fL Neutrophils Percent Auto 56.2 43.0-75.0 % Lymphocytes Percent Auto 29.7 20.5-60.0 % Monocytes Percent Auto 10.4 1.7-12.0 % Eosinophils Percent Auto 2.7 0.9-7.0 % Basophils Percent Auto 0.8 0.2-2.0 % Immature Granulocytes Pct Auto 0.2 0.0-0.5 % Neutrophils Absolute Auto 3.5 1.4-6.5 10 3/uL Lymphocytes Absolute Auto 1.9 1.2-3.8 10 3/uL Monocytes Absolute Auto 0.7 0.3-0.8 10 3/uL Eosinophils Absolute Auto 0.2 0.0-0.7 10 3/uL Basophils Absolute Auto 0.1 0.0-0.1 10 3/uL Immature Granulocytes Abs Auto 0.01 0.00-0.03 10 3/uL Performing Lab: see note ML - [facility] PROF 14(COMP METB) Reviewed date:08/20/2024 06:59:24 PM Interpretation: Performing Lab: Notes/Report: [facility] , Sodium 139 136-145 mmol/L Potassium 3.9 3.5-5.1 mmol/L Chloride 101 98-107 mmol/L Carbon Dioxide 31.3 21.0-32.0 mmol/L Anion Gap 10.6 Glucose 89 74-106 mg/dL Blood Urea Nitrogen 16.0 7.0-18.0 mg/dL Creatinine 1.18 0.55-1.02 mg/dL Estimated GFR ( Alaina 57 >=60 mL/min/1.73m 2 Estimated GFR (Non- Martita 47 >=60 mL/min/1.73m 2 BUN Creatinine Ratio 13.6 Calcium 10.1 8.5-10.1 mg/dL Bilirubin Total 0.3 0.2-1.0 mg/dL Aspartate Amino Transferase 18 15-37 U/L Alanine Aminotransferase 12 14-59 U/L Alkaline Phosphatase 64 46-116 U/L Total Protein 7.0 6.4-8.2 g/dL Albumin Level 3.5 3.4-5.0 g/dL Globulin 3.5 Albumin Globulin Ratio 1.0 Performing Lab: see note ML - [facility] FREE T3 Reviewed date:06/03/2024 03:27:08 PM Interpretation: Performing Lab: Notes/Report: [facility] , Free T3 2.31 2.18-3.98 pg/mL Performing Lab: see note ML - [facility] MR head/brain wo/w con Reviewed date:05/26/2024 08:42:39 PM Interpretation: Performing Lab: Notes/Report: Source Facility: [place] [address] Magnetic Resonance Report Signed Patient: JACINTA HERNÁNDEZ MR#: [id number] : 1965 Acct:[id number] Age/Sex: 58 / F ADM Date: 05/26/24 Loc: MRI Attending Dr: Sánchez Sharif M.D. Ordering Physician: Sánchez Sharif M.D. Date of Service: 05/26/24 Procedure(s): MR head/brain wo/w con Accession Number(s): [id number] cc: Sánchez Sharif M.D. [place] [address] Patient Name: JACINTA HERNÁNDEZ MRN: [id number] date: 1965 Sex: F Assigned Patient Location: MRI Current Patient Location: MRI Accession/Order Number: [id number] Exam Date: 05/26/2024 06:50 Report Date: 05/26/2024 13:44 At the request of: SÁNCHEZ SHARIF Procedure: MR head/brain wo/w con EXAMINATION: MR head/brain wo/w con HISTORY: M79.7 Fibromyalgia COMPARISON: No relevant comparison available. TECHNIQUE: A variety of imaging planes and parameters were utilized for visualization of suspected pathology. Images were performed without and with Dotarem contrast. FINDINGS: CEREBRUM: No edema, hemorrhage, mass, acute infarction, or inappropriate atrophy. CEREBELLUM: No edema, hemorrhage, mass, acute infarction, or inappropriate atrophy. BRAINSTEM: No edema, hemorrhage, mass, acute infarction, or inappropriate atrophy. CSF SPACES: Ventricles, cisterns, and sulci are appropriate for age. No hydrocephalus, subarachnoid hemorrhage, or mass. SKULL: No mass or other significant visible lesion. SINUSES: Limited views demonstrate no significant mucosal thickening or fluid. ORBITS: Limited views are unremarkable. OTHER: No abnormal meningeal or parenchymal enhancement. MR/MR head/brain wo/w con IMPRESSION: 1. No suspicious findings to account for patient's symptoms. Electronically authenticated by: MAX LEZAMA Date: 05/26/2024 13:44 Dictated By: Max Lezama M.D. Signed By: 05/26/24 1347 DD/ 43 TD/TT: Machine Tool Technician Instructor: [place] [address] Magnetic Resonance Report Signed Patient: HAYLEE HERNÁNDEZ MR#: [id number] : 1965 Acct:[id number] Age/Sex: 58 / F ADM Date: 05/26/24 Loc: MRI Attending Dr: Katy Sharif M.D. Ordering Physician: Sánchez Sharif M.D. Date of Service: 05/26/24 Procedure(s): MR head/brain wo/w con Accession Number(s): [id number] cc: Sánchez Sharif M.D. [place] [address] Patient Name: JACINTA HERNÁNDEZ MRN: [id number] date: 1965 Sex: F Assigned Patient Location: MRI Current Patient Location: MRI Accession/Order Numb er: [id number] Exam Date: 05/26/2024 06:50 Report Date: 05/26/2024 13:44 At the request of: SÁNCHEZ SHARIF Procedure: MR head/brain wo/w con EXAMINATION: MR head/brain wo/w con HISTORY: M79.7 Fibromyalgia COMPARISON: No relev ant comparison available. TECHNIQUE: A variety of imaging planes and parameters were utilized for visualization of suspected pathology. Images were performed without and with Dotarem contrast. FINDINGS: CEREBRUM: No edema, hemorrhage, mass, acute infarction, or inappropriate atrophy. CEREBELLUM: No edema , hemorrhage, mass, acute infarction, or inappropriate atrophy. BRAINSTEM: No edema, hemorrhage, mass, acute infarction, or inappropriate atrophy. CSF SPACES: Ventricl es, cisterns, and sulci are appropriate for age. No hydrocephalus, subarachnoid hemorrhage, or mass. SKULL: No mass or ot her significant visible lesion. SINUSES: Limited vie ws demonstrate no significant mucosal thickening or fluid. ORBITS: Limited view s are unremarkable. OTHER: No abnormal meningeal or parenchymal enhancement. MR/MR head/brain wo/w con IMPRESSION: 1. No suspicious findings to account for patient's symptoms. Electronically authenticated by: MAX LEZAMA Date: 05/26/2024 13:44 Dictated By: Max Lezama M.D. Signed By: 05/26/247 DD/ 43 TD/TT: Machine Tool Technician Instructor: TSH Reviewed date:06/03/2024 03:27:08 PM Interpretation: Performing Lab: Notes/Report: [facility] , Thyroid Stimulating Hormone 3.694 0.358-3.740 uIU/mL Performing Lab: see note ML - [facility] LB T4 Reviewed date:06/03/2024 03:27:08 PM Interpretation: Performing Lab: Notes/Report: [facility] , T4 Thyroxine 7.20 4.80-13.90 ug/dL Performing Lab: see note ML - [facility] LB Reason For Referral No Information Medications Medication SIG (Take, Route, Frequency, Duration) Notes Start Date End Date Status ALPRAZolam 0.5 MG 1 tablet Orally TID - as needed PRN 11/27/2023 Not-Taking Escitalopram Oxalate 20 MG 1 tablet Orally Once a day for 90 days Active Nabumetone 500 MG 1 tablet Orally Twic e a day Not-Taking Meloxicam 15 MG 1 tablet Orally Once a day Active tiZANidine HCl 4 MG 1 tablet Orally Q HS for 3 days 10/11/2023 Active Plaquenil Active Naltrexone HCl (Pain) 4.5 MG as directed Orally Active Social History Tobacco Use: Social History Observation Description Date Details (start date - stop date) Never Smoker NA - NA Tobacco Use/Smoking Question Answer Notes Patient is a nonsmoker AUDIT-C (Standard) Question Answer Notes Did you have a drink containing alcohol in the p ast year? 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) Active confirmed Problem 885905065 Bilateral primar y osteoarthritis of knee (M17.0) Active confirmed Problem 0792320 Unspecified osteoarthritis, unspecified site (M19.90) Active confirmed Problem 148950171 Spondylosis without myelopathy or radiculopathy, cervical region (M47.812) Active confirmed Problem 030975686 Unspecified thoracic, thoracolumbar and lumbosacral intervertebral disc disorder (M51.9) Active confirmed Problem Fibromyalgia (786014821) Fibromyalgia (M79.7) Active confirmed Problem Arthralgia (M25.50) Active confirmed Problem 36520345985151071 Carpal tunnel syndrome, bilateral upper limbs (G56.03) Active confirmed Vital Signs Blood pressure diastolic 68 mm Hg 04/02/2025 Height 63 in 04/02/2025 Blood pressure systolic 112 mm Hg 04/02/2025 Weight 120 lbs 04/02/2025 BMI 21.25 kg/m2 04/02/2025 Encounters Encounter Location Date Provider Diagnosis [facility] [address] [place] [address] 05/26/[address] [facility] [address] [place] [address] 06/03/[address] [facility] [address] [place] [address] 08/20/[address] [facility] [address] [facility] [place] [address] [facility] [address] [place] [address] 05/20/2024 Aidan Sharif Insomnia, unspecifie d G47.00 [facility] [address] [place] [address] 05/21/[address] [facility] [address] [place] [address] 04/02/2025 Paulabrea Ravi Wellness examination Z00.00 and Anxiety disorder, unspecified F41.9 [facility] [address] [place] [address] 04/28/2024 Aidan Sharif Fibromyalgia M79.7 a nd Well adult Z00.00 Assessments Encounter Date Diagnosis (ICD Code) Assessment Notes Treatment Notes Treatment Clinical Notes Section Notes 04/28/2024 Fibromyalgia (ICD-10 - M79.7) + diffuse pain 0 now with double vision - consistent symoptosm with MS - needs MRi brainwith and without 04/28/2024 Well adult (ICD-10 - Z00.00) 04/02/2025 Wellness examination (ICD-10 - Z00.00) ROS done exam done getting mamms and paps colonoscopy due 31 05/20/2024 Insomnia, unspecified (ICD-10 - G47.00) 04/02/2025 Anxiety disorder, unspecified (ICD-10 - F41.9) Plan Of Treatment Pending Test Test Name Order Date CMP (COMPLETE METABOLIC PANEL) 3 HEMOGLOBIN A1C (GLYCO) 05/10/2023 HEMOGLOBIN A1C (GLYCO) 04/02/2025 IRON, TOTAL 04/02/2025 IRON, TOTAL 05/10/2023 LIPID PANEL (CHOL/TRIG/HDL/LDL) 04/02/20 25 LIPID PANEL (CHOL/TRIG/HDL/LDL) 05/10/20 CBC WITH DIFF 05/10/2023 VITAMIN D, 25 LEVEL (TOTAL) 04/02/2025 VITAMIN D, 25 LEVEL (TOTAL) 05/10/2023 XR Hand RT (2 views) 08/22/2023 RHEUMATOID PANEL 08/09/2023 Insulin Level 05/10/2023 Insulin Level 04/02/2025 STOOL OCCULT BLOOD 05/10/2023 THYROID PROFILE WITH TSH 08/09/2023 THYROID PROFILE WITH TSH 04/28/2024 MRI BRAIN WO W CON 04/28/2024 THYROID PANEL (T4/TSH/FREE T3) 4 THYROID PANEL (T4/TSH/FREE T3) 3 THYROID PANEL (T4/TSH/FREE T3) 5 XR HIP LT 2 3V W PELVIS 08/09/2023 CMP (COMP MET DUNN) w/eGFR CKD-EPI 2024 CBC WITH DIFF 04/02/2025 Insurance Providers Payer Name Payer Address Payer Phone Subscriber Number Group Number Insured Name Patient Relationship to Insured Coverage Start Date Coverage End Date FRONTPATH [address] KAROLYN SNYDER [id number] Jacinta Hernández Self - patient is the insured Medical (General) History Medical History History ICD Code swollen joints red warm joint problems with dry eyes anxiety Surgical History Surgery Date(Month/Year) denies Hospitalization History Reason Date(Month/Year) denies
--- OUTSIDE RECORDS SUMMARY | 2025-04-02 09:28 | XMS_ITS | Continuity of Care Document ---
Author Organization [place] [facility], [facility] Address [address] [place] [address] Care Team Providers Care Net Developer Programmer Name Role Phone JUDI LEON Referring Provider SÁNCHEZ SHARIF Primary Care Provider Assessment No assessment recorded. Plan of Treatment Reminders Order Date Submit Date Provider Last Modified By Organization Details Last Modified Time Details Appointments None recorded . Lab CBC w/ auto diff 025 03/31/20 25 [email or web address] 31 [facility], [address] [place], [address], 5 08:42:50 CMP, serum or plasma 025 03/31/20 25 [email or web address] 31 [facility], [address] [place], [address], 5 08:42:50 Referral None recorded . Procedures None recorded . Surgeries None recorded . Imaging None recorded . Medication Orders None recorded . Patient TargetsNo targets recorded. Patient InstructionsNo instructions recorded. Reason for Referral None Reported. Problems Name Problem SNOMED Code Status Onset Date Resolution Date Notes Provider Name and Address Organization Details Recorded Time Fibromyalgia 420962726 Active 2024 MADIE anne, [place] [facility] 5 08:53:10 Pain of ear 832590852 Active 2024 Jayde Aguilera MD [address], [place], [address], [place] [facility] 5 07:27:32 Problem Notes None recorded. Procedures Surgical History Date Name Laterality Status Provider Name and Address Organization Details Recorded Time no surgical history completed MADIE [place] - [facility] 11/21/2024 08:46:10 Imaging Results None recorded. Procedure Notes None recorded. Medical Equipment None Reported. Allergies No known drug allergies Medications Name Sig Start Date Stop Date Status Note LastModified by Organization Details LastModified Time quetiapine 25 mg tablet take 1 tablet by mouth at bedtime 11/21 completed Not Available Not Available Not Available cyclobenzap rine 10 mg tablet Take 1 tablet three times daily as directed 2024 active Not Available Not Available Not Avai lable tizanidine 2 mg tablet take 1 tablet by mouth at bedtime 11/21 completed Not Available Not Available Not Available tizanidine 4 mg tablet TAKE 1 TO 2 TABLETS BY MOUTH AT BEDTIME active Not Available Not Available No t Available meloxicam 15 mg tablet TAKE 1 TABLET BY MOUTH DAILY active Not Available Not Available No t Available methylpredn isolone 4 mg tablet Take 3 tablets every day by oral route with meal(s) for 7 days. 2024 active Not Available Not Available Not Avai lable alprazolam 0.5 mg tablet take 1 tablet by mouth three times a day if needed 11/21 completed Not Available Not Available Not Available amoxicillin 875 mg tablet Take 1 tablet twice a day by oral route for 10 days. 2024 active Not Available Not Available Not Avai lable omeprazole 20 mg capsule,del ayed release TAKE 1 CAPSULE BY MOUTH DAILY 11/21 completed Not Available Not Available Not Available hydroxychlo roquine 200 mg tablet TAKE 1 TABLET BY MOUTH DAILY active Not Available Not Available No t Available methylpredn isolone 4 mg tablets in a dose pack TAKE BY MOUTH DIRECTED ON PACKAGE 11/21 completed Not Available Not Available Not Available diazepam 5 mg tablet take 1 tablet by mouth 1 HOUR PRIOR TO PROCEDURE NEEDED 11/21 completed Not Available Not Available Not Available nabumetone 500 mg tablet take 1 tablet by mouth twice a day 11/21 completed Not Available Not Available Not Available escitalopra m 10 mg tablet take 1 tablet by mouth once daily 11/21 completed Not Available Not Available Not Available escitalopra m 20 mg tablet TAKE 1 TABLET BY MOUTH ONCE DAILY active Not Available Not Available No t Available Capsule #3 capsule active Not Available Not Available Not Available naltrexone 4.5 mg capsule active Not Available Not Available Not Available Vitals None Recorded Social History Question Answer Notes LastModified by Organizat ion Details LastModified Time Tobacco Smoking Status Never Smoker MADIE anne, [place] - [facility] 11/21/2024 08:46:10 What Is Your Level Of Caffeine Consumption? Heavy [email or web address] Information not available 11/21/2024 How Much Tobacco Do You Chew? None [email or web address] Information not available 11/21/2024 What Is The Highest Grade Or Level Of School You Have Completed Or The Highest Degree You Have Received? [id number] [email or web address] Information not available 11/21/2024 Cigar Smoking No [email or web address] Information not available 11/21/2024 Does Anyone Insult Or Talk Down To You? Never [email or web address] Information not available 11/21/2024 Does Anyone Physically Hurt You At Home? Never [email or web address] Information not available 11/21/2024 Does Anyone Scream Or Curse At You? Never [email or web address] Information not available 11/21/2024 Does Anyone Threaten/bully You With Harm? Never [email or web address] Information not available 11/21/2024 Lives With [place] [email or web address] Information no t available 11/21/2024 Sleep Habits Great! [email or web address] Information not available 11/21/2024 Have You Ever Served In The ? No Information not available 11/21/2024 What Was The Date Of Your Most Recent Tobacco Screening? 11/21/2024 Information not available 11/21/2024 What Is Your Relationship Status? [email or web address] Information not available 11/21/2024 Has Tobacco Cessation Counseling Been Provided? Yes [email or web address] Information not available 11/21/2024 On What Date Was Tobacco Cessation Counseling Provided? 11/21/2024 [email or web address] Information not available 11/21/2024 Sex: Unknown Functional Status Question Answer Note LastModified by Organizat ion Details LastModified Time Do you or have you ever used any other forms of tobacco or nicotine? No [email or web address] Information not available 11/21/2024 Do you or have you ever used smokeless tobacco? 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 Family History Relationship Description Onset Age of this Age Resolved Age Notes LastModified by Organization Details LastModified Time Father Malignant neoplasm of lung [email or web address] Not available 11/21 08:46:09 Medical History Condition Response Fibromyalgia Y Gynecological HistoryNo gynecological history recorded. Obstetrics History GPAL:G 0 P 0 0 0 0 Immunizations Vaccine Type Date Status Note Provider Nam e and Address Organization Details Recorded Time COVID-19, mRNA, LNP-S, PF, 100 mcg/0.5mL dose or 50 mcg/0.25mL dose 12/22/2020 completed MADIE anne [facility] 11/21/2024 08:44:58 COVID-19, mRNA, LNP-S, PF, 100 mcg/0.5mL dose or 50 mcg/0.25mL dose 01/21/2021 completed MADIE anne [facility] 11/21/2024 08:44:58 Influenza, high-dose, trivalent, PF 09/12/2017 completed MADIE anne [facility] 11/21/2024 08:44:58 Past Encounters Encounter ID Performer Location Encounter Start Date Encounter Closed Date Diagnosis/Indication Diagnosis SNOMED-CT Code Diagnosis ICD10 Code Diagnosis Note [id number] [place] [facility] [address] [place] [address] 03/31/2025 10:46:08 03/31/2025 10:58:04 Osteoarthritis 942042793 M15.0 Patient presents today for blood test noted below ordered by: Dr. Judi Leon Procedure explained and patient verbalized understand ing of the procedure and labs to be drawn today. Venipunctu re performed using aseptic technique in the side of right antecubita l. Venipunctu re successful on the first attempt without complicati ons. If complicati ons: Dressing applied to the site(s) and pressure held. No signs or symptoms of venipunctu re complicati ons observed. Lab results sent to Ordering Provider. Patient left ambulatory with no complaints of pain or discomfort voiced. Health Concerns Section Related Observation LastModified by Organization Detai ls LastModified Time None Recorded Concern Status LastModified by Organization Details LastModified Time None Recorded Payers Encounter Date Sequence Insurance Name Policy Number Policy Padron Covered Member ID Padron Member ID Guarantor Name 03/31/2025 1 [facility] [id number] Jacinta Dhaliwal [id number] Jaicnta Dhaliwal OBGyn Episode No OBEpisode recorded.
--- OUTSIDE RECORDS SUMMARY | 2025-04-02 09:28 | XMS_ITS | Data Portability ---
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 Plan of Treatment Reminders Order Date Submit Date Provider Last Modified By Organization Details Last Modified Time Details Appointments None recorded. Lab CBC w/ auto diff 2024 025 [email or web address], [address] [place], [address], 5 08:42:50 CMP, serum or plasma 2024 025 [email or web address] ([facility], [address] [place], [address], 5 08:42:50 Referral None recorded. Procedures None recorded. Surgeries None recorded. Imaging None recorded. Medication Orders amoxicillin 875 mg tablet 2024 025 [facility], [address] [place], [address], 5 15:37:19 cyclobenzap rine 10 mg tablet 2024 025 [facility], [address], [place], [place], [id number], 5 09:32:16 methylpredn isolone 4 mg tablet 2024 025 [facility], [address], [place], [place], [id number], 09:32:16 Patient TargetsNo targets recorded. Patient InstructionsNo instructions recorded. Reason for Referral None Reported. Results Created Date Observation Date Name Description Value Unit Range Abnormal Flag Note LastModifiedBy Organization Detail LastModifiedTime 03/31/2004/01/2025 CBC WITH DIFFE RENTI AL/PL ATELE T WBC 4.6 x10e3 /uL 3.4-10 .8 normal Not Available [facility] ([facility]) [address] [place], [address], 04/01/2025 05:11:54 03/31/2004/01/2025 CBC WITH DIFFE RENTI AL/PL ATELE T RBC 4.58 x10e6 /uL 3.77-5 .28 normal Not Available [facility] ([facility]) [address] [place], [address], 04/01/2025 05:11:54 03/31/20 25 04/01/2025 CBC WITH DIFFE RENTI AL/PL ATELE T hemoglobin 13.9 g/dL 11.1-1 5.9 normal Not Available [facility] ([facility]) [address] [place], [address], 04/01/2025 05:11:54 03/31/2004/01/2025 CBC WITH DIFFE RENTI AL/PL ATELE T hematocrit 42.5 % 34.0-4 6.6 normal Not Available [facility] ([facility]) [address] [place], [address], 04/01/2025 05:11:54 03/31/20 25 04/01/2025 CBC WITH DIFFE RENTI AL/PL ATELE T MCV 93 fL 79-97 normal Not Available [facility] ([facility]) [address] [place], [address], 04/01/2025 05:11:54 03/31/20 25 04/01/2025 CBC WITH DIFFE RENTI AL/PL ATELE T MCH 30.3 pg 26.6-3 3.0 normal Not Available [facility] ([facility]) [address] [place], [address], 04/01/2025 05:11:54 03/31/20 25 04/01/2025 CBC WITH DIFFE RENTI AL/PL ATELE T MCHC 32.7 g/dL 31.5-3 5.7 normal Not Available [facility] ([facility]) [address] [place], [address], 04/01/2025 05:11:54 03/31/20 25 04/01/2025 CBC WITH DIFFE RENTI AL/PL ATELE T RDW 12.2 % 11.7-1 5.4 Not Available [facility] ([facility]) [address] [place], [address], 04/01/2025 05:11:54 03/31/20 25 04/01/2025 CBC WITH DIFFE RENTI AL/PL ATELE T platelets 336 x10e3 /uL 150-45 0 normal Not Available [facility] ([facility]) [address] [place], [address], 04/01/2025 05:11:54 03/31/20 25 04/01/2025 CBC WITH DIFFE RENTI AL/PL ATELE T neutrophils 57 % not estab. normal Not Available [facility] ([facility]) [address] [place], [address], 04/01/2025 05:11:54 03/31/20 25 04/01/2025 CBC WITH DIFFE RENTI AL/PL ATELE T lymphs 32 % not estab. normal Not Available [facility] ([facility]) [address] [place], [address], 04/01/2025 05:11:54 03/31/20 25 04/01/2025 CBC WITH DIFFE RENTI AL/PL ATELE T monocytes 8 % not estab. normal Not Available [facility] ([facility]) [address] [place], [address], 04/01/2025 05:11:54 03/31/20 25 04/01/2025 CBC WITH DIFFE RENTI AL/PL ATELE T eos 2 % not estab. normal Not Available [facility] ([facility]) [address] [place], [address], 04/01/2025 05:11:54 03/31/20 25 04/01/2025 CBC WITH DIFFE RENTI AL/PL ATELE T basos 1 % not estab. normal Not Available [facility] ([facility]) [address] [place], [address], 04/01/2025 05:11:54 03/31/20 25 04/01/2025 CBC WITH DIFFE RENTI AL/PL ATELE T immature cells INTERNET CONSULTANT Not Available [facility] ([facility]) [address] [place], [address], 04/01/2025 05:11:54 03/31/20 25 04/01/2025 CBC WITH DIFFE RENTI AL/PL ATELE T neutrophils (absolute) 2.6 x10e3 /uL 1.4-7. 0 normal Not Available [facility] ([facility]) [address] [place], [address], 04/01/2025 05:11:54 03/31/20 25 04/01/2025 CBC WITH DIFFE RENTI AL/PL ATELE T lymphs (absolute) 1.5 x10e3 /uL 0.7-3. 1 normal Not Available [facility] ([facility]) [address] [place], [address], 04/01/2025 05:11:54 03/31/20 25 04/01/2025 CBC WITH DIFFE RENTI AL/PL ATELE T monocytes(ab solute) 0.4 x10e3 /uL 0.1-0. 9 normal Not Available [facility] ([facility]) [address] [facility], [place], [address], 04/01/2025 05:11:54 03/31/20 25 04/01/2025 CBC WITH DIFFE RENTI AL/PL ATELE T eos (absolute) 0.1 x10e3 /uL 0.0-0. 4 normal Not Available [facility] ([facility]) [address] [facility], [place], [address], 04/01/2025 05:11:54 03/31/20 25 04/01/2025 CBC WITH DIFFE RENTI AL/PL ATELE T baso (absolute) 0.0 x10e3 /uL 0.0-0. 2 normal Not Available [facility] ([facility]) [address] [facility], [place], [address], 04/01/2025 05:11:54 03/31/20 25 04/01/2025 CBC WITH DIFFE RENTI AL/PL ATELE T immature granulocytes 0 % not estab. Not Available [facility] ([facility]) [address] [place], [address], 04/01/2025 05:11:54 03/31/20 25 04/01/2025 CBC WITH DIFFE RENTI AL/PL ATELE T immature grans (abs) 0.0 x10e3 /uL 0.0-0. 1 Not Available [facility] ([facility]) [address] [place], [address], 04/01/2025 05:11:54 03/31/20 25 04/01/2025 CBC WITH DIFFE RENTI AL/PL ATELE T NRBC INTERNET CONSULTANT Not Available [facility] ([facility]) [address] [place], [address], 04/01/2025 05:11:54 03/31/20 25 04/01/2025 CBC WITH DIFFE BRANDONTI AL/PL АЛЕКСАНДРLE T hematology comments: INTERNET CONSULTANT Not Available [facility] ([facility]) [address] [facility], [place], [address], 04/01/2025 05:11:54 03/31/20 25 04/01/2025 COMP. METAB OLIC PANEL (14) glucose 84 mg/dL 70-99 normal Not Available [facility] ([facility]) [address] [facility], [place], [address], 04/01/2025 05:11:54 03/31/20 25 04/01/2025 COMP. METAB OLIC PANEL (14) BUN 10 mg/dL 6-24 normal Not Available [facility] ([facility]) [address] [facility], [place], [address], 04/01/2025 05:11:54 03/31/20 25 04/01/2025 COMP. METAB OLIC PANEL (14) creatinine 0.83 mg/dL 0.57-1 .00 normal Not Available [facility] ([facility]) [address] [facility], [place], [address], 04/01/2025 05:11:54 03/31/20 25 04/01/2025 COMP. METAB OLIC PANEL (14) eGFR 82 mL/mi n/1.7 3 >59 normal Not Available [facility] ([facility]) [address] [facility], [place], [address], 04/01/2025 05:11:54 03/31/20 25 04/01/2025 COMP. METAB OLIC PANEL (14) BUN/creatini ne ratio 12 9-23 normal Not Available [facility] ([facility]) [address] [facility], [place], [address], 04/01/2025 05:11:54 03/31/20 25 04/01/2025 COMP. METAB OLIC PANEL (14) sodium 139 mmol/ L 134-14 4 normal Not Available [facility] ([facility]) [address] [facility] [place], [address], 04/01/2025 05:11:54 03/31/20 25 04/01/2025 COMP. METAB OLIC PANEL (14) potassium 4.3 mmol/ L 3.5-5. 2 normal Not Available [facility] ([facility]) [address] [facility] [place], [address], 04/01/2025 05:11:54 03/31/20 25 04/01/2025 COMP. METAB OLIC PANEL (14) chloride 101 mmol/ L 96-106 normal Not Available [facility] ([facility]) [address] [facility] [place], [address], 04/01/2025 05:11:54 03/31/20 25 04/01/2025 COMP. METAB OLIC PANEL (14) carbon dioxide, total 24 mmol/ L 20-29 normal Not Available [facility] ([facility]) [address] [facility] [place], [address], 04/01/2025 05:11:54 03/31/20 25 04/01/2025 COMP. METAB OLIC PANEL (14) calcium 9.8 mg/dL 8.7-10 .2 normal Not Available [facility] ([facility]) [address] [facility] [place], [address], 04/01/2025 05:11:54 03/31/20 25 04/01/2025 COMP. METAB OLIC PANEL (14) protein, total 7.5 g/dL 6.0-8. 5 normal Not Available [facility] ([facility]) [address] [facility] [place], [address], 04/01/2025 05:11:54 03/31/20 25 04/01/2025 COMP. METAB OLIC PANEL (14) albumin 4.6 g/dL 3.8-4. 9 normal Not Available [facility] ([facility]) [address] [facility] [place], [address], 04/01/2025 05:11:54 03/31/20 25 04/01/2025 COMP. METAB OLIC PANEL (14) globulin, total 2.9 g/dL 1.5-4. 5 Not Available [facility] ([facility]) [address] [facility] [place], [address], 04/01/2025 05:11:54 03/31/20 25 04/01/2025 COMP. METAB OLIC PANEL (14) bilirubin, total 0.3 mg/dL 0.0-1. 2 normal Not Available [facility] ([facility]) [address] [facility] [place], [address], 04/01/2025 05:11:54 03/31/20 25 04/01/2025 COMP. METAB OLIC PANEL (14) alkaline phosphatase 72 IU/L 44-121 normal Not Available [facility] ([facility]) [address] [facility] [place], [address], 04/01/2025 05:11:54 03/31/20 25 04/01/2025 COMP. METAB OLIC PANEL (14) AST (SGOT) 22 IU/L 0-40 normal Not Available [facility] ([facility]) [address] [facility] [place], [address], 04/01/2025 05:11:54 03/31/20 25 04/01/2025 COMP. METAB OLIC PANEL (14) ALT (SGPT) 10 IU/L 0-32 normal Not Available [facility] ([facility]) [address] [facility] [place], [address], 04/01/2025 05:11:54 Result Notes None recorded. Problems Name Problem SNOMED Code Status Onset Date Resolution Date Notes Provider Name and Address Organization Details Recorded Time Fibromyalgia 615958830 Active 2024 MADIE anne, [place] - [facility] 08:53:10 Pain of ear 389844556 Active 2024 Jayde Aguilera MD [address], [place], [address], [place] [facility] 07:27:32 Problem Notes None recorded. Procedures Surgical History Date Name Laterality Status Provider Name and Address Organization Details Recorded Time no surgical history completed [place] QU[place] [facility] 11/21/2024 08:46:10 Imaging Results None recorded. [...] Not Available Not Available Not Available Vitals Date Recorded Body height Body mass index (BMI) Body weight Oxygen saturation Oxygen saturation in Arterial blood by Pulse oximetry Heart rate Systolic blood pressure Diastolic blood pressure Provider Name and Address Organization Details Last Updated DateTime 160.02 cm 21.3 kg/m2 48095.0 8 g 98 % 98 % 101 /min 115 mm[Hg] 70 mm[Hg] [place]HE[place] [facility] 08:57:47 Social History Question Answer Notes LastModified by Organizat ion Details LastModified Time Tobacco Smoking Status Never Smoker MADIE MATHEW [facility], [place] [facility] 11/21/2024 08:46:10 What Is Your Level Of Caffeine Consumption? Heavy [email or web address] Information not available 11/21/2024 How Much Tobacco Do You Chew? None [email or web address] Information not available 11/21/2024 What Is The Highest Grade Or Level Of School You Have Completed Or The Highest Degree You Have Received? [id number] [email or web address] Information not available 11/21/2024 Cigar Smoking No [email or web address] Information not available 11/21/2024 Does Anyone Insult Or Talk Down To You? Never [email or web address] Information not available 11/21/2024 Does Anyone Physically Hurt You At Home? Never Information not available 11/21/2024 Does Anyone Scream Or Curse At You? Never [email or web address] Information not available 11/21/2024 Does Anyone Threaten/bully You With Harm? Never [email or web address] Information not available 11/21/2024 Lives With [place] [email or web address] Information no t available 11/21/2024 Sleep Habits Great! [email or web address] Information not available 11/21/2024 Have You Ever Served In The ? No [email or web address] Information not available 11/21/2024 What Was The Date Of Your Most Recent Tobacco Screening? 11/21/2024 Information not available 11/21/2024 What Is Your Relationship Status? [email or web address] Information not available 11/21/2024 Has Tobacco Cessation Counseling Been Provided? Yes [email or web address] Information not available 11/21/2024 On What Date Was Tobacco Cessation Counseling Provided? 11/21/2024 [email or web address] Information not available 11/21/2024 Sex: Unknown Functional Status Question Answer Note LastModified by Organizat ion Details LastModified Time Do you or have you ever used any other forms of tobacco or nicotine? No [email or web address] Information not available 11/21/2024 Do you or have you ever used smokeless tobacco? 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 Family History Relationship Description Onset Age of this Age Resolved Age Notes LastModified by Organization Details LastModified Time Father Malignant neoplasm of lung [email or web address] Not available 11/21 08:46:09 Medical History Condition Response Fibromyalgia Y Gynecological HistoryNo gynecological history recorded. Obstetrics History GPAL:G 0 P 0 0 0 0 Immunizations Vaccine Type Date Status Note Provider Nam e and Address Organization Details Recorded Time COVID-19, mRNA, LNP-S, PF, 100 mcg/0.5mL dose or 50 mcg/0.25mL dose 12/22/2020 completed [place]AD[place] [facility] 11/21/2024 08:44:58 COVID-19, mRNA, LNP-S, PF, 100 mcg/0.5mL dose or 50 mcg/0.25mL dose 01/21/2021 completed MADIE anne, [place] [facility] 11/21/2024 08:44:58 Influenza, high-dose, trivalent, PF 09/12/2017 completed MADIE anne, [place] [facility] 11/21/2024 08:44:58 Past Encounters Encounter ID Performer Location Encounter Start Date Encounter Closed Date Diagnosis/Indication Diagnosis SNOMED-CT Code Diagnosis ICD10 Code Diagnosis Note [id number] Eliel Guardado MD [facility] [address] [place] [address] 11/21/2024 08:34:38 11/21/2024 10:19:43 Acute low back pain 572190517 M54.50 Discussed the different characteri stics of muscular and radicular back pain. Recommende d ice 20 minutes on, 20 minutes off. Change positions frequently . Take a 10-20 minute walk daily. Counseled on safe core strengthen ing activities to begin once acute pain has resolved. Reinforced good posture and lifting techniques moving forward.Ho ld meloxicam while on MDP. Advised her to take MDP as per product card - had to Rx as I did d/t unable to find a taper function in [place]. Spent 35 minutes with patient today [id number] Eliel Guardado MD [facility] [address] [place] [address] 11/24/2024 07:00:18 11/24/2024 07:03:28 Osteoarthritis 864853028 M19.90 Patient presents today for blood test noted below ordered by: Ekta rosario explained and patient verbalized understand ing of the procedure and labs to be drawn today. Venipunctu re performed using aseptic technique in the side of left antecubita l. Venipunctu re successful on the first attempt without complicati ons. If complicati ons: Dressing applied to the site(s) and pressure held. No signs or symptoms of venipunctu re complicati ons observed. Lab results sent to .Patient left ambulatory with no complaints of pain or discomfort voiced. [id number] Jayde Aguilera MD [facility] [address] [place] [address] 12/02/2024 07:23:27 12/02/2024 07:33:22 Pain of ear 310811990 H92.02 Pt. given wait and see rx. for amoxicilli n.If symptoms persist or worsen she may take the antibiotic .In the interim, pt. to start Flonase 2 sprays/nos tril daily + ibuprofen prn. [id number] [place] [facility] [address] [place] [address] 03/31/2025 10:46:08 03/31/2025 10:58:04 Osteoarthritis 488176519 M15.0 Patient presents today for blood test [...] by Organization Details LastModified Time None Recorded Advance Directives Directive None Recorded Payers Insurance Date Sequence Insurance Name Policy Number Policy Padron Covered Member ID Padron Member ID Guarantor Name 09/01/2024 1 *SELF PAY* UNKNOWN Jacinta Isra [id number] PYYQJOSE DE JESUS Dhaliwal 03/30/[address] 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 [place] a pinch in her back, can't stand up straight. Denies any radicular sxs. Tried stretching and used heat/cold. Not much benefit. Taking meloxicam qod d/t some stomach sxs. MADIE anne, [place] - [facility] 11/24/2024 06:56:30 12/02/2024 text/html 59 y/o F patient evaluated via phone visit for L ear pain.Pt. reports symptoms began on Sunday with myalgias, head congestion.Yesterday L ear became painful along with burning sensation in her sinuses.Taking Advil Cold and Sinus without improvement.Denies any otic drainage.Denies any fever or chills.Pt. describes L ear pain as a constant ache.Pt. does not have a history of recurrent otitis. This encounter was undertaken via telephone. I introduced myself as Jayde Aguilera MD, and greeted the patient by name and then verified their location. We reviewed the appropriateness of virtual care for this visit and the limitations of telemedicine. All issues below were discussed and addressed but no physical exam was performed except as documented. If it was felt the patient should be evaluated [id number], they were directed to the clinic for care either now or at a subsequent visit as indicated below. Verbal consent for telemedicine visit obtained from the patient. Jayde Aguilera MD [address], [place], [address], [place] - [facility] 12/02/2024 07:33:09 OBGyn Episode No OBEpisode recorded.
--- OUTSIDE RECORDS SUMMARY | 2025-04-02 09:45 | XMS_ITS | CCD ---
Author Organization [facility] Care Team Providers Care [employer] Professional Name Role Phone CHANTE, DR POZO Attending [...] Drug Class(es) Dates Sig (Normalized) Sig (Original) [id number] 200 actuat albuterol 0.09 mg/actuat metered dose [...] : DR SÁNCHEZ CORDOBA . Admission #: [id number] Family : Order #: [id number] CLICK HERE TO VIEW EXAM RADIOLOGY REPORT [...] lung cancer at age 72. LOCATION: [facility] BREAST COMPOSITION: Heterogeneously dense,which may obscure [...] MD on 05/08/2022 at 09:04 Normal [facility] CBC AUTO DIFFon 04-27-2022 BASO # 0.0 103/ul Normal 0.0-0.1 [facility] Comment on above: Performed By: #### C BC #### [facility] [address] [place] [address] Dr. Lisbeth Parks Basophils/100 WBC (Bld) 0.9 % Normal 0.2-2.0 [facility] Comment on above: Performed By: #### C BC #### [facility] [address] [place] [address] Dr. Lisbeth Parks EO # 0.1 103/ul Normal 0.0-0.7 [facility] Comment on above: Performed By: #### C BC #### [facility] [address] [place] [address] Dr. Lisbeth Parks Eosinophils/100 WBC (Bld) 3.0 % Normal 0.9-7.0 [facility] Comment on above: Performed By: #### C BC #### [facility] [address] [place] [address] Dr. Lisbeth Parks Erythrocyte distribution width (RBC) [Ratio] 13.1 % Normal 11.0-15.0 [facility] Comment on above: Performed By: #### C BC #### [facility] [address] [place] [address] Dr. Lisbeth Parks Hematocrit (Bld) [Volume fraction] 41.5 % Normal 36.0-48.0 [facility] Comment on above: Performed By: #### C BC #### [facility] [address] [place] [address] Dr. Lisbeth Parks Hemoglobin (Bld) [Mass/Vol] 13.4 g/dL Normal 12.0-16.0 [facility] Comment on above: Performed By: #### C BC #### [facility] [address] [place] [address] Dr. Lisbeth Parks IG # 0.01 10e3/ul Normal 0.00-0.03 [facility] Comment on above: Performed By: #### C BC #### [facility] [address] [place] [address] Dr. Lisbeth Parks IG % 0.2 % Normal 0.0-0.5 [facility] Comment on above: Performed By: #### C BC #### [facility] [address] [place] [address] Dr. Lisbeth Parks LYMPH # 1.5 103/ul Normal 1.2-3.8 [facility] Comment on above: Performed By: #### C BC #### [facility] [address] [place] [address] Dr. Lisbeth Parks Lymphocytes/100 WBC (Bld) 34.4 % Normal 20.5-60.0 [facility] Comment on above: Performed By: #### C BC #### [facility] [address] [place] [address] Dr. Lisbeth Parks MANUAL DIFF REQ NO Normal [facility] Comment on above: Performed By: #### C BC #### [facility] [address] [place] [address] Dr. Lisbeth Parks MCH (RBC) [Entitic mass] 30.7 pg Normal 26.7-34.0 [facility] Comment on above: Performed By: #### C BC #### [facility] [address] [place] [address] Dr. Lisbeth Parks MCHC (RBC) [Mass/Vol] 32.3 g/dL Normal 29.9-35.2 [facility] Comment on above: Performed By: #### C BC #### [facility] [address] [place] [address] Dr. Lisbeth Parks MCV (RBC) [Entitic vol] 95.0 fL Normal 81.0-99.0 [facility] Comment on above: Performed By: #### C BC #### [facility] [address] [place] [address] Dr. Lisbeth Parks MONO # 0.4 103/ul Normal 0.3-0.8 [facility] Comment on above: Performed By: #### C BC #### [facility] [address] [place] [address] Dr. Lisbeth Parks Monocytes/100 WBC (Bld) 10.1 % Normal 1.7-12.0 [facility] Comment on above: Performed By: #### C BC #### [facility] [address] [place] [address] Dr. Lisbeth Parks NEUT # 2.2 103/ul Normal 1.4-6.5 [facility] Comment on above: Performed By: #### C BC #### [facility] [address] [place] [address] Dr. Lisbeth Parks Neutrophils/100 WBC (Bld) 51.4 % Normal 43.0-75.0 [facility] Comment on above: Performed By: #### C BC #### [facility] [address] [place] [address] Dr. Lisbeth Parks Platelet mean volume (Bld) [Entitic vol] 9.4 fL Critically low 9.5-13.5 [facility] Comment on above: Performed By: #### C BC #### [facility] [address] [place] [address] Dr. Lisbeth Parks PLT 363 103/ul Normal 150-450 [facility] Comment on above: Performed By: #### C BC #### [facility] [address] [place] [address] Dr. Lisbeth Parks RBC 4.37 106/ul Normal 4.20-5.40 [facility] Comment on above: Performed By: #### C BC #### [facility] [address] [place] [address] Dr. Lisbeth Parks WBC 4.3 103/ul Normal 4.0-11.0 [facility] Comment on above: Performed By: #### C BC #### [facility] [address] [place] [address] Dr. Lisbeth Parks FREE THYROXINE INDEX T7on FTI 2.53 Normal 1.30-4.50 [facility] Comment on above: Performed By: #### T SH, LIPID, T7, CMP #### [facility] [address] [place] [address] Dr. Lisbeth Parks T3U 32.0 % Normal 30.0-39.0 [facility] Comment on above: Performed By: #### T SH, LIPID, T7, CMP #### [facility] [address] [place] [address] Dr. Lisbeth Parks T4 [Mass/Vol] 7.90 ug/dL Normal 4.80-13.90 [facility] Comment on above: Performed By: #### T SH, LIPID, T7, CMP #### [facility] [address] [place] [address] Dr. Lisbeth Parks GLYCOHEMOGLOBIN A1Con 2021 ADA RECOMMENDATION SEE BELOW Normal [facility] Comment on above: Result Comment: ADA RECOMMENDED LIMIT 4.0 - 6.0 ADA THERAPEUTIC TARGET < 7.0 ACTION SUGGESTED > 7.0 Performed By: #### T SH, LIPID, T7, CMP #### [facility] [address] [address] [address] Lisbeth Parks Glucose [Mass/Vol] 120 mg/dL Normal [facility] Comment on above: Performed By: #### T SH, LIPID, T7, CMP #### [facility] [address] [address] [address] Lisbeth Parks HbA1c (Bld) [Mass fraction] 5.8 % Normal 4.5-6.2 [facility] Comment on above: Performed By: #### T SH, LIPID, T7, CMP #### [facility] [address] [address] [address] Lisbeth Parks IRONon 04-27-2022 Iron [Mass/Vol] 113.0 ug/dL Normal 50.0-170.0 [facility] Comment on above: Performed By: #### T SH, LIPID, T7, CMP #### [facility] [address] [place] [address] Dr. Lisbeth Parks LIPID PROFILEon 04-27-2022 CHOL-HDL RATIO NORM SEE BELOW Normal [facility] Comment on above: Result Comment: 3.3 - 4.4 LOW RISK 4.4 - 7.1 AVERAGE RISK 7.1 - 11.0 MODERATE RISK >11.0 HIGH RISK Performed By: #### T SH, LIPID, T7, CMP #### [facility] [address] [place] [address] Dr. Lisbeth Parks Cholesterol [Mass/Vol] 177 mg/dL Normal <=200 [facility] Comment on above: Performed By: #### T SH, LIPID, T7, CMP #### [facility] [address] [address] [address] Lisbeth Parks Cholesterol in HDL [Mass/Vol] 83 mg/dL Critically high 40-60 [facility] Comment on above: Performed By: #### T SH, LIPID, T7, CMP #### [facility] [address] [address] [address] Lisbeth Parks Cholesterol in LDL [Mass/Vol] 83.4 mg/dL Normal [facility] Comment on above: Performed By: #### T SH, LIPID, T7, CMP #### [facility] [address] [address] [address] Lisbeth Parks Cholesterol.total/Cho lesterol in HDL [Mass ratio] 2.1 {ratio} Normal [facility] Comment on above: Performed By: #### T SH, LIPID, T7, CMP #### [facility] [address] [address] [address] Lisbeth Parks HDL NORMAL > or = 60 mg/dl - LO W CARDIOVASCULAR RISK <40 mg/dl - HIGH CARDIOVASCULAR RISK Normal [facility] Comment on above: Performed By: #### T SH, LIPID, T7, CMP #### [facility] [address] [place] [address] Dr. Lisbeth Parks LDL CALC NORMAL SEE BELOW Normal [facility] Comment on above: Result Comment: <100 mg/dl OPTIMAL 100 - 129 mg/dl NEAR OR ABOVE OPTIMAL 130 - 159 mg/dl BORDERLINE HIGH 160 - 189 mg/dl HIGH >190 mg/dl VERY HIGH Performed By: #### T SH, LIPID, T7, CMP #### [facility] [address] [place] [address] Dr. Lisbeth Parks Triglyceride [Mass/Vol] 53 mg/dL Normal <=150 [facility] Comment on above: Performed By: #### T SH, LIPID, T7, CMP #### [facility] [address] [address] [address] Lisbeth Parks VLDL CALC 10.6 mg/dL Normal [facility] Comment on above: Performed By: #### T SH, LIPID, T7, CMP #### [facility] [address] [address] [address] Lisbeth Parks PROF 14(COMP METB)on 022 Albumin [Mass/Vol] 4.1 g/dL Normal 3.4-5.0 [facility] Comment on above: Performed By: #### T SH, LIPID, T7, CMP #### [facility] [address] [place] [address] Dr. Lisbeth Parks Albumin/Globulin [Mass ratio] 1.1 {ratio} Normal [facility] Comment on above: Performed By: #### T SH, LIPID, T7, CMP #### [facility] [address] [address] [address] Lisbeth Parks ALP [Catalytic activity/Vol] 72 U/L Normal 46-116 [facility] Comment on above: Performed By: #### T SH, LIPID, T7, CMP #### [facility] [address] [address] [address] Lisbeth Parks ALT [Catalytic activity/Vol] 19 U/L Normal 14-59 [facility] Comment on above: Performed By: #### T SH, LIPID, T7, CMP #### [facility] [address] [place] [address] Dr. Lisbeth Parks Anion gap [Moles/Vol] 8.7 mmol/L Normal [facility] Comment on above: Performed By: #### T SH, LIPID, T7, CMP #### [facility] [address] [place] [address] Dr. Lisbeth Parks AST [Catalytic activity/Vol] 18 U/L Normal 15-37 [facility] Comment on above: Performed By: #### T SH, LIPID, T7, CMP #### [facility] [address] [place] [address] Dr. Lisbeth Parks Bilirubin [Mass/Vol] 0.4 mg/dL Normal 0.2-1.0 [facility] Comment on above: Performed By: #### T SH, LIPID, T7, CMP #### [facility] [address] [place] [address] Dr. Lisbeth Parks Calcium [Mass/Vol] 9.3 mg/dL Normal 8.5-10.1 [facility] Comment on above: Performed By: #### T SH, LIPID, T7, CMP #### [facility] [address] [place] [address] Dr. Lisbeth Parks Chloride [Moles/Vol] 102 mmol/L Normal 98-107 [facility] Comment on above: Performed By: #### T SH, LIPID, T7, CMP #### [facility] [address] [place] [address] Dr. Lisbeth Parks CO2 [Moles/Vol] 31.9 mmol/L Normal 21.0-32.0 [facility] Comment on above: Performed By: #### T SH, LIPID, T7, CMP #### [facility] [address] [address] [address] Lisbeth Parks Creatinine [Mass/Vol] 0.87 mg/dL Normal 0.55-1.02 [facility] Comment on above: Performed By: #### T SH, LIPID, T7, CMP #### [facility] [address] [address] [address] Lisbeth Parks EGFR-AF ICELANDIC >60 Normal >=60 [facility] Comment on above: Performed By: #### T SH, LIPID, T7, CMP #### [facility] [address] [place] [address] Dr. Lisbeth Parks EGFR-NON AF ICELANDIC >60 Normal >=60 [facility] Comment on above: Performed By: #### T SH, LIPID, T7, CMP #### [facility] [address] [address] [address] Lisbeth Parks Globulin (S) [Mass/Vol] 3.7 g/dL Normal [facility] Comment on above: Performed By: #### T SH, LIPID, T7, CMP #### [facility] [address] [place] [address] Dr. Lisbeth Parks Glucose [Mass/Vol] 93 mg/dL Normal 74-106 [facility] Comment on above: Performed By: #### T SH, LIPID, T7, CMP #### [facility] [address] [address] [address] Lisbeth Parks Potassium [Moles/Vol] 4.6 mmol/L Normal 3.5-5.1 [facility] Comment on above: Performed By: #### T SH, LIPID, T7, CMP #### [facility] [address] [place] [address] Dr. Lisbeth Parks Protein [Mass/Vol] 7.8 g/dL Normal 6.4-8.2 [facility] Comment on above: Performed By: #### T SH, LIPID, T7, CMP #### [facility] [address] [place] [address] Dr. Lisbeth Parks Sodium [Moles/Vol] 138 mmol/L Normal 136-145 [facility] Comment on above: Performed By: #### T SH, LIPID, T7, CMP #### [facility] [address] [place] [address] Dr. Lisbeth Parks Urea nitrogen [Mass/Vol] 7.0 mg/dL Normal 7.0-18.0 [facility] Comment on above: Performed By: #### T SH, LIPID, T7, CMP #### [facility] [address] [place] [address] Dr. Lisbeth Parks Urea nitrogen/Creatinine [Mass ratio] 8.0 mg/mg Normal [facility] Comment on above: Performed By: #### T SH, LIPID, T7, CMP #### [facility] [address] [place] [address] Dr. Lisbeth Parks TSHon 04-27-2022 TSH 3.256 uIU/mL Normal 0.358-3.740 [facility] Comment on above: Performed By: #### T SH, LIPID, T7, CMP #### [facility] [address] [place] [address] Dr. Lisbeth Parks CBC AUTO DIFFon 05-18-2021 BASO # 0.0 103/ul Normal 0.0-0.1 [facility] Comment on above: Performed By: #### C BC #### [facility] [address] [place] [address] Ross Lisa Basophils/100 WBC (Bld) 0.5 % Normal 0.2-2.0 [facility] Comment on above: Performed By: #### C BC #### [facility] [address] [place] [address] Ross Lisa EO # 0.0 103/ul Normal 0.0-0.7 [facility] Comment on above: Performed By: #### C BC #### [facility] [address] [place] [address] Ross Lisa Eosinophils/100 WBC (Bld) 0.7 % Critically low 0.9-7.0 [facility] Comment on above: Performed By: #### C BC #### [facility] [address] [place] [address] Ross Gonzalez Erythrocyte distribution width (RBC) [Ratio] 13.2 % Normal 11.0-15.0 [facility] Comment on above: Performed By: #### C BC #### [facility] [address] [place] [address] Ross Gonzalez Hematocrit (Bld) [Volume fraction] 41.8 % Normal 36.0-48.0 [facility] Comment on above: Performed By: #### C BC #### [facility] [address] [place] [address] Ross Gonzalez Hemoglobin (Bld) [Mass/Vol] 13.6 g/dL Normal 12.0-16.0 [facility] Comment on above: Performed By: #### C BC #### [facility] [address] [place] [address] Rosschele Gonzalez IG # 0.01 10e3/ul Normal 0.00-0.03 [facility] Comment on above: Performed By: #### C BC #### [facility] [address] [place] [address] Rosschele Gonzalez IG % 0.2 % Normal 0.0-0.5 [facility] Comment on above: Performed By: #### C BC #### [facility] [address] [place] [address] Ross Lisa LYMPH # 1.4 103/ul Normal 1.2-3.8 [facility] Comment on above: Performed By: #### C BC #### [facility] [address] [place] [address] Ross Gonzalez Lymphocytes/100 WBC (Bld) 24.5 % Normal 20.5-60.0 [facility] Comment on above: Performed By: #### C BC #### [facility] [address] [place] [address] Ross Gonzalez MANUAL DIFF REQ NO Normal [facility] Comment on above: Performed By: #### C BC #### [facility] [address] [address] Rosschele Gonzalez MCH (RBC) [Entitic mass] 30.4 pg Normal 26.7-34.0 [facility] Comment on above: Performed By: #### C BC #### [facility] [address] [place], [place] [address] Rosschele Dollen MCHC (RBC) [Mass/Vol] 32.5 g/dL Normal 29.9-35.2 [facility] Comment on above: Performed By: #### C BC #### [facility] [address] [place], [place] [address] Ross Lisa MCV (RBC) [Entitic vol] 93.5 fL Normal 81.0-99.0 [facility] Comment on above: Performed By: #### C BC #### [facility] [address] [place], [place] [address] Ross Lisa MONO # 0.5 103/ul Normal 0.3-0.8 [facility] Comment on above: Performed By: #### C BC #### [facility] [address] [place], [place] [address] Ross Lisa Monocytes/100 WBC (Bld) 9.6 % Normal 1.7-12.0 [facility] Comment on above: Performed By: #### C BC #### [facility] [address] [place], [place] [address] Ross Lisa NEUT # 3.6 103/ul Normal 1.4-6.5 [facility] Comment on above: Performed By: #### C BC #### [facility] [address] [place], [place] [address] Ross Lisa Neutrophils/100 WBC (Bld) 64.5 % Normal 43.0-75.0 [facility] Comment on above: Performed By: #### C BC #### [facility] [address] [place], [place] [address] Ross Lisa Platelet mean volume (Bld) [Entitic vol] 9.7 fL Normal 9.5-13.5 [facility] Comment on above: Performed By: #### C BC #### [facility] [address] [place], [place] [address] Ross Lisa PLT 298 103/ul Normal 150-450 [facility] Comment on above: Performed By: #### C BC #### [facility] [address] [address] Rosschele Dollen RBC 4.47 106/ul Normal 4.20-5.40 [facility] Comment on above: Performed By: #### C BC #### [facility] [address] [address] Ross Lisa WBC 5.5 103/ul Normal 4.0-11.0 [facility] Comment on above: Performed By: #### C BC #### [facility] [address] [address] Ross Lisa [facility] 9 mm/hr Normal <=30 [facility] Comment on above: Performed By: #### S EDR #### [facility] [address] [address] Ross Gonzalez URIC ACID SERUMon 05-18-2021 Urate [Mass/Vol] 5.0 mg/dL Normal 2.5-6.2 [facility] Comment on above: Performed By: #### T SH, LIPID, T7, CMP #### [facility] [address] [place], [place] [address] Dr. Lisbeth Parks Outside Colonoscopyon 2020 Outside Colonoscopy [id number]. 00CD:127 Normal [facility] Lab Reportson 04-12-2021 Lab Reports [id number]. 00CD:127 Normal [facility] Pre-Certification Formon Pre-Certification Form [id number] .[id number]:127 Normal [facility] Consent for Procedure/Surger yon 03-30-2021 Consent for Procedure/Surgery [id number] .00CD:127 Normal [facility] [place] [facility] [place] [facility] [place] 30, 2021 Sánchez Hosoto, [address] [address] [place] [address] Re: JACINTA DHALIWAL Date of : 1965 Thank you for your referral of Jacinta Dhaliwal who was seen on consultation for screening colonoscopy. I have enclosed my consultation notes for your review and will be happy to follow Jacinta. Sincerely, Edvin Padgett MD General Surgery Normal [facility] Ambulatory Clinical Summaryo n 03-29-2021 Ambulatory Clinical Summary {[id number]}CD:[id number] Normal [facility] Patient Educationon 03-29-20 21 Patient Education Colonoscopy [...] ? Medicines taken, including vitamins, herbs, eyedrops, rtwh-oyo-hxfwaft medicines, and creams. ? Use of steroids [...] medicines have worn off. ? Only take hkpw-xvx-iabqytn or prescription medicines for pain, discomfort, or [...] Document Reviewed: 05/27/2009 ExitCare? Patient Information ?2014 [email or web address] Radiology Colonoscopy, Adult, Care After This sheet [...] slower pace than normal. ? Eat soft, qdzd-ct-akxcjp foods. ? Take rikm-qcx-isvjqnh or prescription medicines only as told by [...] your h (more content not included)... Normal [facility] Physician Referralon 021 Physician Referral [id number] .[id number]:127 Normal [facility] Vital Signs Date Time Vital Sign Value Performing Clinician Facility 03-24-2023 09:15-0400 Body height 160.02 cm Paula Gruber Other [facility] Other 03-24-2023 09:15-0400 Body mass index (BMI) [Ratio] 20.69 kg/m2 Paula Gruber Other [facility] Other 03-24-2023 09:15-0400 Body temperature 98 [degF] Paula Gruber Other [facility] Other 03-24-2023 09:15-0400 Body weight 52.98 kg Paula Gruber Other [facility] Other 03-24-2023 09:15-0400 Respiratory rate 18 /min Paula Allyn Other [facility] Other 03-24-2023 09:15-0400 SaO2% (BldA) [Mass fraction] 98 % Paula Allyn Other [facility] Other 02-11-2023 10:05-0400 Body height 160.02 cm Paula Allyn Other [facility] Other 02-11-2023 10:05-0400 Body mass index (BMI) [Ratio] 20.9 kg/m2 Paula Allyn Other [facility] Other 02-11-2023 10:05-0400 Body temperature 98.6 [degF] Paula Allyn Other [facility] Other 02-11-2023 10:05-0400 Body weight 53.52 kg Paula Allyn Other [facility] Other 02-11-2023 10:05-0400 Respiratory rate 18 /min Paula Allyn Other [facility] Other 02-11-2023 10:05-0400 SaO2% (BldA) [Mass fraction] 99 % Paula Allyn Other [facility] Other Encounters Encounter Date Encounter Type Care Provider Facility Start: 03-24-2023 End: 03-24-2023 ambulatory Paula Gruber Other [facility] Other Start: 03-24-2023 Office outpatient vi sit 15 minutes Paula Gruber [facility] Start: 02-11-2023 End: 02-11-2023 ambulatory Paula Gruber Other [facility] Other Start: 02-11-2023 Office outpatient vi sit 15 minutes Paula Gruber [facility] Start: 05-08-2022 End: 05-09-[address] SÁNCHEZ CORDOBA Facility:[facility] Start: 05-04-2022 Encounter for genera l adult medical examination without abnormal findings DR SÁNCHEZ CORDOBA [facility] Start: 04-27-2022 End: 04-28-[address] SÁNCHEZ CORDOBA Facility:[facility] Start: 04-27-2022 End: 04-28-2022 Encounter for general adult medical examination without abnormal findings DR SÁNCHEZ CORDOBA Facility:[facility] Start: 05-18-2021 End: 05-19-[address] SÁNCHEZ CORDOBA Facility:[facility] Payers Date Payer Category Payer Unknown [id number] [id number] [id number] 1965 Unknown [id number] [id number] [id number] 1965 Unknown [id number] [id number] [id number] 1957 Unknown [id number] Social History Date Type Detail Facility Unknown if ever smoked [facility] Other Sex Assigned At Sex Assigned At Bir th [facility] Other Evaluation note 03-24-2023 Note Date & [...] if no improvement in 2 to 3-day [facility] Other Evaluation note 02-11-2023 Note Date & [...] days. Jan, Other Conjunctivitis material was printed [facility] Other Clinical Note 04-27-2022 Note Date & Type Note Facility 04-27-2022 Note PROCEDURE: XR SHOULD ER LT 2V or > COMPARISON: None. HISTORY: Impingement syndrome of shoulder region FINDINGS: BONES:No fracture, acute abnormality, or significant arthropathy. SOFT TISSUES:Negative. No visible soft tissue swelling. EFFUSION:None visible. OTHER: Negative. IMPRESSION: No acute abnormality Electronically authenticated by: KEVIN TA Date: 2022-04-27 17:20 [facility] Clinical Note 05-18-2021 Note Date & [...] by: KEVIN TA Date: 2021-05-18 13:48 [facility] Clinical Note 03-29-2021 Note Date & [...] Recorded SARS-CoV-2 (COVID-19) mRNA-1273 vaccine 12/22/2020 Recorded [facility] Comment on above: Result Comment: Elec tronically Signed By: JOHN UGARTE, Edvin Boo\Date and Time Signed: 03/29/21 13:57 EDT History general Narrative - Reported Note Date & Type Note Facility History general Narrative - Reported Type Medical History anxiety Medical History [facility] Other Summary Purpose Family History No Family History Records FoundNo Family History Records Found Advance Directives No Advanced Directives Records FoundNo Advanced Directives Records Found Additional Source Comments INFORMATION SOURCE (unrecogn ized section and content) DATE CREATED AUTHOR 04/15/2021 [facility] DATE CREATED AUTHOR AUTHOR'S ORGANIZ ATION 05/17/2022 [facility] REASON FOR VISIT (unrecogniz ed [...] BE BASED ON THE PRIMARY CLINICAL RECORDS. [facility]. provides no warranty or guarantee of the accuracy or completeness of information in this document.
[2025-04-02 09:48] LABS: Basophils Percent Auto 0.5 % (0.2-2.0); Eosinophils Absolute Auto 0.1 10^3/uL (0.0-0.7); Eosinophils Percent Auto 1.9 % (0.9-7.0); Hematocrit 41.8 % (36.0-48.0); Hemoglobin 13.9 g/dL (12.0-16.0); Immature Granulocytes Abs Auto 0.01 10^3/uL (0.00-0.03); Immature Granulocytes Pct Auto 0.2 % (0.0-0.5); Lymphocytes Absolute Auto 1.4 10^3/uL (1.2-3.8); Lymphocytes Percent Auto 33.2 % (20.5-60.0); Mean Corpuscular HGB Conc 33.3 g/dL (29.9-35.2); Mean Corpuscular Hemoglobin 30.3 pg (26.7-34.0); Mean Corpuscular Volume 91.3 fL (81.0-99.0); Mean Platelet Volume 9.1 fL (9.5-13.5); Monocytes Absolute Auto 0.3 10^3/uL (0.3-0.8); Monocytes Percent Auto 8.2 % (1.7-12.0); Neutrophils Absolute Auto 2.3 10^3/uL (1.4-6.5); Platelet Count 292 10^3/uL (150-450); Red Blood Count 4.58 10^6/uL (4.20-5.40); Red Cell Distribution Width 12.5 % (11.0-15.0); White Blood Count 4.2 10^3/uL (4.0-11.0)
[2025-04-02 10:05] LABS: Estimated Average Glucose 105 mg/dL; Glycohemoglobin A1C 5.3 % (4.5-6.2)
[2025-04-02 11:19] LABS: Alanine Aminotransferase 18 U/L (14-59); Albumin Globulin Ratio 1.1; Albumin Level 4.2 g/dL (3.4-5.0); Alkaline Phosphatase 70 U/L (46-116); Anion Gap 11.7; Aspartate Amino Transferase 19 U/L (15-37); BUN Creatinine Ratio 13.9; Bilirubin Total 0.5 mg/dL (0.2-1.0); Calcium 9.8 mg/dL (8.5-10.1); Carbon Dioxide 31.4 mmol/L (21.0-32.0); Chloride 103 mmol/L (98-107); Chol HDL Ratio 2.3; Cholesterol 211 mg/dL (<=200); Estimated GFR (African America >60 (>=60 mL/min/1.73m^2); Estimated GFR (Non-African Ame >60 (>=60 mL/min/1.73m^2); Free T3 2.08 pg/mL (2.18-3.98); Globulin 3.9 g/dL; Glucose 90 mg/dL (74-106); HDL Cholesterol 93 mg/dL (40-60); Potassium 4.1 mmol/L (3.5-5.1); Sodium 142 mmol/L (136-145); Thyroid Stimulating Hormone 2.473 uIU/mL (0.358-3.740); Total Protein 8.1 g/dL (6.4-8.2); Triglycerides 75 mg/dL (<=150)
[2025-04-03 04:07] LABS: Insulin 4.4 uIU/mL (2.6-24.9)
== END 2025-04-02 09:24 | disposition home or self-care (01) ==
LOC: LAB 09:25
PROVIDERS: PCP Family Medicine; Visit Provider Nurse Practitioner Family
DX: Z00.00 Encounter for general adult medical examination without abnormal findings (principal)
CPT/HCPCS: 36415; 80053; 80061; 82306; 83036; 83525; 83540; 84436; 84443; 84481; 85025